=== PATIENT | female | born 1935 | race Caucasian/White ===

== ENCOUNTER 2017-10-26 11:45 | Inpatient (IN) ==
--- NOTE | 2017-10-26 12:01 | Emergency Department Note ---
Disposition Clinical Impression: Hypotension Qualifiers: Hypotension type: unspecified hypotension type Qualified Code(s): I95.9 - Hypotension, unspecified Disposition: Still a Patient General Adult HPI - General Chief complaint: ED Allergic Reaction Stated complaint: Allergic reaction not in distress Time Seen by Provider: 10/26/17 11:50 - History of Present Illness Pain Scale: 5 - Related Data Home Medications Medication Instructions Recorded Confirmed Ascorbate Calcium/Bioflavonoid 1 each PO DAILY 01/29/17 08/21/17 [Shruthi-C 500 mg Tablet] Aspirin [Lo-Dose Aspirin EC] 81 mg PO DAILY 01/29/17 08/21/17 Atenolol/Chlorthalidone [Tenoretic 1 each PO DAILY 01/29/17 08/21/17 50 Tablet] Ergocalciferol (VITAMIN D2) 2,000 unit PO DAILY 01/29/17 08/21/17 [Vitamin D2] Febuxostat [Uloric] 40 mg PO DAILY 01/29/17 08/21/17 Fluticasone Propionate [Flovent 100 mcg IH BID 01/29/17 08/21/17 Diskus] Furosemide [Lasix] 20 mg PO QPM 01/29/17 08/21/17 Furosemide [Lasix] 40 mg PO QAM 01/29/17 08/21/17 Losartan Potassium [Cozaar] 25 mg PO DAILY 01/29/17 08/21/17 Magnesium Oxide [Magnesium] 250 mg PO DAILY 01/29/17 08/21/17 Montelukast [Singulair] 10 mg PO DAILY 01/29/17 08/21/17 Multivitamin [Multivitamins] 1 each PO AD 01/29/17 08/21/17 Nitrofurantoin Macrocrystal 100 mg PO BID 01/29/17 08/21/17 [Nitrofurantoin] [place]-3/Dha/Epa/Fish Oil [Fish Oil 1 each PO BID 01/29/17 08/21/17 1,000 mg Softgel] Potassium Chloride [K-Tab ER] 20 meq PO TID 01/29/17 08/21/17 Simvastatin [Zocor] 20 mg PO HS 01/29/17 08/21/17 Tiotropium [Spiriva] 18 mcg IH DAILY 01/29/17 08/21/17 Vitamin B12 100 mcg PO DAILY 01/29/17 08/21/17 Vitamin E (Dl,Tocopheryl Acet) 400 unit PO DAILY 01/29/17 08/21/17 [Vitamin E] Fluticasone Propionate Nasal 1 spray IN DAILY 05/18/17 08/21/17 [Flonase] Ipratropium [place] 2 spray NS BID 08/21/17 08/21/17 Ipratropium/Albuterol Neb [Duoneb] 3 ml IH Q6HR 08/21/17 08/21/17 Nitrofurantoin Macrocrystal 100 mg PO DAILY 08/21/17 08/21/17 [Nitrofurantoin] Pentoxifylline [TRENtal] 400 mg PO BIDWM 08/21/17 08/21/17 PredniSONE [Deltasone] 20 mg PO DAILY 08/21/17 08/21/17 Rivaroxaban [Xarelto] 20 mg PO DAILY 08/21/17 08/21/17 Sucralfate [Carafate] 1 gm PO BID 08/21/17 08/21/17 Sulfamethoxazole/Trimeth DS 1 each PO BID 08/21/17 08/21/17 [Bactrim DS] Allergies Allergy/AdvReac Type Severity Reaction Status Date / Time cefuroxime Allergy Rash Verified 10/26/17 11:49 cephalexin [From Keflex] Allergy Rash Verified 10/26/17 11:49 doxycycline Allergy Rash Verified 10/26/17 11:49 Penicillins [PCN] Allergy Rash Verified 10/26/17 11:49 Sulfa (Sulfonamide Allergy Rash Verified 10/26/17 11:49 Antibiotics) Past Medical History - Social History Smoking Status: Never smoker Smokeless Tobacco Status: No Alcohol use: Reports: none Drug use: Reports: none Course Vital Signs Temperature 98.3 F 10/26/17 11:47 Pulse Rate 78 10/26/17 11:47 Respiratory Rate 16 10/26/17 11:47 Blood Pressure 77/53 10/26/17 11:47 O2 Sat by Pulse Oximetry 93 10/26/17 11:47 Temperature 98.3 F 10/26/17 11:47 Pulse Rate 78 10/26/17 11:47 Respiratory Rate 16 10/26/17 11:47 Blood Pressure 77/53 10/26/17 11:47 O2 Sat by Pulse Oximetry 93 10/26/17 11:47 Oxygen Delivery Oxygen Delivery Room Air Attestation Statement - Attestation Attestation: I examined this patient and my medical decision-making was reviewed with the Resident Physician. I agree with the documented findings, disposition and treatment plan as described except to the extent set forth below. 82 year old female who has beeen battling a LLE celluliti snad was most recently amdtted to the hospital for treatment and is currently on PO meds. Patient staets that for the past few days she has been experiencing some neck pain in the back that radiates to the front. Patient also has a chronic cough and is hypotensive. Shes tates that she might be allergic to PCN but is unsure and there is report she may have had white patches on her tongue. PAtient is asymptomatic right now. We will do sepsis workup and then assess her LLE for worsening of presentation although she is relunctant. She will likely be admitted.
[2017-10-26] MEDS ORDERED: 0.9 % Sodium Chloride 1,000 ML IVC ONE (12:02)
--- NOTE | 2017-10-26 12:03 | Emergency Department Note ---
Disposition Clinical Impression: Hypoxia, Acute kidney injury, Skin lesion of right lower extremity Hypotension Qualifiers: Hypotension type: unspecified hypotension type Qualified Code(s): I95.9 - Hypotension, unspecified Disposition: Admitted As Inpatient Referrals: Hawa Patterson MD [Primary Care Provider] - Forms: ED Satisfaction Letter Time of Disposition: 15:33 General Adult HPI - General Chief complaint: ED Allergic Reaction Stated complaint: Allergic reaction not in distress Time Seen by Provider: 10/26/17 11:50 Source: patient, family Mode of arrival: ambulatory Limitations: no limitations Nursing Notes Reviewed: Yes Vital Signs Reviewed: Yes - History of Present Illness HPI Narrative: Patient is an 82-year-old female with past medical history of right lower extremity skin wound and localized cellulitis. She was recently discharged from the hospital due to this complication. She was discharged from 3 days ago and was placed on Augmentin. She has been taking this and says she last saw fell. She is unsure if she has ever taken this medication in the past. The past 2 days, she started having mild pain in the back of her neck that radiated into the front of her neck gradually. She felt as though it was a squeezing sensation. She was concerned that she could be having an allergic reaction to Augmentin and came in for further evaluation. She also admits to worsening cough and shortness of breath above baseline. Denies any other lip swelling, tongue swelling, any nausea, vomiting, fevers, diarrhea, abdominal pain. Her right lower extremity is wrapped and she is going back Sunday to have it rechecked, so she is not sure if her redness is improving or not. Pain Scale: 5 - Related Data Home Medications Medication Instructions Recorded Confirmed Ascorbate Calcium/Bioflavonoid 1 each PO DAILY 01/29/17 10/26/17 [Shruthi-C 500 mg Tablet] Aspirin [Lo-Dose Aspirin EC] 81 mg PO DAILY 01/29/17 10/26/17 Atenolol/Chlorthalidone [Tenoretic 1 each PO DAILY 01/29/17 10/26/17 50 Tablet] Ergocalciferol (VITAMIN D2) 2,000 unit PO DAILY 01/29/17 10/26/17 [Vitamin D2] Febuxostat [Uloric] 40 mg PO DAILY 01/29/17 10/26/17 Furosemide [Lasix] 20 mg PO QPM 01/29/17 10/26/17 Furosemide [Lasix] 40 mg PO QAM 01/29/17 10/26/17 Losartan Potassium [Cozaar] 25 mg PO DAILY 01/29/17 10/26/17 Montelukast [Singulair] 10 mg PO DAILY 01/29/17 10/26/17 Multivitamin [Multivitamins] 1 each PO AD 01/29/17 10/26/17 [place]-3/Dha/Epa/Fish Oil [Fish Oil 1 each PO BID 01/29/17 10/26/17 1,000 mg Softgel] Potassium Chloride [K-Tab ER] 20 meq PO TID 01/29/17 10/26/17 Simvastatin [Zocor] 20 mg PO HS 01/29/17 10/26/17 Vitamin E (Dl,Tocopheryl Acet) 400 unit PO DAILY 01/29/17 10/26/17 [Vitamin E] Fluticasone Propionate Nasal 1 spray IN DAILY 05/18/17 10/26/17 [Flonase] Ipratropium/Albuterol Neb [Duoneb] 3 ml IH Q6HR 08/21/17 10/26/17 Nitrofurantoin [place] 100 mg PO DAILY 08/21/17 10/26/17 [Nitrofurantoin] Pentoxifylline [TRENtal] 400 mg PO DAILY 08/21/17 10/26/17 Rivaroxaban [Xarelto] 20 mg PO DAILY 08/21/17 10/26/17 Cyanocobalamin (Vitamin B-12) 100 mcg PO DAILY 10/26/17 10/26/17 [Vitamin B-12] Allergies Allergy/AdvReac Type Severity Reaction Status Date / Time cefuroxime Allergy Rash Verified 10/26/17 11:49 cephalexin [From Keflex] Allergy Rash Verified 10/26/17 11:49 doxycycline Allergy Rash Verified 10/26/17 11:49 gabapentin Allergy Rash Verified 10/26/17 13:25 levofloxacin [From Levaquin] Allergy Rash Verified 10/26/17 13:25 Penicillins [PCN] Allergy Rash Verified 10/26/17 11:49 Sulfa (Sulfonamide Allergy Rash Verified 10/26/17 11:49 Antibiotics) All systems ED: reviewed and negative except as stated. Constitutional: Denies: fever ENT ED: Reports: throat pain Cardiovascular: Denies: chest pain Respiratory: Reports: cough, dyspnea Gastrointestinal: Denies: abdominal pain, nausea, vomiting, diarrhea Genitourinary: Denies: urgency, dysuria, frequency, hematuria Neurological: Denies: headache, weakness, numbness Past Medical History - Past Medical History Attestation: Yes The following information was validated with the patient. Source: patient Medical history: Reports: asthma, COPD, hyperlipidemia, hypertension Psychiatric history: Reports: no psych history - Social History Smoking Status: Never smoker Smokeless Tobacco Status: No Alcohol use: Reports: none Drug use: Reports: none Physical Exam - General Limitations: no limitations General appearance: alert, in no apparent distress - Head Head exam: atraumatic, normocephalic, normal inspection - Eye Eye exam: Present: normal appearance, PERRL, EOMI - ENT ENT exam: normal exam, normal oropharynx, mucous membranes moist - Neck Neck exam: Present: normal inspection, full ROM, trachea midline. Absent: tenderness, lymphadenopathy - Chest Chest inspection: Present: normal inspection, symmetric chest wall rise - Respiratory Respiratory exam: Present: normal lung sounds bilaterally - Cardiovascular Cardiovascular exam: Present: regular rate, normal rhythm, normal heart sounds - Abdominal Exam Abdominal exam: Present: soft, Non-Tender. Absent: tenderness, distention, guarding, rebound, rigidity - Extremities Exam Extremities exam: Present: other (Partial thickness skin tear, right lower extremity that is partially circumferential, measuring proximally 3 cm at its widest and told to 15 cm in length. Mild erythema surrounding, improved from picture; no pus drainage) - Neurological Exam Neurological exam: Present: alert, oriented X3 - Psychiatric Psychiatric exam: Present: normal affect, normal mood - Skin Skin exam: Present: warm, dry, intact, normal color Course Course Narrative: Patient satting around 89%, had be placed on 2 L nasal cannula oxygen to keep saturation above 89. Blood pressure low, systolic in the 70s to 80s. The rest of the vitals were within normal limits. Physical exam showed clear lungs, abdomen soft and nontender, heart regular rate and rhythm. Extremity exam shows : Right lower extremity - Partial thickness skin tear, right lower extremity that is partially circumferential, measuring proximally 3 cm at its widest and told to 15 cm in length. Mild erythema surrounding, improved from picture; no pus drainage. With hypoxia and low BP, there is concern for PE. We discussed CT of the chest for further assessment and patient was agreeable with this. Due to low blood pressure and hypoxia, there is also concern for pneumonia. We will also obtain EKG and troponin. Patient was given 1 L normal saline bolus for hypotension. She is mentating well at this time and has no lightheadedness or dizziness. 13:59 patient has elevated troponin. No current chest pain. Patient was given aspirin. Heparin at this time. no ekg changes. creatinine was elevated about patient's baseline. she started being given fluids due to hypotension that will help with this. patient was not able to have CT of the chest due to poor renal function. CT noncontrast of the chest showed no signs of pneumonia. There was a small pleural effusion and trace pericardial effusion. VQ scan was ordered for further assessment for PE. Results currently pending. 14:35 VQ scan result low probability for PE. Patient still requires 2 L nasal cannula oxygen to maintain saturation above 88%. We will give the patient signed Medrol and DuoNebs to see if this. The pressure has improved from 70 systolic to 90. We will give additional fluids at this time. Patient continues to have good mentation, no lightheadedness or dizziness at this time. Patient has multiple allergies to medications and is improving on Augmentin. She already took today's dose prior to coming to the ER. I do not think that this is allergic reaction in nature. Will defer future antibioitics to hospitalist team. Spoke with Dr. Jacome with cardiology. We discussed EKG, troponin elevation, no chest pain, previous complaint of shortness of breath but none currently. The patient is not having any chest pain or shortness of breath, he did not recommend starting heparin at this time. Chest X-Ray 10/26/17 11:59 IMPRESSION: 1. New small bilateral pleural effusions. D/ / Missael Wilder MD / Missael Wilder MD Interpreting Provider: Missael Wilder MD Chest CT 10/26/17 12:10 IMPRESSION: Trace pericardial effusion and left pleural effusion. Bibasilar atelectasis and scarring. No overt pulmonary edema. D/ / 10/26/2017 13:50:10 Venkat Paredes MD / ponce Interpreting Provider: Venkat Paredes MD Pulmonary Perfusion Imaging 10/26/17 12:57 IMPRESSION: 1. Low probability for pulmonary embolism. 2. Clumped activity in the central airways could be related to poor inspiratory effort and/or airways disease. D/ / Johnnie Maya MD / Johnnie Maya MD Interpreting Provider: Johnnie Maya MD Vital Signs Temperature 98.3 F 10/26/17 11:47 Pulse Rate 78 10/26/17 11:47 Respiratory Rate 16 10/26/17 11:47 Blood Pressure 77/53 10/26/17 11:47 O2 Sat by Pulse Oximetry 93 10/26/17 11:47 Temperature 98.3 F 10/26/17 11:54 Pulse Rate 70 10/26/17 14:59 Respiratory Rate 18 10/26/17 15:03 Blood Pressure 84/50 10/26/17 14:59 O2 Sat by Pulse Oximetry 98 10/26/17 15:03 Oxygen Delivery Oxygen Delivery Room Air Medical Decision Making - [facility] [place] Narrative Medical decision making narrative: Patient satting around 89%, had be placed on 2 L nasal cannula oxygen to keep saturation above 89. Blood pressure low, systolic in the 70s to 80s. The rest of the vitals were within normal limits. Physical exam showed clear lungs, abdomen soft and nontender, heart regular rate and rhythm. Extremity exam shows : Right lower extremity - Partial thickness skin tear, right lower extremity that is partially circumferential, measuring proximally 3 cm at its widest and told to 15 cm in length. Mild erythema surrounding, improved from picture; no pus drainage. With hypoxia and low BP, there is concern for PE. We discussed CT of the chest for further assessment and patient was agreeable with this. Due to low blood pressure and hypoxia, there is also concern for pneumonia. We will also obtain EKG and troponin. Patient was given 1 L normal saline bolus for hypotension. She is mentating well at this time and has no lightheadedness or dizziness. 13:59 patient has elevated troponin. No current chest pain. Patient was given aspirin. Heparin at this time. no ekg changes. creatinine was elevated about patient's baseline. she started being given fluids due to hypotension that will help with this. patient was not able to have CT of the chest due to poor renal function. CT noncontrast of the chest showed no signs of pneumonia. There was a small pleural effusion and trace pericardial effusion. VQ scan was ordered for further assessment for PE. Results currently pending. 14:35 VQ scan result low probability for PE. Patient still requires 2 L nasal cannula oxygen to maintain saturation above 88%. We will give the patient signed Medrol and DuoNebs to see if this. The pressure has improved from 70 systolic to 90. We will give additional fluids at this time. Patient continues to have good mentation, no lightheadedness or dizziness at this time. Patient has multiple allergies to medications and is improving on Augmentin. She already took today's dose prior to coming to the ER. I do not think that this is allergic reaction in nature. Will defer future antibioitics to hospitalist team. Spoke with Dr. Jacome with cardiology. We discussed EKG, troponin elevation, no chest pain, previous complaint of shortness of breath but none currently. The patient is not having any chest pain or shortness of breath, he did not recommend starting heparin at this time. - Medical Records Medical records reviewed: Yes I reviewed the patient's medical records. - Lab Data Lab results reviewed: Yes I reviewed the patient's lab results. Result diagrams: 10/26/17 12:11 10/26/17 12:11 Lab Results 10/26/17 10/26/17 10/26/17 Range/Units 12:11 12:11 12:11 WBC 11.5 H (4.3-11.1) K/mcL RBC 3.79 L (3.82-4.97) M/mcL Hgb 11.1 L (11.5-15.4) g/dL Hct 32.8 L (35.3-44.9) % MCV 86.5 (83.0-100.0) fL MCH 29.3 (28.0-33.3) pg MCHC 33.8 (31.6-35.5) g/dL RDW 15.3 H (11.5-14.5) % Plt Count 214 (140-400) K/mcL MPV 9.3 L (9.4-12.4) fL Immature Gran % 0.3 (0-4) % Seg Neutrophils % 72.8 % Lymphocytes % 16.2 % Monocytes % 10.1 % Eosinophils % 0.2 % Basophils % 0.4 % Neutrophils # 8.4 (1.6-8.9) K/mcL Lymphocytes # 1.9 (0.6-4.6) K/mcL Monocytes # 1.2 (0.0-1.3) K/mcL Eosinophils # 0.0 (0.0-0.6) K/mcL Basophils # 0.1 (0.0-0.2) K/mcL Sodium 135 L (136-145) mEq/L Potassium 3.9 (3.5-5.1) mEq/L Chloride 103 (98-107) mEq/L Carbon Dioxide 25 (23-29) mEq/L BUN 40 H (8-23) mg/dL Creatinine 1.30 H (0.60-1.20) mg/dL Est GFR ( Amer) 48 L (> 60) Est GFR (Non-Af Amer) 39 L (> 60) BUN/Creatinine Ratio 31 H (6-26) Glucose 134 H (70-105) mg/dL Calculated Osmolality 292 (280-300) Lactic Acid 1.2 (0.5-2.2) mmol/L Calcium 8.9 (8.6-10.3) mg/dL Troponin I 0.12 H* (< 0.04) ng/mL B-Natriuretic Peptide (Less than 100) pg/mL 10/26/17 Range/Units 12:11 WBC (4.3-11.1) K/mcL RBC (3.82-4.97) M/mcL Hgb (11.5-15.4) g/dL Hct (35.3-44.9) % MCV (83.0-100.0) fL MCH (28.0-33.3) pg MCHC (31.6-35.5) g/dL RDW (11.5-14.5) % Plt Count (140-400) K/mcL MPV (9.4-12.4) fL Immature Gran % (0-4) % Seg Neutrophils % % Lymphocytes % % Monocytes % % Eosinophils % % Basophils % % Neutrophils # (1.6-8.9) K/mcL Lymphocytes # (0.6-4.6) K/mcL Monocytes # (0.0-1.3) K/mcL Eosinophils # (0.0-0.6) K/mcL Basophils # (0.0-0.2) K/mcL Sodium (136-145) mEq/L Potassium (3.5-5.1) mEq/L Chloride (98-107) mEq/L Carbon Dioxide (23-29) mEq/L BUN (8-23) mg/dL Creatinine (0.60-1.20) mg/dL Est GFR ( Amer) (> 60) Est GFR (Non-Af Amer) (> 60) BUN/Creatinine Ratio (6-26) Glucose (70-105) mg/dL Calculated Osmolality (280-300) Lactic Acid (0.5-2.2) mmol/L Calcium (8.6-10.3) mg/dL Troponin I (< 0.04) ng/mL B-Natriuretic Peptide 306 H (Less than 100) pg/mL - Radiology Data Radiology results reviewed: Yes I reviewed the patient's radiology results. Chest X-Ray 10/26/17 11:59 IMPRESSION: 1. New small bilateral pleural effusions. D/ / Missael Wilder MD / Missael Wilder MD Interpreting Provider: Missael Wilder MD Chest CT 10/26/17 12:10 IMPRESSION: Trace pericardial effusion and left pleural effusion. Bibasilar atelectasis and scarring. No overt pulmonary edema. D/ / 10/26/2017 13:50:10 Venkat Paredes MD / ponce Interpreting Provider: Venkat Paredes MD Pulmonary Perfusion Imaging 10/26/17 12:57 IMPRESSION: 1. Low probability for pulmonary embolism. 2. Clumped activity in the central airways could be related to poor inspiratory effort and/or airways disease. D/ / Johnnie Maya MD / Johnnie Maya MD Interpreting Provider: Johnnie Maya MD - EKG Data EKG #1 EKG attestation: Yes I reviewed and interpreted this EKG. EKG results narrative: 10/26/2017 at 12:01. Normal sinus rhythm. Rate 76. NC 195. QRS 87. QTC 411. Normal axis. T-wave inversion in V1, V2, V3. No other acute ST elevation or depression. T-wave changes are chronic from previous EKG on 2013. S.B.A.R. - S.B.A.R. Situation: Demographics, MOA Background: Presenting Complaint, Relevant PMH, Meds, & Allergies Assessment: Vital Signs, Course and respsone to treatment, Exam Concerns, Pertinant Lab Results Recommendation: Barrier(s) to disposition, Recommendation based on pending studies, treatments, or consults S.B.A.R. Report Given to: Dr. Navarro
[2017-10-26 12:28] LABS: Basophils # 0.1 K/mcL (0.0-0.2); Basophils % 0.4 %; Eosinophils % 0.2 %; Hematocrit 32.8 % (35.3-44.9); Hemoglobin 11.1 g/dL (11.5-15.4); Immature Granulocytes % 0.3 % (0-4); Lymphocytes # 1.9 K/mcL (0.6-4.6); Lymphocytes % 16.2 %; Mean Corpuscular HGB Conc 33.8 g/dL (31.6-35.5); Mean Corpuscular Hemoglobin 29.3 pg (28.0-33.3); Mean Corpuscular Volume 86.5 fL (83.0-100.0); Mean Platelet Volume 9.3 fL (9.4-12.4); Monocytes # 1.2 K/mcL (0.0-1.3); Monocytes % 10.1 %; Neutrophils # 8.4 K/mcL (1.6-8.9); Platelet Count 214 K/mcL (140-400); Red Blood Count 3.79 M/mcL (3.82-4.97); Red Cell Distribution Width 15.3 % (11.5-14.5); Segmented Neutrophils % 72.8 %
[2017-10-26 12:45] LABS: Troponin I 0.12 ng/mL (< 0.04)
[2017-10-26 12:48] LABS: Calcium 8.9 mg/dL (8.6-10.3); Potassium 3.9 mEq/L (3.5-5.1)
[2017-10-26] MEDS ORDERED: Aspirin 325 MG TABLET PO ONE (13:04)
[2017-10-26] MEDS ORDERED: 0.9 % Sodium Chloride 1,000 ML IVC SCH (14:30)
[2017-10-26] MEDS ORDERED: methylPREDNISolone 125 MG/2 ML VIAL IVP ONE (14:41)
[2017-10-26] MEDS ORDERED: Ipratropium/Albuterol Neb 3 ML IH ONE (14:41)
[2017-10-26] MEDS ORDERED: Naloxone 0.4 MG/ML INJ IVP PRN (16:13)
[2017-10-26] MEDS ORDERED: Acetaminophen 325 MG TABLET PO PRN (16:24)
[2017-10-26] MEDS ORDERED: Dextrose Gel 15 GM/37.5 ML TUBE PO PRN ×2 (16:27)
[2017-10-26] MEDS ORDERED: D5% in Water 1,000 ML IVC PRN (16:27)
[2017-10-26] MEDS ORDERED: *HR* Dextrose 50 % in Water (Syg) 50 ML SYRINGE IVP PRN (16:27)
--- NOTE | 2017-10-26 17:25 | Internal Med History&Physical ---
<RadhaNorbert - Last Filed: 10/26/17 18:55> Date of Encounter: 10/26/17 Time of Encounter: 15:30 Internal Medicine - H&P: HPI Chief complaint: SOB/Dyspnea Admitted From: Emergency Dept Plans for Post Hospital Care: Home History of present illness: Ms. Sanders is a 82 year old female w/PMH of asthma, COPD, HLD, and HTN presents from the ED with chief complaint of shortness of breath and dyspnea that began Sunday and became worse last night. Patient was recently admitted within 1 week to [facility] for cellulitis of RLE for 3 weeks and discharged on Augmentin. Patient took several doses and began to experience shortness of breath, cough, and feeling of allergic reaction. Patient has extensive abx allergies. Denies lip swelling, tongue swelling. 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 Reports CP w/cough and unsteadiness on feet but denies use of home oxygen but uses DuoNeb' s every 6 at home. Patient denies recent illness, fever, chills, nausea, vomiting, changes in vision, unusual bleeding, palpitations, numbness, tingling , dizziness, lightheadedness, pre-syncope, or syncope. Past Med Surg Social Fam HX - Past Medical History Source: patient, old records reviewed, obtained from family Medical history: asthma, COPD, hyperlipidemia, hypertension Psychiatric history: no psych history - Social History Smoking Status: Never smoker Smokeless Tobacco Status: No Alcohol use: none Drug use: none Current living situation: Home, With Family Activity Level: Independent ambulation Recent Out of Country Travel Within the Last 8 Weeks: No Exposure or Possible Exposure to Illness During Travel: No - Family History Father Race: Family Member Ethnicity: Non- Age at : 53 Cause of : Leukemia Hx Family Cancer: Yes (Leukemia) Mother Race: Family Member Ethnicity: Non- Living Status: Age at : 67 Cause of : Lung cancer Hx Family Cancer: Yes (Lung) Brother Race: Family Member Ethnicity: Non- Living Status: Age at : 54 Cause of : Lung cancer Hx Family Respiratory Disorders: Yes (COPD/Emphysema) Hx Family Cancer: Yes (Lung) Sister Race: Family Member Ethnicity: Non- Living Status: Still Living Hx Family Respiratory Disorders: Yes (COPD/Emphysema) Hx Family Cancer: Yes (Lung) Internal Medicine - H&P: Meds Ascorbate Calcium/Bioflavonoid [Shruthi-C 500 mg Tablet] 1 each PO DAILY 01/29/17 [History] Aspirin [Lo-Dose Aspirin EC] 81 mg PO DAILY 01/29/17 [History] Atenolol/Chlorthalidone [Tenoretic 50 Tablet] 1 each PO DAILY 01/29/17 [History] Ergocalciferol (VITAMIN D2) [Vitamin D2] 2,000 unit PO DAILY 01/29/17 [History] Febuxostat [Uloric] 40 mg PO DAILY 01/29/17 [History] Furosemide [Lasix] 20 mg PO QPM 01/29/17 [History] Furosemide [Lasix] 40 mg PO QAM 01/29/17 [History] Losartan Potassium [Cozaar] 25 mg PO DAILY 01/29/17 [History] Montelukast [Singulair] 10 mg PO DAILY 01/29/17 [History] Multivitamin [Multivitamins] 1 each PO AD 01/29/17 [History] [place]-3/Dha/Epa/Fish Oil [Fish Oil 1,000 mg Softgel] 1 each PO BID 01/29/17 [ History] Potassium Chloride [K-Tab ER] 20 meq PO TID 01/29/17 [History] Simvastatin [Zocor] 20 mg PO HS 01/29/17 [History] Vitamin E (Dl,Tocopheryl Acet) [Vitamin E] 400 unit PO DAILY 01/29/17 [History] Fluticasone Propionate Nasal [Flonase] 1 spray IN DAILY 05/18/17 [History] Ipratropium/Albuterol Neb [Duoneb] 3 ml IH Q6HR 08/21/17 [History] Nitrofurantoin Macrocrystal [Nitrofurantoin] 100 mg PO DAILY 08/21/17 [History] Pentoxifylline [TRENtal] 400 mg PO DAILY 08/21/17 [History] Rivaroxaban [Xarelto] 20 mg PO DAILY 08/21/17 [History] Cyanocobalamin (Vitamin B-12) [Vitamin B-12] 100 mcg PO DAILY 10/26/17 [History] 3 Allergy/AdvReac Type Severity Reaction Status Date / Time cefuroxime Allergy Rash Verified 10/26/17 11:49 cephalexin [From Keflex] Allergy Rash Verified 10/26/17 11:49 doxycycline Allergy Rash Verified 10/26/17 11:49 gabapentin Allergy Rash Verified 10/26/17 13:25 levofloxacin [From Levaquin] Allergy Rash Verified 10/26/17 13:25 Penicillins [PCN] Allergy Rash Verified 10/26/17 11:49 Sulfa (Sulfonamide Allergy Rash Verified 10/26/17 11:49 Antibiotics) All Systems PM: A 10-system review of systems was performed and is negative for pertinent findings except as documented above in the HPI. - Constitutional Constitutional: as per HPI, weakness, no chills, no fever(s), no night sweats - EENT Eyes: no change in vision, no discharge, no pain, no photophobia Ears: no ear discharge, no ear pain, no tinnitus Nose, mouth and throat: no dysphagia, no nasal discharge, no neck pain, no sore throat - Breasts Breasts: as per HPI - Cardiovascular Cardiovascular ROS IM: as per HPI, chest pain, dyspnea, dyspnea on exertion, orthopnea, no diaphoresis, no lightheadedness, no palpitations, no syncope - Respiratory Respiratory: as per HPI, cough, dyspnea, dyspnea on exertion, pain with cough, no wheezing, no excessive phlegm production - Gastrointestinal Gastrointestinal: no abdominal pain, no diarrhea, no hematemesis, no hematochezia, no melena, no nausea, no vomiting - Genitourinary Genitourinary: no change in urinary stream, no dysuria, no flank pain, no hematuria Menstruation: as per HPI - Musculoskeletal Musculoskeletal ROS IM: no numbness, no tingling - Integumentary Integumentary IM: no rash, no unusual bruising - Neurological Neurological ROS: no confusion, no convulsions, no focal weakness, no numbness, no tingling, no tremor(s) - Psychiatric Psychiatric: as per HPI - Endocrine Endocrine IM: as per HPI - Hematologic/Lymphatic Hematologic/Lymphatic: no easy bruising - Allergic/Immunologic Allergic/Immunologic: as per HPI - Constitutional Vitals: Temp Pulse Resp BP Pulse Ox 98 F 87 17 111/60 94 10/26/17 17:07 10/26/17 17:07 10/26/17 17:07 10/26/17 17:07 10/26/17 17:07 General appearance: Present: cooperative, mild distress (Respiratory), A&O X 3, pleasant, obese, answers questions appropriately - Head Head exam: Present: atraumatic, normocephalic - Eye Eye exam: Present: PERRL, conjuntiva pink, sclera anicteric Pupils: Present: PERRL - ENT ENT exam: Present: normal exam - Neck Neck exam general surgery: Present: normal inspection, supple, trachea midline. Absent: lymphadenopathy - Respiratory Respiratory exam: Present: accessory muscle use, chest wall tenderness, wheezes. Absent: rales, rhonchi - Cardiovascular Cardiovascular exam: Present: RRR, +S1, +S2. Absent: diastolic murmur, gallop, rubs, systolic murmur - GI/Abdominal GI/Abdominal exam: Present: normal bowel sounds, soft, no peritoneal signs. Absent: distended, tenderness - Rectal Rectal exam: Present: deferred - Additional comments: exam deferred. - Extremities Exam Extremities exam: Present: pedal edema (RLE w/erythema d/t cellulitis), warm, radial pulses palpable and symmetrical. Absent: calf tenderness, cyanotic - Back Exam Back exam: Present: normal inspection - Neurological Exam Neurological exam: Present: CN II-XII intact, oriented X3, no focal deficits. Absent: pronater drift, facial droop, speech deficit - Psychiatric Psychiatric exam: Present: normal affect, normal mood - Skin Skin exam: Present: dry, erythema (RLE d/t current cellulitis), intact Internal Med - H&P Results - Labs CBC & Chem 7: 10/26/17 12:11 10/26/17 12:11 - EKG Data EKG shows normal: sinus rhythm - EKG Data Prior EKG available for review: yes Interpretation IM: suggestive of ischemia EKG comments: 10/26/17 18:07 EKG dated 02/15/14 shows sinus rhythm with extensive ST-T changes may be due to myocardial ischemia. EKG dated 10/26/17 shows sinus rhythm with ST deviation and moderate T-wave abnormality. Consider anterior ischemia. - Diagnostic Studies Chest x-ray Additional comments: Impressions Chest X-Ray 10/26/17 11:59 IMPRESSION: 1. New small bilateral pleural effusions. D/ / Missael Wilder MD / Missael Wilder MD Interpreting Provider: Missael Wilder MD CT scan - chest Additional comments: Impressions Chest CT 10/26/17 12:10 IMPRESSION: Trace pericardial effusion and left pleural effusion. Bibasilar atelectasis and scarring. No overt pulmonary edema. D/ / 10/26/2017 13:50:10 Venkat Paredes MD / ponce Interpreting Provider: Venkat Paredes MD Other Images Additional comments: Impressions Pulmonary Perfusion Imaging 10/26/17 12:57 IMPRESSION: 1. Low probability for pulmonary embolism. 2. Clumped activity in the central airways could be related to poor inspiratory effort and/or airways disease. D/ / Johnnie Maya MD / Johnnie Maya MD Interpreting Provider: Johnnie Maya MD - Assessment and plan (1) CHF exacerbation Current Visit: Yes Status: Acute Assessment and plan: Acute and new onset of CHF exacerbation complicated by bronchitis and COPD exacerbation. No previous dx. BNP 306 on admission. Pt. was hypoxic on admission but improved w/DuoNebs tx and supplemental O2. Concern for PE given pts. hx, but VQ scan not indicative for PE. Pt. currently on Xarelto. Echocardiogram ordered. 1.5L daily fluid restriction. Will continue pts. PO lasix d/t presence of very little pedal edema. Will use IV fluids judiciously d/ t current CHF and renal dysfunction. Monitor I&O and daily weight. Continuous cardiac telemetry. DuoNeb's every 4 scheduled. Supplemental O2 with titration and SPO2 monitoring. Pt. discussed w/Dr. Coreas who agrees w/plan of care. Pt. is high risk for further morbidity, respiratory, and/or cardiac distress d/t current CHF/COPD exacerbations, CP and elevated troponin, hx of DVT/PE on Xarelto, asthma hx, and risk factors. Inpatient. Qualifiers: Heart failure type: unspecified Qualified Code(s): I50.9 - Heart failure, unspecified (2) COPD exacerbation Current Visit: Yes Status: Acute Assessment and plan: Acute exacerbation of COPD. Hx of asthma w/o inhaler use. Patient denies use of home oxygen but reports use of DuoNeb's every 6 hour. IVPB azithromycin 500 mg daily for bronchitis infection. DuoNeb's every 4 hours scheduled. Solu- Medrol 60 mg every 8. Supplemental O2 with titration and SPO2 monitoring. (3) Diarrhea Current Visit: Yes Status: Acute Assessment and plan: Acute watery diarrhea for the past several days. Was hospitalized at [facility] and placed on IV abx for cellulitis. C. difficile toxin and contact precautions until resulted. Imodium if warranted. Monitor I&O. Qualifiers: Diarrhea type: presumed infectious Qualified Code(s): R19.7 - Diarrhea, unspecified (4) Skin lesion of right lower extremity Current Visit: Yes Status: Acute Assessment and plan: Hx of acute cellulitis for the past three weeks. Was admitted to [facility] one week ago for cellulitis and discharged on Augmentin. Pt. and family report not much improvement in skin lesion. IVPB azithromycin ordered for bronchitis which will cover cellulitis as well. Wound Care consult and daily wound care ordered. Monitor site for signs of increasing drainage/infection. (5) Bronchitis Current Visit: Yes Status: Acute Assessment and plan: Acute bronchitis w/COPD exacerbation. WBC 11.5. Worsening cough w/white sputum production. IVPB azithromycin for infection coverage. Respiratory infection panel ordered. Blood cultures 2. Will adjust abx coverage based on culture/ panel results. (6) Elevated troponin Current Visit: Yes Status: Acute Assessment and plan: Acutely elevated troponin of 0.12 on admission. Most likely reactive to current COPD/CHF exacerbations complicated by bronchitis. Pt. reports CP w/coughing. Will trend. Cardiology consult ordered in ED. Continuous cardiac telemetry. (7) Hypoxia Current Visit: Yes Status: Acute Assessment and plan: Acute hypoxia d/t current COPD exacerbation complicated by CHF exacerbation. DuoNebs Q4HR scheduled. Mucinex for cough. Supplemental O2 w/titration and SpO2 monitoring. Will add BiPAP if warranted. (8) CKD (chronic kidney disease) stage 3, GFR 30-59 ml/min Current Visit: Yes Status: Chronic Assessment and plan: Hx of CKD, currently stage III w/GFR of 39 and creatinine of 1.30. Will use IV fluids judiciously if warranted d/t current renal dysfunction and CHF exacerbation. Monitor I&O. Avoid nephrotoxins. (9) Asthma Current Visit: Yes Status: Chronic Assessment and plan: Hx of chronic asthma. Pt. denies use of inhaler but reports using DuoNebs @ home Q6HR. DuoNebs Q4HR scheduled. Supplemental O2 w/titration and SpO2 monitoring. Qualifiers: Asthma severity: unspecified severity Asthma persistence: unspecified Asthma complication type: unspecified Qualified Code(s): J45.909 - Unspecified asthma, uncomplicated (10) HLD (hyperlipidemia) Current Visit: Yes Status: Chronic Assessment and plan: Hx of chronic HLD. Lipid panel in a.m. labs. Continue pts. Zocor. Qualifiers: Hyperlipidemia type: pure hypercholesterolemia Qualified Code(s): E78.00 - Pure hypercholesterolemia, unspecified; E78.0 - Pure hypercholesterolemia (11) HTN (hypertension) Current Visit: Yes Status: Chronic Assessment and plan: Hx of chronic HTN. Monitor pt. and VS. Continue pts. Atenolol and Cozaar. Qualifiers: Hypertension type: essential hypertension Qualified Code(s): I10 - Essential (primary) hypertension (12) Gout Current Visit: Yes Status: Chronic Assessment and plan: Hx of chronic gout. Continue pts. Uloric. Qualifiers: Gout site: unspecified site Gout etiology: unspecified cause Chronicity: chronic Presence of tophus: without tophus Qualified Code(s): M1A.9XX0 - Chronic gout, unspecified, without tophus (tophi) (13) DVT prophylaxis Current Visit: Yes Status: Acute Assessment and plan: Continue patient's Xarelto for DVT prophylaxis. Monitor patient for signs of bleeding. (14) Low hemoglobin Current Visit: Yes Status: Acute Assessment and plan: Low Hgb of 11.1 on admission. Previously 12.3 on 08/21/17. Patient denies unusual bleeding or black stool. Monitor H&H in a.m. labs and pt. for signs of bleeding d/t Xarelto. - Time Spent With Patient Total time spent is greater than 50% in coordination of care (as documented) at patient's floor/unit and/or counseling patient: Greater than 35 minutes <Lucho Coreas P - Last Filed: 10/26/17 21:44> Date of Encounter: 10/26/17 Internal Medicine - H&P: HPI History of present illness: Ms. Sanders is a 82 year old female All Systems PM: A 10-system review of systems was performed and is negative for pertinent findings except as documented above in the HPI. - Constitutional Vitals: Temp Pulse Resp BP Pulse Ox 98.3 F 77 17 99/59 94 10/26/17 20:00 10/26/17 20:00 10/26/17 20:00 10/26/17 21:24 10/26/17 20:00 Internal Med - H&P Results - Labs CBC & Chem 7: 10/26/17 12:11 10/26/17 12:11 Labs: Cardiac Enzymes 10/26/17 Range/Units 18:25 Troponin I 0.10 H* (< 0.04) ng/mL - Attending Attestation I examined this patient and my medical decision-making was reviewed with the Resident Physician. I agree with the documented findings, disposition and treatment plan as described except to the extent set forth below. agree with above - Assessment and plan (1) Hypoxia Current Visit: Yes Status: Acute (2) Skin lesion of right lower extremity Current Visit: Yes Status: Acute (3) COPD exacerbation Current Visit: Yes Status: Acute (4) CKD (chronic kidney disease) stage 3, GFR 30-59 ml/min Current Visit: Yes Status: Chronic (5) Bronchitis Current Visit: Yes Status: Acute (6) CHF exacerbation Current Visit: Yes Status: Acute Qualifiers: Heart failure type: unspecified Qualified Code(s): I50.9 - Heart failure, unspecified (7) Asthma Current Visit: Yes Status: Chronic Qualifiers: Asthma severity: unspecified severity Asthma persistence: unspecified Asthma complication type: unspecified Qualified Code(s): J45.909 - Unspecified asthma, uncomplicated (8) HLD (hyperlipidemia) Current Visit: Yes Status: Chronic Qualifiers: Hyperlipidemia type: pure hypercholesterolemia Qualified Code(s): E78.00 - Pure hypercholesterolemia, unspecified; E78.0 - Pure hypercholesterolemia (9) HTN (hypertension) Current Visit: Yes Status: Chronic Qualifiers: Hypertension type: essential hypertension Qualified Code(s): I10 - Essential (primary) hypertension (10) DVT prophylaxis Current Visit: Yes Status: Acute (11) Gout Current Visit: Yes Status: Chronic Qualifiers: Gout site: unspecified site Gout etiology: unspecified cause Chronicity: chronic Presence of tophus: without tophus Qualified Code(s): M1A.9XX0 - Chronic gout, unspecified, without tophus (tophi) (12) Diarrhea Current Visit: Yes Status: Acute Qualifiers: Diarrhea type: presumed infectious Qualified Code(s): R19.7 - Diarrhea, unspecified (13) Elevated troponin Current Visit: Yes Status: Acute (14) Low hemoglobin Current Visit: Yes Status: Acute - Time Spent With Patient Total time spent is greater than 50% in coordination of care (as documented) at patient's floor/unit and/or counseling patient:
[2017-10-26] MEDS: Insulin LISPRO 300 UNITS/3 ML VIAL SQ SCH ×2 (18:00→22:24)
[2017-10-26] MEDS: Multivit/Ca/Min/Fe/FA 1 TAB TABLET PO SCH (18:02)
[2017-10-26] MEDS: Furosemide 20 MG TABLET PO SCH (18:40)
[2017-10-26] MEDS: Azithromycin 500 MG in D5% in Water 250 ML IVPB SCH (18:41)
[2017-10-26] MEDS: Ipratropium/Albuterol Neb 3 ML IH SCH ×2 (22:03→23:53)
[2017-10-26] MEDS: *HR* Rivaroxaban 10 MG TABLET PO SCH (22:23)
[2017-10-27] MEDS: methylPREDNISolone 125 MG/2 ML VIAL IVP SCH ×2 (00:35→08:04)
[2017-10-27 01:15] LABS: Basophils % 0.2 %; Hematocrit 31.1 % (35.3-44.9); Hemoglobin 10.1 g/dL (11.5-15.4); Immature Granulocytes % 0.5 % (0-4); Lymphocytes % 15.5 %; Mean Corpuscular HGB Conc 32.5 g/dL (31.6-35.5); Mean Corpuscular Hemoglobin 28.2 pg (28.0-33.3); Mean Corpuscular Volume 86.9 fL (83.0-100.0); Mean Platelet Volume 9.4 fL (9.4-12.4); Monocytes # 0.2 K/mcL (0.0-1.3); Monocytes % 2.8 %; Neutrophils # 5.2 K/mcL (1.6-8.9); Platelet Count 187 K/mcL (140-400); Red Blood Count 3.58 M/mcL (3.82-4.97); Red Cell Distribution Width 15.1 % (11.5-14.5)
[2017-10-27 01:36] LABS: Alanine Aminotransferase 10 Units/L (7-52); Albumin 3.2 g/dL (3.5-5.7); Albumin/Globulin Ratio 0.7 (1.1-2.2); Alkaline Phosphatase 38 Units/L (34-104); Aspartate Amino Transferase 15 Units/L (13-39); BUN/Creatinine Ratio 36 (6-26); Bilirubin,Total 0.3 mg/dL (0.3-1.0); Blood Urea Nitrogen 37 mg/dL (8-23); Calcium 8.6 mg/dL (8.6-10.3); Carbon Dioxide 24 mEq/L (23-29); Chloride 104 mEq/L (98-107); Chol/HDL Ratio 3.3 (0-4.9); Cholesterol 110 mg/dL (< 200); Globulin 4.6 g/dL (2.4-3.5); Glucose 218 mg/dL (70-105); HDL Cholesterol 33 mg/dL (40-59); LDL Cholesterol,Calculated 60 mg/dL (0-99); Magnesium 1.8 mg/dL (1.6-2.6); Osmolality,Calculated 293 (280-300); Potassium 3.7 mEq/L (3.5-5.1); Sodium 134 mEq/L (136-145); Total Protein 7.8 g/dL (6.4-8.9); Triglycerides 84 mg/dL (< 150); eGFR For African Americans > 60 (> 60); eGFR For Non-African Americans 52 (> 60)
[2017-10-27] MEDS: Ipratropium/Albuterol Neb 3 ML IH SCH ×6 (04:05→23:36)
[2017-10-27 04:27] LABS: Adenovirus Not Detected (Not Detect); Bordetella Pertussis Not Detected (Not Detect); Chlamydophila pneumoniae Not Detected (Not Detect); Coronavirus 229E Not Detected (Not Detect); Coronavirus HKU1 Not Detected (Not Detect); Coronavirus NL63 Not Detected (Not Detect); Coronavirus OC43 Not Detected (Not Detect); Human Metapneumovirus Not Detected (Not Detect); Human Rhinovirus/Enterovirus Not Detected (Not Detect); Influenza A Subtype 2009 H1 Not Detected (Not Detect); Influenza A Untypeable Not Detected (Not Detect); Influenza B Not Detected (Not Detect); Mycoplasma pneumoniae Not Detected (Not Detect); Parainfluenza Virus 1 Not Detected (Not Detect); Parainfluenza Virus 2 Not Detected (Not Detect); Parainfluenza Virus 3 Not Detected (Not Detect); Parainfluenza Virus 4 Not Detected (Not Detect); Respiratory Syncytial Virus Not Detected (Not Detect)
[2017-10-27 07:57] LABS: Estimated Average Glucose 143 mg/dl; Hemoglobin A1C 6.6 %
--- NOTE | 2017-10-27 08:02 | Electrocardiograph Report ---
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
[2017-10-27] MEDS: Fluticasone Propionate Nasal 50 MCG/SPRAY BOTTLE NS SCH (08:04)
[2017-10-27] MEDS: Aspirin Enteric Coated 81 MG Tablet PO SCH (08:05)
[2017-10-27] MEDS: Multivit/Ca/Min/Fe/FA 1 TAB TABLET PO SCH (08:05)
[2017-10-27] MEDS: Insulin LISPRO 300 UNITS/3 ML VIAL SQ SCH ×4 (08:05→20:54)
[2017-10-27] MEDS: Cholecalciferol (D-3) 1,000 UNIT TABLET PO SCH (08:05)
[2017-10-27] MEDS: Furosemide 40 MG TABLET PO SCH (08:05)
[2017-10-27] MEDS: BIOFLAVONOID PO SCH (08:07)
[2017-10-27] MEDS: (Cyanocobalamin (Vitamin B-12) [Vitamin B-12] 100 MCG PO SCH (08:07)
[2017-10-27] MEDS: (Febuxostat [Uloric] 40 MG) PO SCH (08:07)
[2017-10-27] MEDS: ASCORBATE CALCIUM PO SCH (08:07)
[2017-10-27] MEDS ORDERED: ATENOLOL PO SCH (09:00)
[2017-10-27] MEDS ORDERED: CHLORTHALIDONE PO SCH (09:00)
[2017-10-27] MEDS ORDERED: [UNRECOGNIZED DRUG - OTHER] PO SCH (09:00)
--- NOTE | 2017-10-27 09:48 | Internal Med Progress Note ---
Date of Encounter: 10/27/17 Time of Encounter: 09:45 - Assessment and plan (1) COPD exacerbation Current Visit: Yes Status: Acute Assessment and plan: Acute exacerbation of COPD. Continue nebs, steroids and antibiotics. (2) Hypoxia Current Visit: Yes Status: Acute Assessment and plan: Acute hypoxia d/t current COPD exacerbation complicated by CHF exacerbation. DuoNebs Q4HR scheduled. Mucinex for cough. Supplemental O2 w/titration and SpO2 monitoring. Will add BiPAP if warranted. (3) Skin lesion of right lower extremity Current Visit: Yes Status: Acute Assessment and plan: Continue azithromycin IV. cellulitis improving (4) CKD (chronic kidney disease) stage 3, GFR 30-59 ml/min Current Visit: Yes Status: Chronic Assessment and plan: Hx of CKD, currently stage III w/GFR of 39 and creatinine of 1.30. Will use IV fluids judiciously if warranted d/t current renal dysfunction and CHF exacerbation. Monitor I&O. Avoid nephrotoxins. (5) Bronchitis Current Visit: Yes Status: Acute Assessment and plan: Acute bronchitis w/COPD exacerbation. WBC 11.5. Worsening cough w/white sputum production. IVPB azithromycin for infection coverage. Respiratory infection panel ordered. Blood cultures 2. Will adjust abx coverage based on culture/ panel results. (6) CHF exacerbation Current Visit: Yes Status: Acute Assessment and plan: Echo showed intermediate diastolic dysfunction. continue gentle diuresis Qualifiers: Heart failure type: diastolic Qualified Code(s): I50.33 - Acute on chronic diastolic (congestive) heart failure (7) Asthma Current Visit: Yes Status: Chronic Assessment and plan: Hx of chronic asthma. Pt. denies use of inhaler but reports using DuoNebs @ home Q6HR. DuoNebs Q4HR scheduled. Supplemental O2 w/titration and SpO2 monitoring. Qualifiers: Asthma severity: unspecified severity Asthma persistence: unspecified Asthma complication type: unspecified Qualified Code(s): J45.909 - Unspecified asthma, uncomplicated (8) HLD (hyperlipidemia) Current Visit: Yes Status: Chronic Assessment and plan: Hx of chronic HLD. Lipid panel in a.m. labs. Continue pts. Zocor. Qualifiers: Hyperlipidemia type: pure hypercholesterolemia Qualified Code(s): E78.00 - Pure hypercholesterolemia, unspecified; E78.0 - Pure hypercholesterolemia (9) HTN (hypertension) Current Visit: Yes Status: Chronic Assessment and plan: Hx of chronic HTN. Monitor pt. and VS. Continue pts. Atenolol and Cozaar. Qualifiers: Hypertension type: essential hypertension Qualified Code(s): I10 - Essential (primary) hypertension (10) DVT prophylaxis Current Visit: Yes Status: Acute Assessment and plan: Continue patient's Xarelto for DVT prophylaxis. Monitor patient for signs of bleeding. (11) Gout Current Visit: Yes Status: Chronic Assessment and plan: Hx of chronic gout. Continue pts. Uloric. Qualifiers: Gout site: unspecified site Gout etiology: unspecified cause Chronicity: chronic Presence of tophus: without tophus Qualified Code(s): M1A.9XX0 - Chronic gout, unspecified, without tophus (tophi) (12) Diarrhea Current Visit: Yes Status: Acute Assessment and plan: Acute watery diarrhea for the past several days. Was hospitalized at [facility] and placed on IV abx for cellulitis. C. difficile toxin and contact precautions until resulted. Imodium if warranted. Monitor I&O. Qualifiers: Diarrhea type: presumed infectious Qualified Code(s): R19.7 - Diarrhea, unspecified (13) Elevated troponin Current Visit: Yes Status: Acute - Time Spent With Patient Total time spent is greater than 50% in coordination of care (as documented) at patient's floor/unit and/or counseling patient: - Subjective Interval history: No acute events overnight - Constitutional Vitals: Temp Pulse Resp BP Pulse Ox 97.8 F 58 16 113/64 97 10/27/17 07:19 10/27/17 07:19 10/27/17 07:37 10/27/17 07:19 10/27/17 07:37 General appearance: Present: cooperative, mild distress (Respiratory), A&O X 3, pleasant, obese, answers questions appropriately - Head Head exam: Present: atraumatic, normocephalic - Eye Eye exam: Present: PERRL, conjuntiva pink, sclera anicteric Pupils: Present: PERRL - Neck Neck exam general surgery: Present: supple, trachea midline. Absent: lymphadenopathy - Respiratory Respiratory exam: Present: CTAB. Absent: accessory muscle use, rales, rhonchi, wheezes - Cardiovascular Cardiovascular exam: Present: RRR, +S1, +S2. Absent: diastolic murmur, gallop, rubs, systolic murmur - GI/Abdominal GI/Abdominal exam: Present: normal bowel sounds, soft, no peritoneal signs. Absent: distended, tenderness - Extremities Exam Extremities exam: Present: warm, radial pulses palpable and symmetrical. Absent : calf tenderness, cyanotic, pedal edema - Neurological Exam Neurological exam: Present: CN II-XII intact, oriented X3, no focal deficits. Absent: pronater drift, facial droop, speech deficit - Skin Skin exam: Present: dry, intact Internal Medicine: Result - Labs CBC & Chem 7: 10/27/17 00:52 10/27/17 00:52 Labs: Short CBC 10/27/17 Range/Units 00:52 WBC 6.4 (4.3-11.1) K/mcL Hgb 10.1 L (11.5-15.4) g/dL Hct 31.1 L (35.3-44.9) % Plt Count 187 (140-400) K/mcL Neutrophils # 5.2 (1.6-8.9) K/mcL BMP 10/27/17 00:52 Sodium 134 L Potassium 3.7 Chloride 104 Carbon Dioxide 24 BUN 37 H Creatinine 1.02 Glucose 218 H Calcium 8.6 Cardiac Enzymes 10/26/17 10/27/17 Range/Units 18:25 00:52 Troponin I 0.10 H* 0.06 H* (< 0.04) ng/mL Liver Function 10/27/17 Range/Units 00:52 Total Bilirubin 0.3 (0.3-1.0) mg/dL AST 15 (13-39) Units/L ALT 10 (7-52) Units/L Alkaline Phosphatase 38 (34-104) Units/L Albumin 3.2 L (3.5-5.7) g/dL - Impressions Impressions Echocardiogram 10/26/17 16:32 Impressions: LVEF 60-65%. Mild pulmonary hypertension. No significant valvular dysfunction. Indeterminate diastolic dysfunction, no evidence of severe dysfunction Left Ventricular Wall Motion: Rest Echo Findings All wall segments showed normal motion. Findings: Study Quality * Technically adequate exam. Right Ventricle * Normal right ventricular structure and function. Left Atrium * Normal left atrial size. Right Atrium * Normal right atrial size. Aortic Valve * Trileaflet aortic valve with normal function. Mitral Valve * Normal mitral valve structure and function. Interatrial Septum * No evidence of PFO by color Doppler. Aorta * Normally sized aortic root. Pericardium * The pericardium appears normal. * There is a trivial pericardial effusion present. ECG Findings * Normal sinus rhythm. Pulmonic Valve * No pulmonic stenosis. * Mild pulmonic regurgitation. Tricuspid Valve * No tricuspid stenosis. * Trace tricuspid regurgitation. * Estimated RVSP is 40 mmHg. * Mild pulmonary hypertension. * Estimated RA pressure is 0-5 mmHg. Left Ventricle * LVEF 60-65%. * Indeterminate diastolic function. Consult Discharge Plan - Plan Referrals: Hawa Patterson MD [Primary Care Provider] -
--- NOTE | 2017-10-27 10:51 | Cardiology Consult Note ---
Date of Encounter: 10/27/17 Time of Encounter: 10:49 Assessment and Plan (1) CHF exacerbation Current Visit: Yes Status: Acute Acute onset of dyspnea Sunday, now improved. Also diagnosed with COPD exacerbation and possible allergic reaction to antibiotic, likely contributing to her dyspnea. TTE LVEF 60-65%. Mild pulmonary hypertension. No significant valvular dysfunction. Indeterminate diastolic dysfunction, no evidence of severe dysfunction. BNP 306. CXR new small bilateral pleural effusions. Currently on PO Lasix. Pt euvolemic on exam. Strict I/Os, Na and fluid restriction, daily weights. Anticipate sign off once seen and evaluated by Dr. Jacome. Qualifiers: Heart failure type: diastolic Qualified Code(s): I50.33 - Acute on chronic diastolic (congestive) heart failure (2) Elevated troponin Current Visit: Yes Status: Acute Troponin 0.12, 0.10, 0.06, downtrending and in setting of COPD exacerbation and hypoxia, likely demand ischemia, nondiagnostic for ACS. Pt denies chest pain. EKG unchanged from prior. TTE EF preserved. No further cardiac testing warranted as inpt. Discussion w patient/family: The assessment and plan as outlined above was discussed with the patient and/or family members who expressed understanding and agreement. All questions were answered. Thank you for involving us in the care of your patient. Please call with any questions. I will discuss all the above with Dr. Jacome and make changes as necessary. History of Present Illness Consult date: 10/27/17 Requesting physician: Lucho Coreas Consult reason: elevated troponin, CHF Chief complaint: dyspnea History of present illness: Ms. 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 Patient was recently admitted within 1 week to [facility] for cellulitis of RLE for 3 weeks and discharged on Augmentin. Patient took several doses and began to experience shortness of breath, cough, and feeling of allergic reaction. Patient has extensive abx allergies. Troponin 0.12, 0.10, 0.06. Pt since diagnosed with COPD exacerbation. CXR small bilateral pleural effusions, BNP 306. Pt reports feeling much better, dyspnea has improved. She denies ever having LE edema, denies chest pain. Echo resulted--LVEF 60-65%. Mild pulmonary hypertension. No significant valvular dysfunction. Indeterminate diastolic dysfunction, no evidence of severe dysfunction. Past Med Surg Social Fam HX - Past Medical History Medical history: asthma, COPD, hyperlipidemia, hypertension Psychiatric history: no psych history - Past Surgical History Surgical History: knee replacement, IVC filter - Social History Smoking Status: Never smoker Smokeless Tobacco Status: No Alcohol use: none Drug use: none - Family History Father Race: Family Member Ethnicity: Non- Age at : 53 Cause of : Leukemia Hx Family Cancer: Yes (Leukemia) Mother Race: Family Member Ethnicity: Non- Living Status: Age at : 67 Cause of : Lung cancer Hx Family Cancer: Yes (Lung) Brother Race: Family Member Ethnicity: Non- Living Status: Age at : 54 Cause of : Lung cancer Hx Family Respiratory Disorders: Yes (COPD/Emphysema) Hx Family Cancer: Yes (Lung) Sister Race: Family Member Ethnicity: Non- Living Status: Still Living Hx Family Respiratory Disorders: Yes (COPD/Emphysema) Hx Family Cancer: Yes (Lung) Medications and Allergies Ascorbate Calcium/Bioflavonoid [Shruthi-C 500 mg Tablet] 1 each PO DAILY 01/29/17 [History] Aspirin [Lo-Dose Aspirin EC] 81 mg PO DAILY 01/29/17 [History] Atenolol/Chlorthalidone [Tenoretic 50 Tablet] 1 each PO DAILY 01/29/17 [History] Ergocalciferol (VITAMIN D2) [Vitamin D2] 2,000 unit PO DAILY 01/29/17 [History] Febuxostat [Uloric] 40 mg PO DAILY 01/29/17 [History] Furosemide [Lasix] 20 mg PO QPM 01/29/17 [History] Furosemide [Lasix] 40 mg PO QAM 01/29/17 [History] Losartan Potassium [Cozaar] 25 mg PO DAILY 01/29/17 [History] Montelukast [Singulair] 10 mg PO DAILY 01/29/17 [History] Multivitamin [Multivitamins] 1 each PO AD 01/29/17 [History] [place]-3/Dha/Epa/Fish Oil [Fish Oil 1,000 mg Softgel] 1 each PO BID 01/29/17 [ History] Potassium Chloride [K-Tab ER] 20 meq PO TID 01/29/17 [History] Simvastatin [Zocor] 20 mg PO HS 01/29/17 [History] Vitamin E (Dl,Tocopheryl Acet) [Vitamin E] 400 unit PO DAILY 01/29/17 [History] Fluticasone Propionate Nasal [Flonase] 1 spray IN DAILY 05/18/17 [History] Ipratropium/Albuterol Neb [Duoneb] 3 ml IH Q6HR 08/21/17 [History] Nitrofurantoin Macrocrystal [Nitrofurantoin] 100 mg PO DAILY 08/21/17 [History] Pentoxifylline [TRENtal] 400 mg PO DAILY 08/21/17 [History] Rivaroxaban [Xarelto] 20 mg PO DAILY 08/21/17 [History] Cyanocobalamin (Vitamin B-12) [Vitamin B-12] 100 mcg PO DAILY 10/26/17 [History] 3 Allergy/AdvReac Type Severity Reaction Status Date / Time cefuroxime Allergy Rash Verified 10/26/17 11:49 cephalexin [From Keflex] Allergy Rash Verified 10/26/17 11:49 doxycycline Allergy Rash Verified 10/26/17 11:49 gabapentin Allergy Rash Verified 10/26/17 13:25 levofloxacin [From Levaquin] Allergy Rash Verified 10/26/17 13:25 Penicillins [PCN] Allergy Rash Verified 10/26/17 11:49 Sulfa (Sulfonamide Allergy Rash Verified 10/26/17 11:49 Antibiotics) All Systems Review: The remainder of the systems were reviewed and are negative - Cardiovascular Cardiovascular: as per HPI, dyspnea at rest, dyspnea on exertion - Respiratory Respiratory: dyspnea Physical Examination Vital Signs, Last 4 Hours Temp Pulse Resp BP Pulse Ox 10/27/17 07:37 16 97 10/27/17 07:19 97.8 F 58 18 113/64 98 Vital Signs Temp Pulse Resp BP Pulse Ox 10/27/17 07:37 16 97 10/27/17 07:19 97.8 F 58 18 113/64 98 10/27/17 04:05 18 98 10/27/17 03:00 98.5 F 63 17 106/62 96 10/26/17 23:54 19 97 10/26/17 23:34 66 18 107/56 94 10/26/17 21:24 99/59 10/26/17 20:00 98.3 F 77 17 106/61 94 10/26/17 18:55 91 10/26/17 17:07 98 F 87 17 111/60 94 10/26/17 16:33 18 100/62 10/26/17 16:26 90 18 97/60 94 10/26/17 15:03 18 98 10/26/17 14:59 70 18 84/50 97 10/26/17 13:59 75 18 103/64 94 10/26/17 12:45 74 18 92/62 96 10/26/17 12:18 75 18 87/65 95 10/26/17 12:01 94 10/26/17 11:54 98.3 F 78 16 103/62 93 10/26/17 11:47 98.3 F 78 16 77/53 93 Intake and Output 10/26/17 10/27/17 10/27/17 23:59 07:59 15:59 Intake Total 240 / 240 0 / 0 Output Total 0 / 0 450 / 450 Balance 240 / 240 -450 / -450 Intake: Oral 240 / 240 0 / 0 Output: Urine 0 / 0 450 / 450 Other: Meal Dinner Percent of Meal Consumed 50% Stool Size Moderate Stool Consistency soft Stool Characteristics Seedy Pasty Stool Color Brown # Voids 1 # Bowel Movements 1 Weight 81.3 kg Blood Glucose* 327 167 Patient Weight 10/27/17 23:59 Weight 81.3 kg General: Conversant, No Apparent Distress HEENT: Atraumatic, Normocephaly, Mucus Membranes Moist Neck: No JVD, Normal carotid pulses Cardiac: Reg Rate and Rhythm, Normal S1 and S2, No Murmur Lungs: Other (diminished) Neuro: Alert and responsive, No focal deficits noted Abdomen: Soft, Non-Tender Skin: No rashes noted on visualized skin Musculoskeletal: No Chest Wall Tenderness Extremities: No Clubbing, No Cyanosis, No Edema, Normal Pulses Results 10/27/17 00:52 10/27/17 00:52 Lab Results 10/26/17 10/27/17 10/27/17 18:25 00:52 00:52 WBC 6.4 Hgb 10.1 L Hct 31.1 L Plt Count 187 Sodium Potassium Chloride Carbon Dioxide BUN Creatinine Glucose Calcium Magnesium Total Bilirubin AST ALT Alkaline Phosphatase Troponin I 0.10 H* 0.06 H* 10/27/17 00:52 WBC Hgb Hct Plt Count Sodium 134 L Potassium 3.7 Chloride 104 Carbon Dioxide 24 BUN 37 H Creatinine 1.02 Glucose 218 H Calcium 8.6 Magnesium 1.8 Total Bilirubin 0.3 AST 15 ALT 10 Alkaline Phosphatase 38 Troponin I Short CBC 10/27/17 10/26/17 Range/Units 00:52 12:11 WBC 6.4 11.5 H (4.3-11.1) K/mcL Hgb 10.1 L 11.1 L (11.5-15.4) g/dL Hct 31.1 L 32.8 L (35.3-44.9) % Plt Count 187 214 (140-400) K/mcL Neutrophils # 5.2 8.4 (1.6-8.9) K/mcL BMP 10/27/17 10/26/17 Range/Units 00:52 12:11 Sodium 134 L 135 L (136-145) mEq/L Potassium 3.7 3.9 (3.5-5.1) mEq/L Chloride 104 103 (98-107) mEq/L Carbon Dioxide 24 25 (23-29) mEq/L BUN 37 H 40 H (8-23) mg/dL Creatinine 1.02 1.30 H (0.60-1.20) mg/dL Glucose 218 H 134 H (70-105) mg/dL Calcium 8.6 8.9 (8.6-10.3) mg/dL Cardiac Enzymes 10/27/17 10/26/17 10/26/17 Range/Units 00:52 18:25 12:11 Troponin I 0.06 H* 0.10 H* 0.12 H* (< 0.04) ng/mL Liver Function 10/27/17 Range/Units 00:52 Total Bilirubin 0.3 (0.3-1.0) mg/dL AST 15 (13-39) Units/L ALT 10 (7-52) Units/L Alkaline Phosphatase 38 (34-104) Units/L Albumin 3.2 L (3.5-5.7) g/dL Impressions Chest X-Ray 10/26/17 11:59 IMPRESSION: 1. New small bilateral pleural effusions. D/ / Missael Wilder MD / Missael Wilder MD Interpreting Provider: Missael Wilder MD Chest CT 10/26/17 12:10 IMPRESSION: Trace pericardial effusion and left pleural effusion. Bibasilar atelectasis and scarring. No overt pulmonary edema. D/ / 10/26/2017 13:50:10 Venkat Paredes MD / ponce Interpreting Provider: Venkat Paredes MD Pulmonary Perfusion Imaging 10/26/17 12:57 IMPRESSION: 1. Low probability for pulmonary embolism. 2. Clumped activity in the central airways could be related to poor inspiratory effort and/or airways disease. D/ / Johnnie Maya MD / Johnnie Maya MD Interpreting Provider: Johnnie Maya MD Echocardiogram 10/26/17 16:32 Impressions: LVEF 60-65%. Mild pulmonary hypertension. No significant valvular dysfunction. Indeterminate diastolic dysfunction, no evidence of severe dysfunction Left Ventricular Wall Motion: Rest Echo Findings All wall segments showed normal motion. Findings: Study Quality * Technically adequate exam. Right Ventricle * Normal right ventricular structure and function. Left Atrium * Normal left atrial size. Right Atrium * Normal right atrial size. Aortic Valve * Trileaflet aortic valve with normal function. Mitral Valve * Normal mitral valve structure and function. Interatrial Septum * No evidence of PFO by color Doppler. Aorta * Normally sized aortic root. Pericardium * The pericardium appears normal. * There is a trivial pericardial effusion present. ECG Findings * Normal sinus rhythm. Pulmonic Valve * No pulmonic stenosis. * Mild pulmonic regurgitation. Tricuspid Valve * No tricuspid stenosis. * Trace tricuspid regurgitation. * Estimated RVSP is 40 mmHg. * Mild pulmonary hypertension. * Estimated RA pressure is 0-5 mmHg. Left Ventricle * LVEF 60-65%. * Indeterminate diastolic function. Active Medications Acetaminophen (Tylenol) 650 mg PO Q6HR PRN PRN Reason: Mild Pain Stop: 04/27/18 16:25 Albuterol/Ipratropium (Duoneb) 3 ml IH [id number] [facility] Stop: 04/27/18 20:01 Last Admin: 10/27/17 07:37 Dose: 3 ml Aspirin (Aspirin Ec) 81 mg PO DAILY [facility] Stop: 04/28/18 09:01 Last Admin: 10/27/17 08:05 Dose: 81 mg Atenolol (Tenormin) 50 mg PO DAILY [facility] Stop: 04/28/18 09:01 Last Admin: 10/27/17 08:06 Dose: 50 mg Chlorthalidone (Chlorthalidone) 25 mg PO DAILY [facility] Stop: 04/28/18 09:01 Last Admin: 10/27/17 08:06 Dose: 25 mg Dextrose/Water (Dextrose 50% (Syg)) 25 ml IVP AD PRN PRN Reason: Hypoglycemia Stop: 04/27/18 16:28 Fluticasone Propionate (Flonase) 50 mcg NS DAILY [facility] PRN Reason: Protocol Stop: 04/28/18 09:01 Last Admin: 10/27/17 08:04 Dose: 50 mcg Furosemide (Lasix) 20 mg PO QPM [facility] Stop: 04/27/18 18:01 Last Admin: 10/26/17 18:40 Dose: 20 mg Furosemide (Lasix) 40 mg PO QAM [facility] Stop: 04/28/18 09:01 Last Admin: 10/27/17 08:05 Dose: 40 mg Glucagon (Glucagen) 1 mg IM ONCE PRN PRN Reason: Hypoglycemia Stop: 04/27/18 16:28 Glucose (Gluctose) 15 gm PO ONCE PRN PRN Reason: Hypoglycemia Stop: 04/27/18 16:28 Glucose (Gluctose) 30 gm PO ONCE PRN PRN Reason: Hypoglycemia Stop: 04/27/18 16:28 Guaifenesin (Mucinex) 600 mg PO BID [facility] Stop: 04/27/18 21:01 Last Admin: 10/27/17 08:05 Dose: 600 mg Azithromycin 500 mg/ Dextrose 250 mls @ 252 mls/hr IVPB Q24H [facility] Stop: 04/27/18 17:01 Last Admin: 10/26/17 18:41 Dose: 252 mls/hr Dextrose (Dextrose 5%) 1,000 mls @ 100 mls/hr IVC .Q10H PRN PRN Reason: HYPOGLYCEMIA Stop: 04/27/18 16:28 Insulin Human Lispro (Humalog) 0 units SQ TIDAC [facility] PRN Reason: Protocol Stop: 04/27/18 16:31 Last Admin: 10/27/17 08:05 Dose: 2 units Insulin Human Lispro (Humalog) 0 units SQ HS [facility] PRN Reason: Protocol Stop: 04/27/18 21:01 Last Admin: 10/26/17 22:24 Dose: 5 units Losartan Potassium (Cozaar) 25 mg PO DAILY [facility] Stop: 04/28/18 09:01 Last Admin: 10/27/17 08:05 Dose: 25 mg Montelukast Sodium (Singulair) 10 mg PO DAILY [facility] Stop: 04/28/18 09:01 Last Admin: 10/27/17 08:05 Dose: 10 mg Multivitamins/Calcium (Thera M Plus) 1 tab PO DAILY [facility] Stop: 04/27/18 16:31 Last Admin: 10/27/17 08:05 Dose: 1 tab Naloxone HCl (Narcan) 0.4 mg IVP Q2MIN PRN PRN Reason: SEE COMMENTS Stop: 04/27/18 16:14 Nitrofurantoin Macrocrystals (Macrodantin) 100 mg PO DAILY [facility] Stop: 04/28/18 09:01 Last Admin: 10/27/17 08:06 Dose: 100 mg Pentoxifylline (Trental) 400 mg PO DAILY [facility] Stop: 04/28/18 09:01 Last Admin: 10/27/17 08:05 Dose: 400 mg Pharmacy Profile Note (Patient Taking Own Medication) 0 each PO DAILY [facility] Stop: 04/28/18 09:01 Last Admin: 10/27/17 08:07 Dose: Not Given Pharmacy Profile Note (Patient Taking Own Medication) 0 each PO DAILY [facility] Stop: 04/28/18 09:01 Last Admin: 10/27/17 08:07 Dose: Not Given Pharmacy Profile Note (Patient Taking Own Medication) 0 each PO DAILY [facility] Stop: 04/28/18 09:01 Last Admin: 10/27/17 08:07 Dose: Not Given Potassium Chloride (Potassium Chloride) 20 meq PO TID [facility] Stop: 04/27/18 21:01 Last Admin: 10/27/17 08:06 Dose: 20 meq Prednisone (Prednisone) 40 mg PO DAILY [facility] Stop: 04/29/18 09:01 Rivaroxaban (Xarelto) 20 mg PO HS [facility] Stop: 04/27/18 21:01 Last Admin: 10/26/17 22:23 Dose: 20 mg Simvastatin (Zocor) 20 mg PO HS [facility] PRN Reason: Protocol Stop: 04/27/18 21:01 Last Admin: 10/26/17 22:23 Dose: 20 mg Vitamin D (Vitamin D) 1,000 unit PO DAILY [facility] Stop: 04/28/18 09:01 Last Admin: 10/27/17 08:05 Dose: 1,000 unit - Imaging and Cardiology Echo: report reviewed (SR, unchanged from prior) - EKG Interpretation EKG results cardiology: other (12 hr tele AVG HR 70, SR) Consult Discharge Plan - Plan Referrals: Hawa Patterson MD [Primary Care Provider] -
[2017-10-27] MEDS: Azithromycin 500 MG in D5% in Water 250 ML IVPB SCH (17:21)
[2017-10-27] MEDS: Furosemide 20 MG TABLET PO SCH (17:22)
[2017-10-27] MEDS: *HR* Rivaroxaban 10 MG TABLET PO SCH (20:47)
[2017-10-28] MEDS: Ipratropium/Albuterol Neb 3 ML IH SCH ×3 (03:45→11:22)
[2017-10-28 04:56] LABS: Basophils % 0.1 %; Hematocrit 30.6 % (35.3-44.9); Hemoglobin 10.3 g/dL (11.5-15.4); Immature Granulocytes % 0.8 % (0-4); Lymphocytes % 7.7 %; Mean Corpuscular HGB Conc 33.7 g/dL (31.6-35.5); Mean Corpuscular Hemoglobin 29.2 pg (28.0-33.3); Mean Corpuscular Volume 86.7 fL (83.0-100.0); Mean Platelet Volume 9.6 fL (9.4-12.4); Monocytes # 0.5 K/mcL (0.0-1.3); Monocytes % 4.1 %; Neutrophils # 11.1 K/mcL (1.6-8.9); Nucleated Red Blood Cells 0.2 /100 WBC (0); Platelet Count 222 K/mcL (140-400); Red Blood Count 3.53 M/mcL (3.82-4.97); Red Cell Distribution Width 14.8 % (11.5-14.5); Segmented Neutrophils % 87.3 %
[2017-10-28 05:23] LABS: Alanine Aminotransferase 11 Units/L (7-52); Albumin 3.3 g/dL (3.5-5.7); Albumin/Globulin Ratio 0.7 (1.1-2.2); Alkaline Phosphatase 37 Units/L (34-104); Aspartate Amino Transferase 17 Units/L (13-39); BUN/Creatinine Ratio 58 (6-26); Bilirubin,Total 0.2 mg/dL (0.3-1.0); Blood Urea Nitrogen 45 mg/dL (8-23); Calcium 9.1 mg/dL (8.6-10.3); Carbon Dioxide 25 mEq/L (23-29); Chloride 105 mEq/L (98-107); Globulin 4.5 g/dL (2.4-3.5); Glucose 172 mg/dL (70-105); Osmolality,Calculated 300 (280-300); Potassium 3.5 mEq/L (3.5-5.1); Sodium 137 mEq/L (136-145); Total Protein 7.8 g/dL (6.4-8.9); eGFR For African Americans > 60 (> 60); eGFR For Non-African Americans > 60 (> 60)
[2017-10-28 07:29] VITALS: BP 119/66
[2017-10-28] MEDS: Aspirin Enteric Coated 81 MG Tablet PO SCH (08:37)
[2017-10-28] MEDS: Multivit/Ca/Min/Fe/FA 1 TAB TABLET PO SCH (08:37)
[2017-10-28] MEDS: Furosemide 40 MG TABLET PO SCH (08:37)
[2017-10-28] MEDS: Cholecalciferol (D-3) 1,000 UNIT TABLET PO SCH (08:37)
[2017-10-28] MEDS: Insulin LISPRO 300 UNITS/3 ML VIAL SQ SCH ×2 (08:38→13:43)
[2017-10-28] MEDS: BIOFLAVONOID PO SCH (08:39)
[2017-10-28] MEDS: ASCORBATE CALCIUM PO SCH (08:39)
[2017-10-28] MEDS: (Febuxostat [Uloric] 40 MG) PO SCH (08:39)
[2017-10-28] MEDS: Fluticasone Propionate Nasal 50 MCG/SPRAY BOTTLE NS SCH (08:39)
[2017-10-28] MEDS: (Cyanocobalamin (Vitamin B-12) [Vitamin B-12] 100 MCG PO SCH (08:39)
[2017-10-28] MEDS ORDERED: predniSONE 20 MG TABLET PO SCH (09:00)
--- NOTE | 2017-10-28 09:07 | Discharge Summary ---
Date of Encounter: 10/28/17 Time of Encounter: 09:00 - Discharge Diagnosis (1) COPD exacerbation Priority: Primary Status: Acute Assessment and Plan: 70 year old female with pmh of COPD admitted with shortness of breath and assessed with acute exacerbation of COPD and acut ehypoxic respiratory failure. She was started on nebs, IV steroids and antibiotics. Her steroids were tapered to po with resolution of her SOB. She was discharged on a short course of steroids and antibiotics. She was also managed for acute diastolic CHF exacerbation and recieved IV diuresis with improvement in her symptoms. With a sooner than anticipated recovery, she was discharged home (2) Hypoxia Priority: Secondary Status: Acute Assessment and Plan: Acute hypoxia d/t current COPD exacerbation complicated by CHF exacerbation. DuoNebs Q4HR scheduled. Mucinex for cough. Supplemental O2 w/titration and SpO2 monitoring. Will add BiPAP if warranted. (3) Skin lesion of right lower extremity Priority: Secondary Status: Acute Assessment and Plan: Continue azithromycin IV. cellulitis improving (4) CKD (chronic kidney disease) stage 3, GFR 30-59 ml/min Priority: Secondary Status: Chronic Assessment and Plan: Hx of CKD, currently stage III w/GFR of 39 and creatinine of 1.30. Will use IV fluids judiciously if warranted d/t current renal dysfunction and CHF exacerbation. Monitor I&O. Avoid nephrotoxins. (5) Bronchitis Priority: Secondary Status: Acute Assessment and Plan: Acute bronchitis w/COPD exacerbation. WBC 11.5. Worsening cough w/white sputum production. IVPB azithromycin for infection coverage. Respiratory infection panel ordered. Blood cultures 2. Will adjust abx coverage based on culture/ panel results. (6) CHF exacerbation Priority: Secondary Status: Acute Assessment and Plan: Echo showed intermediate diastolic dysfunction. continue gentle diuresis Qualifiers: Heart failure type: diastolic Qualified Code(s): I50.33 - Acute on chronic diastolic (congestive) heart failure (7) Asthma Priority: Secondary Status: Chronic Assessment and Plan: Hx of chronic asthma. Pt. denies use of inhaler but reports using DuoNebs @ home Q6HR. DuoNebs Q4HR scheduled. Supplemental O2 w/titration and SpO2 monitoring. Qualifiers: Asthma severity: unspecified severity Asthma persistence: unspecified Asthma complication type: unspecified Qualified Code(s): J45.909 - Unspecified asthma, uncomplicated (8) HLD (hyperlipidemia) Priority: Secondary Status: Chronic Assessment and Plan: Hx of chronic HLD. Lipid panel in a.m. labs. Continue pts. Zocor. Qualifiers: Hyperlipidemia type: pure hypercholesterolemia Qualified Code(s): E78.00 - Pure hypercholesterolemia, unspecified; E78.0 - Pure hypercholesterolemia (9) HTN (hypertension) Priority: Primary Status: Chronic Assessment and Plan: Hx of chronic HTN. Monitor pt. and VS. Continue pts. Atenolol and Cozaar. Qualifiers: Hypertension type: essential hypertension Qualified Code(s): I10 - Essential (primary) hypertension (10) DVT prophylaxis Priority: Secondary Status: Acute Assessment and Plan: Continue patient's Xarelto for DVT prophylaxis. Monitor patient for signs of bleeding. (11) Gout Priority: Secondary Status: Chronic Assessment and Plan: Hx of chronic gout. Continue pts. Uloric. Qualifiers: Gout site: unspecified site Gout etiology: unspecified cause Chronicity: chronic Presence of tophus: without tophus Qualified Code(s): M1A.9XX0 - Chronic gout, unspecified, without tophus (tophi) (12) Diarrhea Priority: Secondary Status: Acute Assessment and Plan: Acute watery diarrhea for the past several days. Was hospitalized at [facility] and placed on IV abx for cellulitis. C. difficile toxin and contact precautions until resulted. Imodium if warranted. Monitor I&O. Qualifiers: Diarrhea type: presumed infectious Qualified Code(s): R19.7 - Diarrhea, unspecified (13) Elevated troponin Priority: Secondary Status: Acute Assessment and Plan: Acutely elevated troponin of 0.12 on admission. Most likely reactive to current COPD/CHF exacerbations complicated by bronchitis. Pt. reports CP w/coughing. Will trend. Cardiology consult ordered in ED. Continuous cardiac telemetry. Hospital course: Ms. Sanders is a 82 year old female - Time Spent with Patient Total time spent providing and/or coordinating discharge services: - Discharge Medications Prescriptions: Azithromycin [Azithromycin 6-Tab Pack] 250 mg PO PER PKG DI #6 tab GuaiFENesin ER [Mucinex] 600 mg PO BID #10 tbbp.12hr predniSONE [PredniSONE] 40 mg PO DAILY #5 tablet Home Medications: Ascorbate Calcium/Bioflavonoid [Shruthi-C 500 mg Tablet] 1 each PO DAILY 01/29/17 [History] Aspirin [Lo-Dose Aspirin EC] 81 mg PO DAILY 01/29/17 [History] Atenolol/Chlorthalidone [Tenoretic 50 Tablet] 1 each PO DAILY 01/29/17 [History] Ergocalciferol (VITAMIN D2) [Vitamin D2] 2,000 unit PO DAILY 01/29/17 [History] Febuxostat [Uloric] 40 mg PO DAILY 01/29/17 [History] Furosemide [Lasix] 20 mg PO QPM 01/29/17 [History] Furosemide [Lasix] 40 mg PO QAM 01/29/17 [History] Losartan Potassium [Cozaar] 25 mg PO DAILY 01/29/17 [History] Montelukast [Singulair] 10 mg PO DAILY 01/29/17 [History] Multivitamin [Multivitamins] 1 each PO AD 01/29/17 [History] [place]-3/Dha/Epa/Fish Oil [Fish Oil 1,000 mg Softgel] 1 each PO BID 01/29/17 [ History] Potassium Chloride [K-Tab ER] 20 meq PO TID 01/29/17 [History] Simvastatin [Zocor] 20 mg PO HS 01/29/17 [History] Vitamin E (Dl,Tocopheryl Acet) [Vitamin E] 400 unit PO DAILY 01/29/17 [History] Fluticasone Propionate Nasal [Flonase] 1 spray IN DAILY 05/18/17 [History] Ipratropium/Albuterol Neb [Duoneb] 3 ml IH Q6HR 08/21/17 [History] Nitrofurantoin Macrocrystal [Nitrofurantoin] 100 mg PO DAILY 08/21/17 [History] Pentoxifylline [TRENtal] 400 mg PO DAILY 08/21/17 [History] Rivaroxaban [Xarelto] 20 mg PO DAILY 08/21/17 [History] Cyanocobalamin (Vitamin B-12) [Vitamin B-12] 100 mcg PO DAILY 10/26/17 [History] Azithromycin [Azithromycin 6-Tab Pack] 250 mg PO PER PKG DI #6 tab 10/28/17 [Rx] GuaiFENesin ER [Mucinex] 600 mg PO BID #10 tbbp.12hr 10/28/17 [Rx] predniSONE [PredniSONE] 40 mg PO DAILY #5 tablet 10/28/17 [Rx] Allergies/Adverse Reactions: 3 Allergy/AdvReac Type Severity Reaction Status Date / Time cefuroxime Allergy Rash Verified 10/26/17 11:49 cephalexin [From Keflex] Allergy Rash Verified 10/26/17 11:49 doxycycline Allergy Rash Verified 10/26/17 11:49 gabapentin Allergy Rash Verified 10/26/17 13:25 levofloxacin [From Levaquin] Allergy Rash Verified 10/26/17 13:25 Penicillins [PCN] Allergy Rash Verified 10/26/17 11:49 Sulfa (Sulfonamide Allergy Rash Verified 10/26/17 11:49 Antibiotics) Date of admission: 10/26/17 16:15 Primary care physician: Hawa Patterson Consults: 10/26/17 16:25 Consult to Nutrition [CONS] Routine Comment: [place] Ensure Consulting Provider: NUTRITION Reason for Dietary Consult: PO Supplementation 10/26/17 16:30 Consult to Wound Care [CONS] Routine Reason for Consult: Patient has cellulitis of the RLE that was treated at [facility] w/i past week and not improving. Please recommend daily wound care regimen. Call Completed: No - Constitutional Vitals: Temp Pulse Resp BP Pulse Ox 97.5 F L 68 18 119/66 97 10/28/17 07:25 10/28/17 07:25 10/28/17 07:52 10/28/17 07:25 10/28/17 08:49 General appearance: Present: cooperative, mild distress (Respiratory), A&O X 3, pleasant, obese, answers questions appropriately - Head Head exam: Present: atraumatic, normocephalic - Eye Eye exam: Present: PERRL, conjuntiva pink, sclera anicteric Pupils: Present: PERRL - Neck Neck exam general surgery: Present: supple, trachea midline. Absent: lymphadenopathy - Respiratory Respiratory exam: Present: CTAB. Absent: accessory muscle use, rales, rhonchi, wheezes - Cardiovascular Cardiovascular exam: Present: RRR, +S1, +S2. Absent: diastolic murmur, gallop, rubs, systolic murmur - GI/Abdominal GI/Abdominal exam: Present: normal bowel sounds, soft, no peritoneal signs. Absent: distended, tenderness - Extremities Exam Extremities exam: Present: warm, radial pulses palpable and symmetrical. Absent : calf tenderness, cyanotic, pedal edema - Neurological Exam Neurological exam: Present: CN II-XII intact, oriented X3, no focal deficits. Absent: pronater drift, facial droop, speech deficit - Skin Skin exam: Present: dry, intact - Patient Status Disposition: Home, Self-Care Condition: Good - Discharge Instructions Follow Up With: Hawa Patterson MD [Primary Care Provider] -
[2017-10-28] MEDS ORDERED: Benzonatate 100 MG CAPSULE PO PRN (13:52)
--- NOTE | 2017-10-28 13:55 | Physician Discharge Referral ---
Home Health/Hosp Referral Info Transfer to: Home Health - Diagnosis (1) COPD exacerbation Priority: Primary Status: Acute (2) Hypoxia Status: Acute (3) Skin lesion of right lower extremity Status: Acute (4) CKD (chronic kidney disease) stage 3, GFR 30-59 ml/min Status: Chronic (5) Bronchitis Status: Acute (6) CHF exacerbation Status: Acute (7) Asthma Status: Chronic (8) HLD (hyperlipidemia) Status: Chronic (9) HTN (hypertension) Status: Chronic (10) DVT prophylaxis Status: Acute (11) Gout Status: Chronic (12) Diarrhea Status: Acute (13) Elevated troponin Status: Acute - Respiratory Orders Smoking Cessation: Smoking cessation has been advised. For more information, call the [employer] Tobacco Quit Line at 9-434-YGOX-NOW. - Diet/Nutrition Diet/Nutrition Orders: Cardiac - Activity Activity Orders: Ambulate - Services Needed Following services are medically necessary services: Nursing, Home Health Aide, Physical Therapy - Transfer Medications Prescriptions: Azithromycin [Azithromycin 6-Tab Pack] 250 mg PO PER PKG DI #6 tab GuaiFENesin ER [Mucinex] 600 mg PO BID #10 tbbp.12hr predniSONE [PredniSONE] 40 mg PO DAILY #5 tablet Home Medications: Ascorbate Calcium/Bioflavonoid [Shruthi-C 500 mg Tablet] 1 each PO DAILY 01/29/17 [History] Aspirin [Lo-Dose Aspirin EC] 81 mg PO DAILY 01/29/17 [History] Atenolol/Chlorthalidone [Tenoretic 50 Tablet] 1 each PO DAILY 01/29/17 [History] Ergocalciferol (VITAMIN D2) [Vitamin D2] 2,000 unit PO DAILY 01/29/17 [History] Febuxostat [Uloric] 40 mg PO DAILY 01/29/17 [History] Furosemide [Lasix] 20 mg PO QPM 01/29/17 [History] Furosemide [Lasix] 40 mg PO QAM 01/29/17 [History] Losartan Potassium [Cozaar] 25 mg PO DAILY 01/29/17 [History] Montelukast [Singulair] 10 mg PO DAILY 01/29/17 [History] Multivitamin [Multivitamins] 1 each PO AD 01/29/17 [History] [place]-3/Dha/Epa/Fish Oil [Fish Oil 1,000 mg Softgel] 1 each PO BID 01/29/17 [ History] Potassium Chloride [K-Tab ER] 20 meq PO TID 01/29/17 [History] Simvastatin [Zocor] 20 mg PO HS 01/29/17 [History] Vitamin E (Dl,Tocopheryl Acet) [Vitamin E] 400 unit PO DAILY 01/29/17 [History] Fluticasone Propionate Nasal [Flonase] 1 spray IN DAILY 05/18/17 [History] Ipratropium/Albuterol Neb [Duoneb] 3 ml IH Q6HR 08/21/17 [History] Nitrofurantoin Macrocrystal [Nitrofurantoin] 100 mg PO DAILY 08/21/17 [History] Pentoxifylline [TRENtal] 400 mg PO DAILY 08/21/17 [History] Rivaroxaban [Xarelto] 20 mg PO DAILY 08/21/17 [History] Cyanocobalamin (Vitamin B-12) [Vitamin B-12] 100 mcg PO DAILY 10/26/17 [History] Azithromycin [Azithromycin 6-Tab Pack] 250 mg PO PER PKG DI #6 tab 10/28/17 [Rx] GuaiFENesin ER [Mucinex] 600 mg PO BID #10 tbbp.12hr 10/28/17 [Rx] predniSONE [PredniSONE] 40 mg PO DAILY #5 tablet 10/28/17 [Rx] Allergies/Adverse Reactions: 3 Allergy/AdvReac Type Severity Reaction Status Date / Time cefuroxime Allergy Rash Verified 10/26/17 11:49 cephalexin [From Keflex] Allergy Rash Verified 10/26/17 11:49 doxycycline Allergy Rash Verified 10/26/17 11:49 gabapentin Allergy Rash Verified 10/26/17 13:25 levofloxacin [From Levaquin] Allergy Rash Verified 10/26/17 13:25 Penicillins [PCN] Allergy Rash Verified 10/26/17 11:49 Sulfa (Sulfonamide Allergy Rash Verified 10/26/17 11:49 Antibiotics) Certification: Further, I certify that my clinical findings support that this patient is homebound (i.e. absences from home require considerable and taxing effort and are for medical reasons or taoist services or infrequently or short duration when for other reasons) because: Homebound Reason: Patient requires assistance of a person or device to safely leave home Attestation: My signature below is to certify that this patient is under my care and that I, or nurse practitioner, or a physician's supply assistant working with me, has a face-to -face encounter with this patient.
--- NOTE | 2017-10-28 14:17 | Physician Discharge Referral ---
Home Health/Hosp Referral Info Transfer to: Home Health - Diagnosis (1) COPD exacerbation Priority: Primary Status: Acute (2) Hypoxia Status: Acute (3) Skin lesion of right lower extremity Priority: Primary Status: Acute (4) CKD (chronic kidney disease) stage 3, GFR 30-59 ml/min Status: Chronic (5) Bronchitis Status: Acute (6) CHF exacerbation Status: Acute (7) Asthma Status: Chronic (8) HLD (hyperlipidemia) Status: Chronic (9) HTN (hypertension) Status: Chronic (10) DVT prophylaxis Status: Acute (11) Gout Status: Chronic (12) Diarrhea Status: Acute (13) Elevated troponin Status: Acute - Respiratory Orders Smoking Cessation: Smoking cessation has been advised. For more information, call the [employer] Tobacco Quit Line at 6-322-CGQS-NOW. - Dressing/Wound Care Site: Right lower extremity Type of Dressing/Treatments w/Frequency: kerlix dressing and adaptic gauze daily - Diet/Nutrition Diet/Nutrition Orders: Cardiac - Services Needed Following services are medically necessary services: Nursing, Home Health Aide, Physical Therapy - Transfer Medications Prescriptions: Azithromycin [Azithromycin 6-Tab Pack] 250 mg PO PER PKG DI #6 tab GuaiFENesin ER [Mucinex] 600 mg PO BID #10 tbbp.12hr predniSONE [PredniSONE] 40 mg PO DAILY #5 tablet Home Medications: Ascorbate Calcium/Bioflavonoid [Shruthi-C 500 mg Tablet] 1 each PO DAILY 01/29/17 [History] Aspirin [Lo-Dose Aspirin EC] 81 mg PO DAILY 01/29/17 [History] Atenolol/Chlorthalidone [Tenoretic 50 Tablet] 1 each PO DAILY 01/29/17 [History] Ergocalciferol (VITAMIN D2) [Vitamin D2] 2,000 unit PO DAILY 01/29/17 [History] Febuxostat [Uloric] 40 mg PO DAILY 01/29/17 [History] Furosemide [Lasix] 20 mg PO QPM 01/29/17 [History] Furosemide [Lasix] 40 mg PO QAM 01/29/17 [History] Losartan Potassium [Cozaar] 25 mg PO DAILY 01/29/17 [History] Montelukast [Singulair] 10 mg PO DAILY 01/29/17 [History] Multivitamin [Multivitamins] 1 each PO AD 01/29/17 [History] [place]-3/Dha/Epa/Fish Oil [Fish Oil 1,000 mg Softgel] 1 each PO BID 01/29/17 [ History] Potassium Chloride [K-Tab ER] 20 meq PO TID 01/29/17 [History] Simvastatin [Zocor] 20 mg PO HS 01/29/17 [History] Vitamin E (Dl,Tocopheryl Acet) [Vitamin E] 400 unit PO DAILY 01/29/17 [History] Fluticasone Propionate Nasal [Flonase] 1 spray IN DAILY 05/18/17 [History] Ipratropium/Albuterol Neb [Duoneb] 3 ml IH Q6HR 08/21/17 [History] Nitrofurantoin Macrocrystal [Nitrofurantoin] 100 mg PO DAILY 08/21/17 [History] Pentoxifylline [TRENtal] 400 mg PO DAILY 08/21/17 [History] Rivaroxaban [Xarelto] 20 mg PO DAILY 08/21/17 [History] Cyanocobalamin (Vitamin B-12) [Vitamin B-12] 100 mcg PO DAILY 10/26/17 [History] Azithromycin [Azithromycin 6-Tab Pack] 250 mg PO PER PKG DI #6 tab 10/28/17 [Rx] GuaiFENesin ER [Mucinex] 600 mg PO BID #10 tbbp.12hr 10/28/17 [Rx] predniSONE [PredniSONE] 40 mg PO DAILY #5 tablet 10/28/17 [Rx] Allergies/Adverse Reactions: 3 Allergy/AdvReac Type Severity Reaction Status Date / Time cefuroxime Allergy Rash Verified 10/26/17 11:49 cephalexin [From Keflex] Allergy Rash Verified 10/26/17 11:49 doxycycline Allergy Rash Verified 10/26/17 11:49 gabapentin Allergy Rash Verified 10/26/17 13:25 levofloxacin [From Levaquin] Allergy Rash Verified 10/26/17 13:25 Penicillins [PCN] Allergy Rash Verified 10/26/17 11:49 Sulfa (Sulfonamide Allergy Rash Verified 10/26/17 11:49 Antibiotics) Certification: Further, I certify that my clinical findings support that this patient is homebound (i.e. absences from home require considerable and taxing effort and are for medical reasons or taoist services or infrequently or short duration when for other reasons) because: Homebound Reason: Patient requires assistance of a person or device to safely leave home Attestation: My signature below is to certify that this patient is under my care and that I, or nurse practitioner, or a physician's respiratory therapist assistant working with me, has a face-to -face encounter with this patient.
== END 2017-10-28 15:20 | disposition home or self-care (01) | DRG 190 ==
LOC: EMEROO 11:45 → 2NENU 11:45
PROVIDERS: ADMIT Nurse Practitioner Family; ATTEND Nurse Practitioner Family

== ENCOUNTER 2017-11-13 14:38 | Inpatient (IN) ==
[2017-11-13] MEDS ORDERED: Ondansetron 4 MG/2 ML VIAL IVP ONE (15:59)
[2017-11-13] MEDS ORDERED: 0.9 % Sodium Chloride 1,000 ML IVC ONE (15:59)
--- NOTE | 2017-11-13 16:05 | Emergency Department Note ---
Disposition Clinical Impression: Chronic diarrhea, Generalized weakness, Dehydration Disposition: Admitted As Inpatient Time of Disposition: 17:06 General Adult HPI - General Chief complaint: ED Weakness Stated complaint: Not feeling well Time Seen by Provider: 11/13/17 15:41 Source: patient, family Nursing Notes Reviewed: Yes Vital Signs Reviewed: Yes - History of Present Illness HPI Narrative: This is an 82 year-old female with history of HTN, HLD, and COPD who presents with generalized weakness, associated with nausea, very poor appetite, and chronic diarrhea. These symptoms sound chronic in nature, worse for the past 5 days. She has had watery diarrhea for several weeks, and her daughter reports a 30# weight loss within the past 2 months. The nausea makes it difficult for her to take her pills, and she wasn't able to take them at all today. Patient denies any associated fever, vomiting, abdominal pain, or bloody stool. She is being treated for left lower extremity venous stasis dermatitis by Dr. Garcia, and her home health aide, who re-wrapped the extremity yesterday, says it appears to be improving. Patient has had a couple of recent admissions (here and [facility]) related to dehydration. Pt Subjective Complaint: Weakness, Nausea, Diarrhea Onset (ago): day(s) (5) Pain Scale: 0 Consistency: constant Improves with: nothing Worsens with: nothing Associated symptoms: Reports: cough, loss of appetite, malaise, nausea/vomiting , weakness (generalized). Denies: chest pain, fever/chills, headaches, shortness of breath - Related Data Home Medications Medication Instructions Recorded Confirmed Ascorbate Calcium/Bioflavonoid 1 each PO DAILY 01/29/17 11/13/17 [Shruthi-C 500 mg Tablet] Aspirin [Lo-Dose Aspirin EC] 81 mg PO DAILY 01/29/17 11/13/17 Atenolol/Chlorthalidone [Tenoretic 1 each PO DAILY 01/29/17 11/13/17 50 Tablet] Ergocalciferol (VITAMIN D2) 2,000 unit PO DAILY 01/29/17 11/13/17 [Vitamin D2] Febuxostat [Uloric] 40 mg PO DAILY 01/29/17 11/13/17 Furosemide [Lasix] 20 mg PO QPM 01/29/17 11/13/17 Furosemide [Lasix] 40 mg PO QAM 01/29/17 11/13/17 Losartan Potassium [Cozaar] 25 mg PO DAILY 01/29/17 11/13/17 Montelukast [Singulair] 10 mg PO DAILY 01/29/17 11/13/17 Multivitamin [Multivitamins] 1 each PO AD 01/29/17 11/13/17 [place]-3/Dha/Epa/Fish Oil [Fish Oil 1 each PO BID 01/29/17 11/13/17 1,000 mg Softgel] Potassium Chloride [K-Tab ER] 20 meq PO TID 01/29/17 11/13/17 Simvastatin [Zocor] 20 mg PO HS 01/29/17 11/13/17 Vitamin E (Dl,Tocopheryl Acet) 400 unit PO DAILY 01/29/17 11/13/17 [Vitamin E] Fluticasone Propionate Nasal 1 spray IN DAILY 05/18/17 11/13/17 [Flonase] Ipratropium/Albuterol Neb [Duoneb] 3 ml IH Q6HR 08/21/17 11/13/17 Nitrofurantoin Macrocrystal 100 mg PO DAILY 08/21/17 11/13/17 [Nitrofurantoin] Pentoxifylline [TRENtal] 400 mg PO DAILY 08/21/17 11/13/17 Rivaroxaban [Xarelto] 20 mg PO DAILY 08/21/17 11/13/17 Cyanocobalamin (Vitamin B-12) 100 mcg PO DAILY 10/26/17 11/13/17 [Vitamin B-12] Allergies Allergy/AdvReac Type Severity Reaction Status Date / Time cefuroxime Allergy Rash Verified 11/13/17 14:43 cephalexin [From Keflex] Allergy Rash Verified 11/13/17 14:43 doxycycline Allergy Rash Verified 11/13/17 14:43 gabapentin Allergy Rash Verified 11/13/17 14:43 levofloxacin [From Levaquin] Allergy Rash Verified 11/13/17 14:43 Penicillins [PCN] Allergy Rash Verified 11/13/17 14:43 Sulfa (Sulfonamide Allergy Rash Verified 11/13/17 14:43 Antibiotics) All systems ED: reviewed and negative except as stated. Constitutional: Reports: as per HPI, weakness (generalized), weight change. Denies: fever Cardiovascular: Denies: chest pain Respiratory: Reports: cough (nonproductive). Denies: dyspnea Gastrointestinal: Reports: as per HPI, nausea, diarrhea. Denies: abdominal pain , vomiting, constipation, hematemesis, melena, hematochezia Genitourinary: Denies: dysuria Integumentary: Reports: as per HPI Neurological: Denies: headache Past Medical History - Past Medical History Medical history: Reports: asthma, COPD, hyperlipidemia, hypertension Surgical history: Reports: knee replacement, IVC filter Psychiatric history: Reports: no psych history - Social History Smoking Status: Never smoker Smokeless Tobacco Status: No Alcohol use: Reports: none Drug use: Reports: none Physical Exam - General Limitations: no limitations General appearance: alert - Head Head exam: atraumatic, normocephalic - Eye Eye exam: Present: normal appearance. Absent: scleral icterus - ENT ENT exam: normal exam, normal oropharynx - Neck Neck exam: Present: normal inspection - Respiratory Respiratory exam: Present: normal lung sounds bilaterally. Absent: respiratory distress, wheezes - Cardiovascular Cardiovascular exam: Present: regular rate, normal rhythm, normal heart sounds - Abdominal Exam Abdominal exam: Present: soft, tenderness (mild, diffuse tenderness), normal bowel sounds. Absent: distention, guarding, rebound, rigidity - Extremities Exam Extremities exam: Present: normal inspection, other (right leg wrapped) - Neurological Exam Neurological exam: Present: alert, oriented X3. Absent: motor sensory deficit - Psychiatric Psychiatric exam: Present: flat affect - Skin Skin exam: Present: warm, dry, intact Course - Consultations Consultation #1: Reviewed case with Dr. De Dios, and patient accepted for admit. Time: 17:06 Vital Signs Temperature 98.4 F 11/13/17 14:40 Pulse Rate 86 11/13/17 14:40 Respiratory Rate 11/13/17 14:40 Blood Pressure 94/59 11/13/17 14:40 O2 Sat by Pulse Oximetry 100 11/13/17 14:40 Temperature 98.8 F 11/15/17 06:54 Pulse Rate 103 11/15/17 06:54 Respiratory Rate 18 11/15/17 06:54 Blood Pressure 89/58 11/15/17 06:54 O2 Sat by Pulse Oximetry 94 11/15/17 06:54 Oxygen Delivery Oxygen Delivery Room Air Medical Decision Making - Lab Data Lab results reviewed: Yes I reviewed the patient's lab results. Result diagrams: 11/15/17 00:59 11/15/17 00:59 Lab Results 11/13/17 11/13/17 11/13/17 Range/Units 16:00 16:00 16:00 WBC 10.2 (4.3-11.1) K/mcL RBC 3.87 (3.82-4.97) M/mcL Hgb 11.3 L (11.5-15.4) g/dL Hct 33.6 L (35.3-44.9) % MCV 86.8 (83.0-100.0) fL MCH 29.2 (28.0-33.3) pg MCHC 33.6 (31.6-35.5) g/dL RDW 15.9 H (11.5-14.5) % Plt Count 155 (140-400) K/mcL MPV 9.8 (9.4-12.4) fL Immature Gran % 0.6 (0-4) % Seg Neutrophils % 87.1 % Lymphocytes % 8.4 % Monocytes % 3.5 % Eosinophils % 0.2 % Basophils % 0.2 % Neutrophils # 8.8 (1.6-8.9) K/mcL Lymphocytes # 0.9 (0.6-4.6) K/mcL Monocytes # 0.4 (0.0-1.3) K/mcL Eosinophils # 0.0 (0.0-0.6) K/mcL Basophils # 0.0 (0.0-0.2) K/mcL Sodium 132 L (136-145) mEq/L Potassium 3.4 L (3.5-5.1) mEq/L Chloride 96 L (98-107) mEq/L Carbon Dioxide 26 (23-29) mEq/L BUN 72 H (8-23) mg/dL Creatinine 1.25 H (0.60-1.20) mg/dL Est GFR ( Amer) 50 L (> 60) Est GFR (Non-Af Amer) 41 L (> 60) BUN/Creatinine Ratio 58 H (6-26) Glucose 148 H (70-105) mg/dL POC Glucose (70-99) mg/dL Calculated Osmolality 298 (280-300) Lactic Acid 1.3 (0.5-2.2) mmol/L Calcium 9.5 (8.6-10.3) mg/dL Troponin I < 0.03 (< 0.04) ng/mL B-Natriuretic Peptide (Less than 100) pg/mL TSH 1.573 (0.340-5.600) mcIU/mL Free T4 1.17 (0.70-2.00) ng/dl Urine Color (Yellow) Urine Clarity (Clear) Urine pH (5.0-8.0) pH Units Ur Specific [place] (1.010-1.025) Urine Protein (Neg-Trace) mg/dL Urine Glucose (UA) (Normal) mg/dL Urine Ketones (Negative) mg/dL Urine Blood (Negative) Urine Nitrite (Negative) Urine Bilirubin (Negative) Urine Urobilinogen (Normal) mg/dL Ur Leukocyte Esterase (Negative) Urine Microscopic RBC (0-3) per hpf Urine Microscopic WBC (0-3) per hpf Ur Squamous Epith Cells (None-Few) per lpf Urine Bacteria (None-Few) per hpf Hyaline Casts (None-Few) per lpf Ur Culture Indicated? (NO) 11/13/17 11/13/17 11/13/17 Range/Units 16:00 16:44 20:10 WBC (4.3-11.1) K/mcL RBC (3.82-4.97) M/mcL Hgb (11.5-15.4) g/dL Hct (35.3-44.9) % MCV (83.0-100.0) fL MCH (28.0-33.3) pg MCHC (31.6-35.5) g/dL RDW (11.5-14.5) % Plt Count (140-400) K/mcL MPV (9.4-12.4) fL Immature Gran % (0-4) % Seg Neutrophils % % Lymphocytes % % Monocytes % % Eosinophils % % Basophils % % Neutrophils # (1.6-8.9) K/mcL Lymphocytes # (0.6-4.6) K/mcL Monocytes # (0.0-1.3) K/mcL Eosinophils # (0.0-0.6) K/mcL Basophils # (0.0-0.2) K/mcL Sodium (136-145) mEq/L Potassium (3.5-5.1) mEq/L Chloride (98-107) mEq/L Carbon Dioxide (23-29) mEq/L BUN (8-23) mg/dL Creatinine (0.60-1.20) mg/dL Est GFR ( Amer) (> 60) Est GFR (Non-Af Amer) (> 60) BUN/Creatinine Ratio (6-26) Glucose (70-105) mg/dL POC Glucose 53 L (70-99) mg/dL Calculated Osmolality (280-300) Lactic Acid (0.5-2.2) mmol/L Calcium (8.6-10.3) mg/dL Troponin I (< 0.04) ng/mL B-Natriuretic Peptide 82 (Less than 100) pg/mL TSH (0.340-5.600) mcIU/mL Free T4 (0.70-2.00) ng/dl Urine Color Yellow (Yellow) Urine Clarity Cloudy A (Clear) Urine pH 5.0 (5.0-8.0) pH Units Ur Specific [place] 1.021 (1.010-1.025) Urine Protein Negative (Neg-Trace) mg/dL Urine Glucose (UA) Normal (Normal) mg/dL Urine Ketones Negative (Negative) mg/dL Urine Blood Trace H (Negative) Urine Nitrite Positive A (Negative) Urine Bilirubin Negative (Negative) Urine Urobilinogen Normal (Normal) mg/dL Ur Leukocyte Esterase Large H (Negative) Urine Microscopic RBC 5-15 H (0-3) per hpf Urine Microscopic WBC TNTC H (0-3) per hpf Ur Squamous Epith Cells Moderate H (None-Few) per lpf Urine Bacteria Many H (None-Few) per hpf Hyaline Casts None Seen (None-Few) per lpf Ur Culture Indicated? YES A (NO) 11/14/17 11/14/17 11/14/17 Range/Units 01:18 01:18 07:16 WBC 9.1 (4.3-11.1) K/mcL RBC 3.81 L (3.82-4.97) M/mcL Hgb 10.7 L (11.5-15.4) g/dL Hct 32.8 L (35.3-44.9) % MCV 86.1 (83.0-100.0) fL MCH 28.1 (28.0-33.3) pg MCHC 32.6 (31.6-35.5) g/dL RDW 16.0 H (11.5-14.5) % Plt Count 144 (140-400) K/mcL MPV 10.1 (9.4-12.4) fL Immature Gran % 0.4 (0-4) % Seg Neutrophils % 86.2 % Lymphocytes % 10.2 % Monocytes % 2.9 % Eosinophils % 0.2 % Basophils % 0.1 % Neutrophils # 7.8 (1.6-8.9) K/mcL Lymphocytes # 0.9 (0.6-4.6) K/mcL Monocytes # 0.3 (0.0-1.3) K/mcL Eosinophils # 0.0 (0.0-0.6) K/mcL Basophils # 0.0 (0.0-0.2) K/mcL Sodium 136 (136-145) mEq/L Potassium 3.3 L (3.5-5.1) mEq/L Chloride 101 (98-107) mEq/L Carbon Dioxide 27 (23-29) mEq/L BUN 59 H (8-23) mg/dL Creatinine 1.04 (0.60-1.20) mg/dL Est GFR ( Amer) > 60 (> 60) Est GFR (Non-Af Amer) 51 L (> 60) BUN/Creatinine Ratio 57 H (6-26) Glucose 48 L (70-105) mg/dL POC Glucose 35 L* (70-99) mg/dL Calculated Osmolality 296 (280-300) Lactic Acid (0.5-2.2) mmol/L Calcium 8.9 (8.6-10.3) mg/dL Troponin I (< 0.04) ng/mL B-Natriuretic Peptide (Less than 100) pg/mL TSH (0.340-5.600) mcIU/mL Free T4 (0.70-2.00) ng/dl Urine Color (Yellow) Urine Clarity (Clear) Urine pH (5.0-8.0) pH Units Ur Specific [place] (1.010-1.025) Urine Protein (Neg-Trace) mg/dL Urine Glucose (UA) (Normal) mg/dL Urine Ketones (Negative) mg/dL Urine Blood (Negative) Urine Nitrite (Negative) Urine Bilirubin (Negative) Urine Urobilinogen (Normal) mg/dL Ur Leukocyte Esterase (Negative) Urine Microscopic RBC (0-3) per hpf Urine Microscopic WBC (0-3) per hpf Ur Squamous Epith Cells (None-Few) per lpf Urine Bacteria (None-Few) per hpf Hyaline Casts (None-Few) per lpf Ur Culture Indicated? (NO) 11/14/17 11/14/17 Range/Units 07:17 08:11 WBC (4.3-11.1) K/mcL RBC (3.82-4.97) M/mcL Hgb (11.5-15.4) g/dL Hct (35.3-44.9) % MCV (83.0-100.0) fL MCH (28.0-33.3) pg MCHC (31.6-35.5) g/dL RDW (11.5-14.5) % Plt Count (140-400) K/mcL MPV (9.4-12.4) fL Immature Gran % (0-4) % Seg Neutrophils % % Lymphocytes % % Monocytes % % Eosinophils % % Basophils % % Neutrophils # (1.6-8.9) K/mcL Lymphocytes # (0.6-4.6) K/mcL Monocytes # (0.0-1.3) K/mcL Eosinophils # (0.0-0.6) K/mcL Basophils # (0.0-0.2) K/mcL Sodium (136-145) mEq/L Potassium (3.5-5.1) mEq/L Chloride (98-107) mEq/L Carbon Dioxide (23-29) mEq/L BUN (8-23) mg/dL Creatinine (0.60-1.20) mg/dL Est GFR ( Amer) (> 60) Est GFR (Non-Af Amer) (> 60) BUN/Creatinine Ratio (6-26) Glucose (70-105) mg/dL POC Glucose 41 L* 113 H (70-99) mg/dL Calculated Osmolality (280-300) Lactic Acid (0.5-2.2) mmol/L Calcium (8.6-10.3) mg/dL Troponin I (< 0.04) ng/mL B-Natriuretic Peptide (Less than 100) pg/mL TSH (0.340-5.600) mcIU/mL Free T4 (0.70-2.00) ng/dl Urine Color (Yellow) Urine Clarity (Clear) Urine pH (5.0-8.0) pH Units Ur Specific [place] (1.010-1.025) Urine Protein (Neg-Trace) mg/dL Urine Glucose (UA) (Normal) mg/dL Urine Ketones (Negative) mg/dL Urine Blood (Negative) Urine Nitrite (Negative) Urine Bilirubin (Negative) Urine Urobilinogen (Normal) mg/dL Ur Leukocyte Esterase (Negative) Urine Microscopic RBC (0-3) per hpf Urine Microscopic WBC (0-3) per hpf Ur Squamous Epith Cells (None-Few) per lpf Urine Bacteria (None-Few) per hpf Hyaline Casts (None-Few) per lpf Ur Culture Indicated? (NO)
[2017-11-13 16:12] LABS: Basophils % 0.2 %; Eosinophils % 0.2 %; Hematocrit 33.6 % (35.3-44.9); Hemoglobin 11.3 g/dL (11.5-15.4); Immature Granulocytes % 0.6 % (0-4); Lymphocytes # 0.9 K/mcL (0.6-4.6); Lymphocytes % 8.4 %; Mean Corpuscular HGB Conc 33.6 g/dL (31.6-35.5); Mean Corpuscular Hemoglobin 29.2 pg (28.0-33.3); Mean Corpuscular Volume 86.8 fL (83.0-100.0); Mean Platelet Volume 9.8 fL (9.4-12.4); Monocytes # 0.4 K/mcL (0.0-1.3); Monocytes % 3.5 %; Neutrophils # 8.8 K/mcL (1.6-8.9); Platelet Count 155 K/mcL (140-400); Red Blood Count 3.87 M/mcL (3.82-4.97); Red Cell Distribution Width 15.9 % (11.5-14.5); Segmented Neutrophils % 87.1 %
[2017-11-13 16:32] LABS: Troponin I < 0.03 ng/mL (< 0.04)
[2017-11-13 16:41] LABS: BUN/Creatinine Ratio 58 (6-26); Blood Urea Nitrogen 72 mg/dL (8-23); Calcium 9.5 mg/dL (8.6-10.3); Carbon Dioxide 26 mEq/L (23-29); Chloride 96 mEq/L (98-107); Glucose 148 mg/dL (70-105); Osmolality,Calculated 298 (280-300); Potassium 3.4 mEq/L (3.5-5.1); Sodium 132 mEq/L (136-145); eGFR For African Americans 50 (> 60); eGFR For Non-African Americans 41 (> 60)
[2017-11-13 16:47] LABS: Thyroid Stimulating Hormone 1.573 mcIU/mL (0.340-5.600)
[2017-11-13 17:06] LABS: Bilirubin,Urine Negative (Negative); Blood,Urine Trace (Negative); Clarity,Urine Cloudy (Clear); Color,Urine Yellow (Yellow); Glucose,Urine (UA) Normal (Normal); Ketones,Urine Negative (Negative); Leukocyte Esterase,Urine Large (Negative); Nitrite,Urine Positive (Negative); Protein,Urine Negative (Neg-Trace); Specific Gravity,Urine 1.021 (1.010-1.025); Urobilinogen,Urine Normal (Normal)
[2017-11-13 17:08] LABS: Bacteria,Urine Many per hpf (None-Few); Hyaline Casts,Urine None Seen per lpf (None-Few); Squamous Epithelial Cell,Urine Moderate per lpf (None-Few); WBC,Urine TNTC per hpf (0-3)
[2017-11-13] MEDS ORDERED: Naloxone 0.4 MG/ML INJ IVP PRN (19:31)
[2017-11-13] MEDS ORDERED: Ipratropium/Albuterol Neb 3 ML IH PRN (19:32)
--- NOTE | 2017-11-13 20:14 | Internal Med History&Physical ---
Date of Encounter: 11/13/17 Time of Encounter: 19:50 Internal Medicine - H&P: HPI Chief complaint: Intractable diarrhea, generalized weakness Admitted From: Emergency Dept Plans for Post Hospital Care: Home History of present illness: Ms. Sanders is a 82 year old female patient with a history of chronic cough, hypertension, hyperlipidemia, congestive heart failure, diabetes mellitus presented to the ER with complaints of intractable diarrhea. Symptoms have been going on for 3 weeks now. She had previously been hospitalized at [facility] earlier this month for ulcers on her lower extremities. She was given antibiotics then. She developed diarrhea soon after. She has continued to have diarrhea since then. She feels weak and tired. She denies any abdominal pain. She does complain of nausea. No new episodes of hematemesis or vomiting. She is also being evaluated by pulmonology for chronic cough. She has clear sputum most of the time but occasionally gets yellowish colored sputum. She also has chronic venous stasis dermatitis for which she follows up with podiatry. 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 This is healing now. Past Med Surg Social Fam HX - Past Medical History Attestation: Yes The following information was validated with the patient. Source: patient, old records reviewed, obtained from family Medical history: asthma, COPD, CVA, diabetes, hyperlipidemia, hypertension Psychiatric history: no psych history - Past Surgical History Surgical History: knee replacement, IVC filter - Social History Smoking Status: Never smoker Smokeless Tobacco Status: No Alcohol use: none Drug use: none - Family History Father Family Member Ethnicity: Non- Hx Family Cancer: Yes (Leukemia) Mother Family Member Ethnicity: Non- Living Status: Hx Family Cancer: Yes (Lung) Brother Family Member Ethnicity: Non- Living Status: Hx Family Respiratory Disorders: Yes (COPD/Emphysema) Hx Family Cancer: Yes (Lung) Sister Family Member Ethnicity: Non- Living Status: Still Living Hx Family Cardiac Disorders: No Hx Family Respiratory Disorders: Yes (COPD/Emphysema) Hx Family Cancer: Yes (Lung) Hx Family GI Disorders: No Hx Family Endocrine Disorder: No Hx Family Neuromuscular Disorders: No Hx Family Neurologic Disorders: No Hx Family HEENT Disorders: No Hx Family Autoimmune Disorders: No Internal Medicine - H&P: Meds Ascorbate Calcium/Bioflavonoid [Shruthi-C 500 mg Tablet] 1 each PO DAILY 01/29/17 [History] Aspirin [Lo-Dose Aspirin EC] 81 mg PO DAILY 01/29/17 [History] Atenolol/Chlorthalidone [Tenoretic 50 Tablet] 1 each PO DAILY 01/29/17 [History] Ergocalciferol (VITAMIN D2) [Vitamin D2] 2,000 unit PO DAILY 01/29/17 [History] Febuxostat [Uloric] 40 mg PO DAILY 01/29/17 [History] Furosemide [Lasix] 20 mg PO QPM 01/29/17 [History] Furosemide [Lasix] 40 mg PO QAM 01/29/17 [History] Losartan Potassium [Cozaar] 25 mg PO DAILY 01/29/17 [History] Montelukast [Singulair] 10 mg PO DAILY 01/29/17 [History] Multivitamin [Multivitamins] 1 each PO AD 01/29/17 [History] [place]-3/Dha/Epa/Fish Oil [Fish Oil 1,000 mg Softgel] 1 each PO BID 01/29/17 [ History] Potassium Chloride [K-Tab ER] 20 meq PO TID 01/29/17 [History] Simvastatin [Zocor] 20 mg PO HS 01/29/17 [History] Vitamin E (Dl,Tocopheryl Acet) [Vitamin E] 400 unit PO DAILY 01/29/17 [History] Fluticasone Propionate Nasal [Flonase] 1 spray IN DAILY 05/18/17 [History] Ipratropium/Albuterol Neb [Duoneb] 3 ml IH Q6HR 08/21/17 [History] Nitrofurantoin Macrocrystal [Nitrofurantoin] 100 mg PO DAILY 08/21/17 [History] Pentoxifylline [TRENtal] 400 mg PO DAILY 08/21/17 [History] Rivaroxaban [Xarelto] 20 mg PO DAILY 08/21/17 [History] Cyanocobalamin (Vitamin B-12) [Vitamin B-12] 100 mcg PO DAILY 10/26/17 [History] 3 Allergy/AdvReac Type Severity Reaction Status Date / Time cefuroxime Allergy Rash Verified 11/13/17 14:43 cephalexin [From Keflex] Allergy Rash Verified 11/13/17 14:43 doxycycline Allergy Rash Verified 11/13/17 14:43 gabapentin Allergy Rash Verified 11/13/17 14:43 levofloxacin [From Levaquin] Allergy Rash Verified 11/13/17 14:43 Penicillins [PCN] Allergy Rash Verified 11/13/17 14:43 Sulfa (Sulfonamide Allergy Rash Verified 11/13/17 14:43 Antibiotics) All Systems PM: A 10-system review of systems was performed and is negative for pertinent findings except as documented above in the HPI. - Constitutional Constitutional: malaise, weakness, no chills, no fever(s), no night sweats - EENT Eyes: no change in vision, no discharge, no pain, no photophobia Ears: no ear discharge, no ear pain, no tinnitus Nose, mouth and throat: no dysphagia, no nasal discharge, no neck pain, no sore throat - Cardiovascular Cardiovascular ROS IM: no chest pain, no diaphoresis, no dyspnea, no lightheadedness, no palpitations, no syncope - Respiratory Respiratory: no cough, no dyspnea, no wheezing, no excessive phlegm production - Gastrointestinal Gastrointestinal: no abdominal pain, no diarrhea, no hematemesis, no hematochezia, no melena, no nausea, no vomiting - Genitourinary Genitourinary: no change in urinary stream, no dysuria, no flank pain, no hematuria - Musculoskeletal Musculoskeletal ROS IM: no numbness, no tingling - Integumentary Integumentary IM: erythema (B/l lower extremities), no rash, no unusual bruising - Neurological Neurological ROS: no confusion, no convulsions, no focal weakness, no numbness, no tingling, no tremor(s) - Hematologic/Lymphatic Hematologic/Lymphatic: no easy bruising - Constitutional Vitals: Temp Pulse Resp BP Pulse Ox 99.9 F H 75 18 95/56 95 11/13/17 18:22 11/13/17 18:22 11/13/17 18:22 11/13/17 18:22 11/13/17 18:30 General appearance: Present: cooperative, A&O X 3, pleasant, answers questions appropriately Exam: Somnolent but easily awakes and answers questions appropriately. - Neck Neck exam general surgery: Present: supple, trachea midline. Absent: lymphadenopathy - Respiratory Respiratory exam: Present: CTAB. Absent: accessory muscle use, rales, rhonchi, wheezes - Cardiovascular Cardiovascular exam: Present: RRR, +S1, +S2. Absent: diastolic murmur, gallop, rubs, systolic murmur - GI/Abdominal GI/Abdominal exam: Present: normal bowel sounds, soft, no peritoneal signs. Absent: distended, tenderness - Extremities Exam Extremities exam: Present: warm, radial pulses palpable and symmetrical. Absent : calf tenderness, cyanotic, pedal edema - Neurological Exam Neurological exam: Present: CN II-XII intact, oriented X3, no focal deficits. Absent: facial droop, speech deficit - Skin Skin exam: Present: dry, intact Internal Med - H&P Results - Labs CBC & Chem 7: 11/13/17 16:00 11/13/17 16:00 - Assessment and plan (1) Dehydration Current Visit: Yes Status: Acute Assessment and plan: Patient presenting with dehydration and mild acute kidney injury related to acute on chronic diarrhea. No associated abdominal pain. Does have nausea. No vomiting. No hematemesis or melena. Will check stools GI panel. Received antibiotics earlier this month. Check stool for C. difficile. (2) CHF (congestive heart failure) Current Visit: Yes Status: Chronic Assessment and plan: Patient reports history of congestive heart failure. 2-D echocardiogram done earlier this month showed normal EF with indeterminate diastolic dysfunction. Will hold Lasix for now as patient is dehydrated. No signs of acute CHF exacerbation at this time. Qualifiers: Heart failure type: diastolic Heart failure chronicity: chronic Qualified Code(s): I50.32 - Chronic diastolic (congestive) heart failure (3) Chronic diarrhea Current Visit: Yes Status: Acute Assessment and plan: Patient having diarrhea for 3 weeks now. We will check stool for C. difficile and also check GI panel. If negative, will place patient on loperamide and lactobacillus. (4) Generalized weakness Current Visit: Yes Status: Acute Assessment and plan: Due to dehydration. We will consult PT OT for evaluation (5) Acute kidney injury Current Visit: No Status: Acute Assessment and plan: Mild acute kidney injury. 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 We will treat with IV fluids. Monitor renal function. Avoid nephrotoxic agents. Hold Lasix. (6) Bronchitis Current Visit: Yes Status: Chronic Assessment and plan: Patient has chronic cough. Likely from chronic bronchitis. Will treat symptomatically with bronchodilators as needed. Follow up with pulmonology after discharge. (7) HLD (hyperlipidemia) Current Visit: Yes Status: Chronic Assessment and plan: Continue Zocor Qualifiers: Hyperlipidemia type: pure hypercholesterolemia Qualified Code(s): E78.00 - Pure hypercholesterolemia, unspecified; E78.0 - Pure hypercholesterolemia (8) HTN (hypertension) Current Visit: Yes Status: Chronic Assessment and plan: Patient was slightly hypotensive on arrival here. Will treat with IV fluids. Hold antihypertensives for now. Qualifiers: Hypertension type: essential hypertension Qualified Code(s): I10 - Essential (primary) hypertension (9) DVT prophylaxis Current Visit: No Status: Acute Assessment and plan: Patient has prior history of lower extremity venous thrombosis. On Xarelto. We will continue this medication - Time Spent With Patient Total time spent is greater than 50% in coordination of care (as documented) at patient's floor/unit and/or counseling patient:
[2017-11-13] MEDS ORDERED: *HR* Dextrose 50 % in Water (Syg) 50 ML SYRINGE IVP PRN (20:56)
[2017-11-13] MEDS ORDERED: Dextrose Gel 15 GM/37.5 ML TUBE PO PRN ×2 (20:56)
[2017-11-13] MEDS: Ringers Solution, Lactated 1,000 ML IVC SCH (22:04)
[2017-11-13] MEDS: (Omega-3/Dha/Epa/Fish Oil [Fish Oil 1,000 Mg Softgel]) PO SCH (22:05)
[2017-11-14 01:44] LABS: Basophils % 0.1 %; Eosinophils % 0.2 %; Hematocrit 32.8 % (35.3-44.9); Hemoglobin 10.7 g/dL (11.5-15.4); Immature Granulocytes % 0.4 % (0-4); Lymphocytes # 0.9 K/mcL (0.6-4.6); Lymphocytes % 10.2 %; Mean Corpuscular HGB Conc 32.6 g/dL (31.6-35.5); Mean Corpuscular Hemoglobin 28.1 pg (28.0-33.3); Mean Corpuscular Volume 86.1 fL (83.0-100.0); Mean Platelet Volume 10.1 fL (9.4-12.4); Monocytes # 0.3 K/mcL (0.0-1.3); Monocytes % 2.9 %; Neutrophils # 7.8 K/mcL (1.6-8.9); Platelet Count 144 K/mcL (140-400); Red Blood Count 3.81 M/mcL (3.82-4.97); Segmented Neutrophils % 86.2 %
[2017-11-14 02:02] LABS: BUN/Creatinine Ratio 57 (6-26); Blood Urea Nitrogen 59 mg/dL (8-23); Calcium 8.9 mg/dL (8.6-10.3); Carbon Dioxide 27 mEq/L (23-29); Chloride 101 mEq/L (98-107); Glucose 48 mg/dL (70-105); Osmolality,Calculated 296 (280-300); Potassium 3.3 mEq/L (3.5-5.1); Sodium 136 mEq/L (136-145); eGFR For African Americans > 60 (> 60); eGFR For Non-African Americans 51 (> 60)
[2017-11-14] MEDS ORDERED: Albuterol 2.5 MG/3 ML NEBULIZER IH PRN (07:59)
--- NOTE | 2017-11-14 08:06 | Internal Med Progress Note ---
Date of Encounter: 11/14/17 Time of Encounter: 08:03 - Assessment and plan (1) Chronic diarrhea Current Visit: Yes Status: Acute Assessment and plan: Patient having diarrhea for 3 weeks now. Stool for C. difficile and GI panel pending. No further bowel movements since admission. Start lactobacillus. Start trial of clear liquid diet at patient's request. (2) Dehydration Current Visit: Yes Status: Acute Assessment and plan: Patient presenting with dehydration and mild acute kidney injury related to acute on chronic diarrhea. Continue gentle IVF. Recheck labwork in AM. (3) Generalized weakness Current Visit: Yes Status: Acute Assessment and plan: [place] secondary to dehydration. We will consult PT/OT for evaluation. (4) Acute kidney injury Current Visit: Yes Status: Resolved Assessment and plan: Resovled. Continue gentle IVF due to diarrhea and poor PO intake for now. Recheck BMP in AM. (5) Bronchitis Current Visit: Yes Status: Chronic Assessment and plan: History of COPD. Patient has chronic cough. Likely from chronic bronchitis. Will schedule duonebs and albuterol nebs PRN. Add chest PT and mucomyst inhaled with nebs. Start claritin and mucinex. Continue home medications. Follow up with pulmonology after discharge. (6) HLD (hyperlipidemia) Current Visit: Yes Status: Chronic Assessment and plan: Continue home zocor. Qualifiers: Hyperlipidemia type: pure hypercholesterolemia Qualified Code(s): E78.00 - Pure hypercholesterolemia, unspecified; E78.0 - Pure hypercholesterolemia (7) HTN (hypertension) Current Visit: Yes Status: Chronic Assessment and plan: Patient still slightly hypotensive. Continue gentle hydration with IVF. Hold antihypertensives for now. Qualifiers: Hypertension type: essential hypertension Qualified Code(s): I10 - Essential (primary) hypertension (8) CHF (congestive heart failure) Current Visit: Yes Status: Chronic Assessment and plan: Patient reports history of congestive heart failure. 2-D echocardiogram done earlier this month showed normal EF with indeterminate diastolic dysfunction. Will hold Lasix for now as patient is dehydrated. No signs of acute CHF exacerbation at this time. Monitor closely as she is on IVF. Qualifiers: Heart failure type: diastolic Heart failure chronicity: chronic Qualified Code(s): I50.32 - Chronic diastolic (congestive) heart failure (9) Acute cystitis with hematuria Current Visit: Yes Status: Acute Assessment and plan: She has a chronic history of UTIs. On long-term macrobid. Hold macrobid. Start gentamicin, given multiple allergies. Consulted pharmacy for gentamicin dosing. (10) Type II diabetes mellitus with hypoglycemia Current Visit: Yes Status: Acute Assessment and plan: Continue hypoglycemia protocol. Start clear liquid diet today. Continue accuchecks. Qualifiers: Diabetes mellitus want ad supervisor insulin use: unspecified fdc insulin use status Diabetes mellitus complication detail: without coma Qualified Code(s) : E11.649 - Type 2 diabetes mellitus with hypoglycemia without coma (11) Venous stasis ulcer Current Visit: Yes Status: Acute Assessment and plan: RLE. Chronic issue. Will consult wound care. Qualifiers: Venous stasis ulcer site: other part of lower leg Varicose vein presence: unspecified whether present Laterality: right Non-pressure ulcer stage: unspecified non-pressure ulcer stage Qualified Code(s): I83.018 - Varicose veins of right lower extremity with ulcer other part of lower leg; L97.819 - Non -pressure chronic ulcer of other part of right lower leg with unspecified severity (12) DVT prophylaxis Current Visit: No Status: Acute Assessment and plan: Patient has prior history of lower extremity venous thrombosis. Continue home xarelto. - Time Spent With Patient Total time spent is greater than 50% in coordination of care (as documented) at patient's floor/unit and/or counseling patient: less than 15 minutes - Subjective Interval history: Patient had no acute events overnight. Nursing staff reports fever this AM. Patient is having significant cough this AM. 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 She states no new bowel movement. No nausea at this time. Nursing staff reports hypoglycemia this AM. Patient wants to eat. She has no other complaints at this time. - Constitutional Vitals: Temp Pulse Resp BP Pulse Ox 103.1 F H 99 18 105/68 94 11/14/17 06:51 11/14/17 06:51 11/14/17 06:51 11/14/17 06:51 11/14/17 06:51 General appearance: Present: cooperative, A&O X 3, pleasant, no acute distress, answers questions appropriately - Respiratory Respiratory exam: Present: CTAB. Absent: accessory muscle use, rales, rhonchi, wheezes Additional comments: Normal WOB, intermittent cough - Cardiovascular Cardiovascular exam: Present: RRR, +S1, +S2. Absent: diastolic murmur, gallop, rubs, systolic murmur Additional comments: No BLE edema - GI/Abdominal GI/Abdominal exam: Present: normal bowel sounds, soft. Absent: distended, guarding, hepatomegaly, mass, rebound, splenomegaly Additional comments: Mild TTP diffusely across abdomen - Psychiatric Psychiatric exam: Present: normal affect, normal mood. Absent: agitated, anxious, depressed - Skin Skin exam: Present: dry, intact, warm. Absent: cyanosis, rash Additional comments: RLE in bandaging, no discharge/induration/TTP Internal Medicine: Result - Labs CBC & Chem 7: 11/14/17 01:18 11/14/17 01:18 Labs: Short CBC 11/14/17 Range/Units 01:18 WBC 9.1 (4.3-11.1) K/mcL Hgb 10.7 L (11.5-15.4) g/dL Hct 32.8 L (35.3-44.9) % Plt Count 144 (140-400) K/mcL Neutrophils # 7.8 (1.6-8.9) K/mcL BMP 11/14/17 01:18 Sodium 136 Potassium 3.3 L Chloride 101 Carbon Dioxide 27 BUN 59 H Creatinine 1.04 Glucose 48 L Calcium 8.9 - VTE Contraindication No Overlap Therapy: Admin of oral Factor Xa Inhibitor Consult Discharge Plan - Plan Referrals: Hawa Patterson MD [Primary Care Provider] -
[2017-11-14] MEDS ORDERED: CHLORTHALIDONE PO SCH (09:00)
[2017-11-14] MEDS ORDERED: ATENOLOL PO SCH (09:00)
[2017-11-14] MEDS ORDERED: [UNRECOGNIZED DRUG - OTHER] PO SCH (09:00)
[2017-11-14] MEDS ORDERED: Nitrofurantoin (BID) 100 MG CAPSULE PO SCH (09:00)
[2017-11-14] MEDS: Lactobacillus 1 EACH CAP.SPRINK PO SCH ×3 (09:03→21:25)
[2017-11-14] MEDS: Multivit/Ca/Min/Fe/FA 1 TAB TABLET PO SCH (09:11)
[2017-11-14] MEDS: Loratadine 10 MG TABLET PO SCH (09:11)
[2017-11-14] MEDS: Cyanocobalamin (B-12) 1,000 MCG TABLET PO SCH (09:11)
[2017-11-14] MEDS: Cholecalciferol (D-3) 1,000 UNIT TABLET PO SCH (09:11)
[2017-11-14] MEDS: Aspirin Enteric Coated 81 MG Tablet PO SCH (09:11)
[2017-11-14] MEDS: (Febuxostat [Uloric] 40 MG) PO SCH (09:12)
[2017-11-14] MEDS: (Omega-3/Dha/Epa/Fish Oil [Fish Oil 1,000 Mg Softgel]) PO SCH ×2 (09:12→21:25)
[2017-11-14] MEDS ORDERED: Gentamicin 80 MG in 0.9 % Sodium Chloride 100 ML IVPB ONE (09:18)
[2017-11-14] MEDS: Acetylcysteine 10% 2 ML INHSOL IH SCH ×3 (11:05→22:39)
[2017-11-14] MEDS: Ipratropium/Albuterol Neb 3 ML IH SCH ×3 (11:05→22:39)
[2017-11-14] MEDS: Fluticasone Propionate Nasal 50 MCG/SPRAY BOTTLE NS SCH (11:12)
[2017-11-14] MEDS: Silvasorb 44.4 ML TUBE TP SCH (13:00)
[2017-11-14] MEDS: Ringers Solution, Lactated 1,000 ML IVC SCH ×2 (16:45→16:54)
[2017-11-14] MEDS: *HR* Rivaroxaban 15 MG TABLET PO SCH (16:49)
[2017-11-14] MEDS: Acetaminophen 325 MG TABLET PO PRN (16:53)
[2017-11-14] MEDS: Ondansetron 4 MG/2 ML VIAL IVP PRN (21:37)
[2017-11-14 21:59] LABS: Occult Blood,Stool Positive (Negative)
[2017-11-15 01:48] LABS: Basophils % 0.1 %; Eosinophils % 0.3 %; Hematocrit 31.2 % (35.3-44.9); Hemoglobin 10.1 g/dL (11.5-15.4); Immature Granulocytes % 0.7 % (0-4); Lymphocytes # 0.6 K/mcL (0.6-4.6); Lymphocytes % 6.2 %; Mean Corpuscular HGB Conc 32.4 g/dL (31.6-35.5); Mean Corpuscular Hemoglobin 28.1 pg (28.0-33.3); Mean Corpuscular Volume 86.9 fL (83.0-100.0); Monocytes # 0.1 K/mcL (0.0-1.3); Monocytes % 1.4 %; Neutrophils # 8.2 K/mcL (1.6-8.9); Platelet Count 111 K/mcL (140-400); Red Blood Count 3.59 M/mcL (3.82-4.97); Segmented Neutrophils % 91.3 %
[2017-11-15 02:09] LABS: BUN/Creatinine Ratio 44 (6-26); Blood Urea Nitrogen 46 mg/dL (8-23); Calcium 8.6 mg/dL (8.6-10.3); Carbon Dioxide 26 mEq/L (23-29); Chloride 102 mEq/L (98-107); Glucose 64 mg/dL (70-105); Osmolality,Calculated 290 (280-300); Sodium 135 mEq/L (136-145); eGFR For African Americans > 60 (> 60); eGFR For Non-African Americans 51 (> 60)
[2017-11-15 02:14] LABS: Platelet Estimate Decreased (Normal); Reactive Lymphocytes Present (Not Present)
[2017-11-15] MEDS: Acetaminophen 325 MG TABLET PO PRN ×2 (03:25→16:08)
[2017-11-15] MEDS: Ipratropium/Albuterol Neb 3 ML IH SCH ×4 (03:40→22:05)
[2017-11-15] MEDS: Acetylcysteine 10% 2 ML INHSOL IH SCH ×4 (03:41→22:05)
--- NOTE | 2017-11-15 08:32 | Electrocardiograph Report ---
[place] [employer] Test Date: 2017-11-13 Pat Name: Parviz Sanders Department: 104 Room: [facility] Gender: F Active Directory Specialist: : [id number] Requested By: Navdeep Vazquez Order Number: [id number] Reading MD: Mario Murray Measurements Intervals [place] Rate: 74 P: 81 [place]: 212 QRS: 58 QRSD: 93 T: 47 QT: 385 QTc: 412 Interpretive Statements SINUS RHYTHM WITH FIRST DEGREE AV BLOCK MODERATE T-WAVE ABNORMALITY, CONSIDER ANTERIOR ISCHEMIA Electronically Signed On 11-15-2017 8:30:23 EDT by Mario Murray
--- NOTE | 2017-11-15 09:43 | Internal Med Progress Note ---
Date of Encounter: 11/15/17 Time of Encounter: 09:40 - Assessment and plan (1) Chronic diarrhea Current Visit: Yes Status: Acute Assessment and plan: Patient having diarrhea for 3 weeks now. Stool for C. difficile and GI panel recollected today; will follow up on results. Loose bowel movement today. Continue lactobacillus. Advance to regular diet per patient's request. (2) Dehydration Current Visit: Yes Status: Acute Assessment and plan: Patient presenting with dehydration and mild acute kidney injury related to acute on chronic diarrhea. Continue gentle IVF. Recheck labwork in AM. (3) Generalized weakness Current Visit: Yes Status: Acute Assessment and plan: Likely secondary to dehydration. PT/OT/SW consulted. We will set up home health at discharge. (4) Acute kidney injury Current Visit: Yes Status: Resolved Assessment and plan: Resolved. Continue gentle IVF due to diarrhea and poor PO intake for now. Recheck BMP in AM. (5) Bronchitis Current Visit: Yes Status: Chronic Assessment and plan: History of COPD. Patient has chronic cough. Likely from chronic bronchitis. Continue scheduled duonebs and albuterol nebs PRN. Continue chest PT and mucomyst inhaled with nebs. Continue claritin and mucinex. Continue home medications. Follow up with pulmonology outpatient after discharge. (6) HLD (hyperlipidemia) Current Visit: Yes Status: Chronic Assessment and plan: Continue home zocor. Qualifiers: Hyperlipidemia type: pure hypercholesterolemia Qualified Code(s): E78.00 - Pure hypercholesterolemia, unspecified; E78.0 - Pure hypercholesterolemia (7) HTN (hypertension) Current Visit: Yes Status: Chronic Assessment and plan: Patient still slightly hypotensive. Continue gentle hydration with IVF. Hold antihypertensives for now. Qualifiers: Hypertension type: essential hypertension Qualified Code(s): I10 - Essential (primary) hypertension (8) CHF (congestive heart failure) Current Visit: Yes Status: Chronic Assessment and plan: Patient reports history of congestive heart failure. 2-D echocardiogram done earlier this month showed normal EF with indeterminate diastolic dysfunction. Will hold Lasix for now as patient is dehydrated. No signs of acute CHF exacerbation at this time. Monitor closely as she is on IVF. Qualifiers: Heart failure type: diastolic Heart failure chronicity: chronic Qualified Code(s): I50.32 - Chronic diastolic (congestive) heart failure (9) Acute cystitis with hematuria Current Visit: Yes Status: Acute Assessment and plan: She has a chronic history of UTIs. On long-term macrobid. Hold macrobid. Continue gentamicin, given multiple allergies. Consulted pharmacy for gentamicin dosing. (10) Type II diabetes mellitus with hypoglycemia Current Visit: Yes Status: Acute Assessment and plan: Still with some asymptomatic borderline hypoglycemia. Continue hypoglycemia protocol. Transition to regular diet today. Continue accuchecks. Qualifiers: Diabetes mellitus chcf insulin use: unspecified chcf insulin use status Diabetes mellitus complication detail: without coma Qualified Code(s) : E11.649 - Type 2 diabetes mellitus with hypoglycemia without coma (11) Venous stasis ulcer Current Visit: Yes Status: Acute Assessment and plan: RLE. Chronic issue. Wound care; appreciate their recommendations. Qualifiers: Venous stasis ulcer site: other part of lower leg Varicose vein presence: unspecified whether present Laterality: right Non-pressure ulcer stage: unspecified non-pressure ulcer stage Qualified Code(s): I83.018 - Varicose veins of right lower extremity with ulcer other part of lower leg; L97.819 - Non -pressure chronic ulcer of other part of right lower leg with unspecified severity (12) DVT prophylaxis Current Visit: No Status: Acute Assessment and plan: Patient has prior history of lower extremity venous thrombosis. Continue home xarelto. - Time Spent With Patient Total time spent is greater than 50% in coordination of care (as documented) at patient's floor/unit and/or counseling patient: less than 15 minutes - Subjective Interval history: Patient had no acute events overnight. Tmax 100.7 degrees F in last 24 hours; afebrile since midnight. Patient is up in chair and states she is doing much better today. Family states that she had increased cough last night after nebulizer treatment. She has not coughed once while I was in room today. Patient states she had outpatient pulmonology appointment coming up with Dr. Mike; we will rescheduled prior to discharge. She had loose stool this AM, so stool cultures and studies sent. No nausea at this time. Still with some asymptomatic borderline hypoglycemia. She wants regular diet today. She has no other complaints at this time. - Constitutional Vitals: Temp Pulse Resp BP Pulse Ox 98.8 F 103 18 89/58 94 11/15/17 06:54 11/15/17 06:54 11/15/17 06:54 11/15/17 06:54 11/15/17 06:54 General appearance: Present: cooperative, A&O X 3, pleasant, no acute distress, answers questions appropriately - Respiratory Respiratory exam: Present: CTAB. Absent: accessory muscle use, rales, rhonchi, wheezes Additional comments: Normal WOB - Cardiovascular Cardiovascular exam: Present: RRR, +S1, +S2. Absent: diastolic murmur, gallop, rubs, systolic murmur Additional comments: No BLE edema - GI/Abdominal GI/Abdominal exam: Present: normal bowel sounds, soft. Absent: distended, hepatomegaly, mass, splenomegaly, tenderness - Psychiatric Psychiatric exam: Present: normal affect, normal mood. Absent: agitated, anxious, depressed - Skin Skin exam: Present: dry, intact, warm. Absent: cyanosis, rash Internal Medicine: Result - Labs CBC & Chem 7: 11/15/17 00:59 11/15/17 00:59 Labs: Short CBC 11/15/17 Range/Units 00:59 WBC 9.0 (4.3-11.1) K/mcL Hgb 10.1 L (11.5-15.4) g/dL Hct 31.2 L (35.3-44.9) % Plt Count 111 L (140-400) K/mcL Neutrophils # 8.2 (1.6-8.9) K/mcL BMP 11/15/17 00:59 Sodium 135 L Potassium 4.0 Chloride 102 Carbon Dioxide 26 BUN 46 H Creatinine 1.04 Glucose 64 L Calcium 8.6 - VTE Documentation of Mechanical Device: Intermittent pneumatic compression device Contraindication No Overlap Therapy: Admin of oral Factor Xa Inhibitor Consult Discharge Plan - Plan Referrals: Hawa Patterson MD [Primary Care Provider] -
[2017-11-15] MEDS: Pantoprazole 40 MG VIAL IVP SCH (10:12)
[2017-11-15 10:32] LABS: C.difficile Toxin A/B by PCR Not detected (Not detect); Campylobacter by PCR Not detected (Not detect); Plesiomonas shigelloides PCR Not detected (Not detect); Salmonella PCR Not detected (Not detect)
[2017-11-15 10:33] LABS: Adenovirus F 40/41 PCR Not detected (Not detect); Astrovirus PCR Not detected (Not detect); Cryptosporidium by PCR Not detected (Not detect); Cyclospora cayetanensis PCR Not detected (Not detect); E. coli O157 by PCR Not detected (Not detect); Entamoeba histolytica PCR Not detected (Not detect); Enteroaggregative E.coli(EAEC) Not detected (Not detect); Enteropathogenic E.coli(EPEC) Not detected (Not detect); Enterotoxigenic E.coli (ETEC) Not detected (Not detect); Giardia lamblia PCR Not detected (Not detect); Norovirus GI/GII PCR Not detected (Not detect); Rotavirus A PCR Not detected (Not detect); Sapovirus PCR Not detected (Not detect); Shig/EnteroinvasiveE coli EIEC Not detected (Not detect); Shigalike tox-prod E coli STEC Not detected (Not detect); Vibrio PCR Not detected (Not detect); Vibrio cholerae PCR Not detected (Not detect); Yersinia enterocolitica PCR Not detected (Not detect)
[2017-11-15] MEDS: Gentamicin 70 MG in 0.9 % Sodium Chloride 100 ML IVPB SCH (10:34)
[2017-11-15] MEDS: Ringers Solution, Lactated 1,000 ML IVC SCH (10:34)
[2017-11-15] MEDS: Loratadine 10 MG TABLET PO SCH (10:44)
[2017-11-15] MEDS: (Omega-3/Dha/Epa/Fish Oil [Fish Oil 1,000 Mg Softgel]) PO SCH ×2 (10:44→21:27)
[2017-11-15] MEDS: Lactobacillus 1 EACH CAP.SPRINK PO SCH ×2 (10:44→21:26)
[2017-11-15] MEDS: (Febuxostat [Uloric] 40 MG) PO SCH (10:44)
[2017-11-15] MEDS: Fluticasone Propionate Nasal 50 MCG/SPRAY BOTTLE NS SCH (10:44)
[2017-11-15] MEDS: Aspirin Enteric Coated 81 MG Tablet PO SCH (10:44)
[2017-11-15] MEDS: Cholecalciferol (D-3) 1,000 UNIT TABLET PO SCH (10:45)
[2017-11-15] MEDS: Cyanocobalamin (B-12) 1,000 MCG TABLET PO SCH (10:45)
[2017-11-15] MEDS: Multivit/Ca/Min/Fe/FA 1 TAB TABLET PO SCH (10:45)
[2017-11-15] MEDS: Silvasorb 44.4 ML TUBE TP SCH (10:45)
[2017-11-15] MEDS: *HR* Rivaroxaban 15 MG TABLET PO SCH (16:09)
[2017-11-16] MEDS: Acetaminophen 325 MG TABLET PO PRN ×3 (00:57→23:46)
[2017-11-16] MEDS: Ringers Solution, Lactated 1,000 ML IVC SCH (02:10)
[2017-11-16 04:01] LABS: Mean Platelet Volume 10.1 fL (9.4-12.4)
[2017-11-16 04:03] LABS: Eosinophils # 0.1 K/mcL (0.0-0.6); Eosinophils % 1.7 %; Hemoglobin 8.8 g/dL (11.5-15.4); Immature Granulocytes % 0.3 % (0-4); Immature Platelets 1.7 % (1.1-6.1); Lymphocytes # 0.5 K/mcL (0.6-4.6); Lymphocytes % 7.4 %; Mean Corpuscular HGB Conc 32.6 g/dL (31.6-35.5); Mean Corpuscular Hemoglobin 28.3 pg (28.0-33.3); Mean Corpuscular Volume 86.8 fL (83.0-100.0); Monocytes # 0.1 K/mcL (0.0-1.3); Monocytes % 1.6 %; Neutrophils # 5.7 K/mcL (1.6-8.9); Red Blood Count 3.11 M/mcL (3.82-4.97); Red Cell Distribution Width 16.2 % (11.5-14.5)
[2017-11-16 04:07] LABS: Platelet Count 92 K/mcL (140-400)
[2017-11-16] MEDS: Ipratropium/Albuterol Neb 3 ML IH SCH ×4 (04:14→22:09)
[2017-11-16] MEDS: Acetylcysteine 10% 2 ML INHSOL IH SCH ×4 (04:14→22:10)
[2017-11-16 04:20] LABS: BUN/Creatinine Ratio 36 (6-26); Blood Urea Nitrogen 38 mg/dL (8-23); Calcium 7.9 mg/dL (8.6-10.3); Carbon Dioxide 25 mEq/L (23-29); Chloride 103 mEq/L (98-107); Glucose 98 mg/dL (70-105); Osmolality,Calculated 285 (280-300); Potassium 3.7 mEq/L (3.5-5.1); Sodium 133 mEq/L (136-145); eGFR For African Americans > 60 (> 60); eGFR For Non-African Americans 50 (> 60)
[2017-11-16 04:48] LABS: Hypersegmented Neutrophils Present (Not Present); Platelet Estimate Decreased (Normal)
[2017-11-16] MEDS ORDERED: Aminoglycoside Consult 1 EACH MC ONE (08:29)
[2017-11-16] MEDS: Multivit/Ca/Min/Fe/FA 1 TAB TABLET PO SCH (09:37)
[2017-11-16] MEDS: (Febuxostat [Uloric] 40 MG) PO SCH (09:37)
[2017-11-16] MEDS: Lactobacillus 1 EACH CAP.SPRINK PO SCH ×2 (09:37→20:28)
[2017-11-16] MEDS: Pantoprazole 40 MG VIAL IVP SCH (09:37)
[2017-11-16] MEDS: Silvasorb 44.4 ML TUBE TP SCH (09:37)
[2017-11-16] MEDS: Gentamicin 70 MG in 0.9 % Sodium Chloride 100 ML IVPB SCH (09:37)
[2017-11-16] MEDS: Loratadine 10 MG TABLET PO SCH (09:37)
[2017-11-16] MEDS: Fluticasone Propionate Nasal 50 MCG/SPRAY BOTTLE NS SCH (09:37)
[2017-11-16] MEDS: Cholecalciferol (D-3) 1,000 UNIT TABLET PO SCH (09:37)
[2017-11-16] MEDS: Cyanocobalamin (B-12) 1,000 MCG TABLET PO SCH (09:37)
[2017-11-16] MEDS: (Omega-3/Dha/Epa/Fish Oil [Fish Oil 1,000 Mg Softgel]) PO SCH ×2 (09:37→22:56)
[2017-11-16] MEDS: Aspirin Enteric Coated 81 MG Tablet PO SCH (09:37)
[2017-11-16] MEDS ORDERED: Dextrose Gel 15 GM/37.5 ML TUBE PO PRN ×2 (11:28)
[2017-11-16] MEDS ORDERED: D5% in Water 1,000 ML IVC PRN (11:28)
[2017-11-16] MEDS ORDERED: *HR* Dextrose 50 % in Water (Syg) 50 ML SYRINGE IVP PRN (11:28)
--- NOTE | 2017-11-16 11:30 | Internal Med Progress Note ---
Date of Encounter: 11/16/17 Time of Encounter: 11:26 - Assessment and plan (1) Chronic diarrhea Current Visit: Yes Status: Acute Assessment and plan: Patient having diarrhea for 3 weeks now. Stool for C. difficile and GI panel negative. Loose bowel movement today. Continue lactobacillus. Will add PRN imodium. Tolerating diet well; will discontinue IVF. (2) Dehydration Current Visit: Yes Status: Acute Assessment and plan: Patient presenting with dehydration and mild acute kidney injury related to acute on chronic diarrhea. Looks to now be resolved. Tolerating good diet. Discontinue IVF. Recheck labwork in AM. (3) Generalized weakness Current Visit: Yes Status: Acute Assessment and plan: Likely secondary to dehydration. PT/OT/SW consulted. We will set up home health at discharge. (4) Acute kidney injury Current Visit: Yes Status: Resolved Assessment and plan: Resolved. Tolerating good diet now. Discontinue IVF. Recheck BMP in AM. (5) Bronchitis Current Visit: Yes Status: Chronic Assessment and plan: History of COPD. Patient has chronic cough. Likely from chronic bronchitis. Some worsening cough overnight with fever this AM; will obtain repeat CXR to rule out pneumonia. Continue scheduled duonebs and albuterol nebs PRN. Continue chest PT and mucomyst inhaled with nebs. Continue claritin and mucinex. Continue home medications. Follow up with pulmonology outpatient after discharge. (6) HLD (hyperlipidemia) Current Visit: Yes Status: Chronic Assessment and plan: Continue home zocor. Qualifiers: Hyperlipidemia type: pure hypercholesterolemia Qualified Code(s): E78.00 - Pure hypercholesterolemia, unspecified; E78.0 - Pure hypercholesterolemia (7) HTN (hypertension) Current Visit: Yes Status: Chronic Assessment and plan: Patient still slightly hypotensive. Tolerating good diet now. Discontinue IVF today. Hold antihypertensives for now. Qualifiers: Hypertension type: essential hypertension Qualified Code(s): I10 - Essential (primary) hypertension (8) CHF (congestive heart failure) Current Visit: Yes Status: Chronic Assessment and plan: Patient reports history of congestive heart failure. 2-D echocardiogram done earlier this month showed normal EF with indeterminate diastolic dysfunction. Will hold Lasix for now as patient is dehydrated. No signs of acute CHF exacerbation at this time. IVF discontinued today. Qualifiers: Heart failure type: diastolic Heart failure chronicity: chronic Qualified Code(s): I50.32 - Chronic diastolic (congestive) heart failure (9) Acute cystitis with hematuria Current Visit: Yes Status: Acute Assessment and plan: She has a chronic history of UTIs. On long-term macrobid. Hold macrobid. Continue gentamicin, given multiple allergies. Urine culture with Klebsiella senstive to gentamicin. Consulted pharmacy for gentamicin dosing. Spoke with pharmacist about possible discharge home on PO augmentin. (10) Type II diabetes mellitus with hypoglycemia Current Visit: Yes Status: Acute Assessment and plan: Hypoglycemia resolved. Continue hypoglycemia protocol. Transition to regular diet today. Continue accuchecks. Will add low dose SSI today as blood glucose trending up. 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 Chronic issue. Wound care consulted; appreciate their recommendations. Qualifiers: Venous stasis ulcer site: other part of lower leg Varicose vein presence: unspecified whether present Laterality: right Non-pressure ulcer stage: unspecified non-pressure ulcer stage Qualified Code(s): I83.018 - Varicose veins of right lower extremity with ulcer other part of lower leg; L97.819 - Non -pressure chronic ulcer of other part of right lower leg with unspecified severity (12) DVT prophylaxis Current Visit: Yes Status: Acute Assessment and plan: Patient has prior history of lower extremity venous thrombosis. Continue home xarelto. - Time Spent With Patient Total time spent is greater than 50% in coordination of care (as documented) at patient's floor/unit and/or counseling patient: less than 15 minutes - Subjective Interval history: Patient had no acute events overnight. Nursing staff reports increased coughing this AM with a fever. Patient states that she is doing well. No coughing in room during my exam. She is on room air. Nursing staff reports that she still has loose stool. Family in room states that she looks better. She now has good PO intake. She denies nausea and vomiting at this time. Blood glucose now improved. She denies chest pain, SOB, and chills. She has no other complaints at this time. - Constitutional Vitals: Temp Pulse Resp BP Pulse Ox 99.7 F H 121 16 95/60 95 11/16/17 11:21 11/16/17 11:21 11/16/17 11:21 11/16/17 11:21 11/16/17 11:21 General appearance: Present: cooperative, A&O X 3, pleasant, no acute distress, answers questions appropriately - Respiratory Respiratory exam: Absent: accessory muscle use, rales, rhonchi, wheezes Additional comments: Normal WOB, coarse breath sounds bilaterally - Cardiovascular Cardiovascular exam: Present: RRR, +S1, +S2. Absent: diastolic murmur, gallop, rubs, systolic murmur Additional comments: No BLE edema - GI/Abdominal GI/Abdominal exam: Present: normal bowel sounds, soft. Absent: distended, hepatomegaly, mass, splenomegaly, tenderness - Psychiatric Psychiatric exam: Present: normal affect, normal mood. Absent: agitated, anxious, depressed - Skin Skin exam: Present: dry, intact, warm. Absent: cyanosis, rash Internal Medicine: Result - Labs CBC & Chem 7: 11/16/17 03:33 11/16/17 03:33 Labs: Short CBC 11/16/17 Range/Units 03:33 WBC 6.4 (4.3-11.1) K/mcL Hgb 8.8 L (11.5-15.4) g/dL Hct 27.0 L (35.3-44.9) % Plt Count 92 L (140-400) K/mcL Neutrophils # 5.7 (1.6-8.9) K/mcL BMP 11/16/17 03:33 Sodium 133 L Potassium 3.7 Chloride 103 Carbon Dioxide 25 BUN 38 H Creatinine 1.06 Glucose 98 Calcium 7.9 L - Impressions Impressions Chest X-Ray 11/16/17 11:04 IMPRESSION: Stable small left pleural effusion with overlying atelectasis versus pneumonia. D/ / Ash Castillo MD / Ash Castillo MD Interpreting Provider: Ash Castillo MD - VTE Documentation of Mechanical Device: Intermittent pneumatic compression device Contraindication No Overlap Therapy: Admin of oral Factor Xa Inhibitor Consult Discharge Plan - Plan Referrals: Hawa Patterson MD [Primary Care Provider] -
[2017-11-16] MEDS ORDERED: Hydrocortisone Rectal 2.5% CRM 28 GM TUBE RC PRN (12:57)
[2017-11-16] MEDS: Insulin LISPRO 300 UNITS/3 ML VIAL SQ SCH ×3 (13:20→22:56)
[2017-11-16] MEDS: *HR* Rivaroxaban 15 MG TABLET PO SCH (18:05)
[2017-11-17 02:09] LABS: Hematocrit 28.4 % (35.3-44.9); Hemoglobin 9.4 g/dL (11.5-15.4); Mean Corpuscular HGB Conc 33.1 g/dL (31.6-35.5); Mean Corpuscular Hemoglobin 28.5 pg (28.0-33.3); Mean Corpuscular Volume 86.1 fL (83.0-100.0); Mean Platelet Volume 10.2 fL (9.4-12.4); Monocytes # 0.1 K/mcL (0.0-1.3); Platelet Count 106 K/mcL (140-400); Red Cell Distribution Width 16.3 % (11.5-14.5)
[2017-11-17 02:27] LABS: BUN/Creatinine Ratio 32 (6-26); Blood Urea Nitrogen 31 mg/dL (8-23); Calcium 8.2 mg/dL (8.6-10.3); Carbon Dioxide 23 mEq/L (23-29); Chloride 102 mEq/L (98-107); Glucose 92 mg/dL (70-105); Osmolality,Calculated 280 (280-300); Potassium 4.1 mEq/L (3.5-5.1); Sodium 132 mEq/L (136-145); eGFR For African Americans > 60 (> 60); eGFR For Non-African Americans 55 (> 60)
[2017-11-17 03:34] LABS: Lymphocytes # 0.5 K/mcL (0.6-4.6); Lymphocytes % 7.3 %; Monocytes % 1.8 %; Neutrophils # 6.7 K/mcL (1.6-8.9); Platelet Estimate Slight Decrease (Normal); Segmented Neutrophils % 90.9 %
[2017-11-17] MEDS: Acetylcysteine 10% 2 ML INHSOL IH SCH ×4 (04:49→21:56)
[2017-11-17] MEDS: Ipratropium/Albuterol Neb 3 ML IH SCH ×4 (04:49→21:56)
[2017-11-17] MEDS: Insulin LISPRO 300 UNITS/3 ML VIAL SQ SCH ×4 (07:40→22:39)
[2017-11-17] MEDS ORDERED: Gentamicin 90 MG in 0.9 % Sodium Chloride 100 ML IVPB SCH (09:00)
[2017-11-17] MEDS: Aspirin Enteric Coated 81 MG Tablet PO SCH (09:56)
[2017-11-17] MEDS: Pantoprazole 40 MG VIAL IVP SCH (09:56)
[2017-11-17] MEDS: Acetaminophen 325 MG TABLET PO PRN (09:59)
[2017-11-17] MEDS: Fluticasone Propionate Nasal 50 MCG/SPRAY BOTTLE NS SCH (10:00)
[2017-11-17] MEDS: (Omega-3/Dha/Epa/Fish Oil [Fish Oil 1,000 Mg Softgel]) PO SCH ×2 (10:00→20:23)
[2017-11-17] MEDS: Lactobacillus 1 EACH CAP.SPRINK PO SCH ×2 (10:00→20:22)
[2017-11-17] MEDS: (Febuxostat [Uloric] 40 MG) PO SCH (10:00)
[2017-11-17] MEDS: Silvasorb 44.4 ML TUBE TP SCH ×2 (10:00→19:00)
[2017-11-17] MEDS: Loratadine 10 MG TABLET PO SCH (10:00)
[2017-11-17] MEDS: Cholecalciferol (D-3) 1,000 UNIT TABLET PO SCH (10:01)
[2017-11-17] MEDS: Cyanocobalamin (B-12) 1,000 MCG TABLET PO SCH (10:01)
[2017-11-17] MEDS: Multivit/Ca/Min/Fe/FA 1 TAB TABLET PO SCH (10:01)
--- NOTE | 2017-11-17 10:43 | Internal Med Progress Note ---
Date of Encounter: 11/17/17 Time of Encounter: 10:38 - Assessment and plan (1) Chronic diarrhea Current Visit: Yes Status: Acute Assessment and plan: Patient having diarrhea for 3 weeks now. Stool for C. difficile and GI panel negative. Loose bowel movements seem to be improving. Continue lactobacillus. Continue PRN imodium. Tolerating diet well. (2) Dehydration Current Visit: Yes Status: Resolved Assessment and plan: Patient presenting with dehydration and mild acute kidney injury related to acute on chronic diarrhea. Looks to now be resolved. Tolerating good diet. Recheck labwork in AM. (3) Generalized weakness Current Visit: Yes Status: Acute Assessment and plan: Likely secondary to dehydration. PT/OT/SW consulted. We will set up home health at discharge. (4) Acute kidney injury Current Visit: Yes Status: Resolved Assessment and plan: Resolved. Tolerating good diet now. Recheck BMP in AM. (5) Bronchitis Current Visit: Yes Status: Chronic Assessment and plan: History of COPD. Patient has chronic cough, looks somewhat worsened today. Now requiring 2L NC. CXR from yesterday showed small pleural effusion unchanged from previous, but with some overlying atelectasis vs pneumonia. I am less convinced that this is pneumonia. I will switch the gentamicin that we are using for UTI to unasyn to help cover pneumonia (pharmacist verified that she has had unasyn before without any allergic reaction). I will add IV solumedrol 40 mg Q8H for possible COPD exacerbation. Continue scheduled duonebs and albuterol nebs PRN. Continue chest PT and mucomyst inhaled with nebs. Continue claritin and mucinex. Will add robitussin DM PRN for cough. Continue home medications. Follow up with pulmonology outpatient after discharge, but may consider inpatient pulmonology consultation if no improvement with above measures. (6) Acute cystitis with hematuria Current Visit: Yes Status: Acute Assessment and plan: She has a chronic history of UTIs. On long-term macrobid. Hold macrobid. Discontinue gentamicin. Start unasyn as per above. Urine culture with Klebsiella senstive to unasyn. Consider discharge home on PO augmentin. (7) HLD (hyperlipidemia) Current Visit: Yes Status: Chronic Assessment and plan: Continue home zocor. Qualifiers: Hyperlipidemia type: pure hypercholesterolemia Qualified Code(s): E78.00 - Pure hypercholesterolemia, unspecified; E78.0 - Pure hypercholesterolemia (8) HTN (hypertension) Current Visit: Yes Status: Chronic Assessment and plan: Patient still slightly hypotensive. Tolerating good diet now. Hold antihypertensives for now. Monitor vitals closely. Qualifiers: Hypertension type: essential hypertension Qualified Code(s): I10 - Essential (primary) hypertension (9) CHF (congestive heart failure) Current Visit: Yes Status: Chronic Assessment and plan: Patient reports history of congestive heart failure. 2-D echocardiogram done earlier this month showed normal EF with indeterminate diastolic dysfunction. Will hold Lasix . No signs of acute CHF exacerbation at this time. Qualifiers: Heart failure type: diastolic Heart failure chronicity: chronic Qualified Code(s): I50.32 - Chronic diastolic (congestive) heart failure (10) Type II diabetes mellitus with hypoglycemia Current Visit: Yes Status: Chronic Assessment and plan: Hypoglycemia resolved. Continue hypoglycemia protocol. Continue accuchecks and SSI QID AC/HS. Qualifiers: Diabetes mellitus care home insulin use: unspecified care home insulin use status Diabetes mellitus complication detail: without coma Qualified Code(s) : E11.649 - Type 2 diabetes mellitus with hypoglycemia without coma (11) Venous stasis ulcer Current Visit: Yes Status: Acute Assessment and plan: RLE. Chronic issue. Wound care consulted; appreciate their recommendations. Qualifiers: Venous stasis ulcer site: other part of lower leg Varicose vein presence: unspecified whether present Laterality: right Non-pressure ulcer stage: unspecified non-pressure ulcer stage Qualified Code(s): I83.018 - Varicose veins of right lower extremity with ulcer other part of lower leg; L97.819 - Non -pressure chronic ulcer of other part of right lower leg with unspecified severity (12) DVT prophylaxis Current Visit: Yes Status: Acute Assessment and plan: Patient has prior history of lower extremity venous thrombosis. Continue home xarelto. - Time Spent With Patient Total time spent is greater than 50% in coordination of care (as documented) at patient's floor/unit and/or counseling patient: 25 - 35 minutes - Subjective Interval history: Patient had no acute events overnight. Patient and family report increased coughing. She is coughing up significant yellow phlegm. Patient states abdomen hurts from all the coughing. She is now on 2L NC. Nursing staff reports that she still has some loose stool. She denies nausea and vomiting at this time. She denies chest pain, SOB, and chills. She has no other complaints at this time. - Constitutional Vitals: Temp Pulse Resp BP Pulse Ox 98.8 F 94 16 101/58 98 11/17/17 06:30 11/17/17 06:30 11/17/17 10:11 11/17/17 06:30 11/17/17 10:11 General appearance: Present: cooperative, A&O X 3, pleasant, no acute distress, answers questions appropriately - Respiratory Respiratory exam: Absent: accessory muscle use, rales, rhonchi, wheezes Additional comments: Normal WOB, coarse breath sounds bilaterally, intermittent productive cough - Cardiovascular Cardiovascular exam: Present: RRR, +S1, +S2. Absent: diastolic murmur, gallop, rubs, systolic murmur Additional comments: No BLE edema - GI/Abdominal GI/Abdominal exam: Present: normal bowel sounds, soft, tenderness (mild TTP diffusely across abdomen). Absent: distended, hepatomegaly, mass, splenomegaly - Psychiatric Psychiatric exam: Present: normal affect, normal mood. Absent: agitated, anxious, depressed - Skin Skin exam: Present: dry, intact, warm. Absent: cyanosis, rash Internal Medicine: Result - Labs CBC & Chem 7: 11/17/17 00:53 11/17/17 00:53 Labs: Short CBC 11/17/17 Range/Units 00:53 WBC 7.4 (4.3-11.1) K/mcL Hgb 9.4 L (11.5-15.4) g/dL Hct 28.4 L (35.3-44.9) % Plt Count 106 L (140-400) K/mcL Neutrophils # 6.7 (1.6-8.9) K/mcL BMP 11/17/17 00:53 Sodium 132 L Potassium 4.1 Chloride 102 Carbon Dioxide 23 BUN 31 H Creatinine 0.97 Glucose 92 Calcium 8.2 L - Impressions Impressions Chest X-Ray 11/16/17 11:04 IMPRESSION: Stable small left pleural effusion with overlying atelectasis versus pneumonia. D/ / Ash Castillo MD / Ash Castillo MD Interpreting Provider: Ash Castillo MD - VTE Documentation of Mechanical Device: Intermittent pneumatic compression device Contraindication No Overlap Therapy: Admin of oral Factor Xa Inhibitor Consult Discharge Plan - Plan Referrals: Hawa Patterson MD [Primary Care Provider] -
[2017-11-17] MEDS: Ampicillin/Sulbactam 3,000 MG in 0.9 % Sodium Chloride Mini Bag 100 ML IVPB SCH ×4 (11:00→23:41)
[2017-11-17] MEDS: MethylPREDNISolone 40 MG/ML VIAL IVP SCH ×3 (11:09→23:41)
[2017-11-17] MEDS: *HR* Rivaroxaban 15 MG TABLET PO SCH (17:46)
[2017-11-17] MEDS: Ondansetron 4 MG/2 ML VIAL IVP PRN (20:22)
[2017-11-18 02:26] LABS: Hematocrit 27.4 % (35.3-44.9); Immature Granulocytes % 0.2 % (0-4); Lymphocytes # 0.5 K/mcL (0.6-4.6); Lymphocytes % 10.2 %; Mean Corpuscular HGB Conc 32.8 g/dL (31.6-35.5); Mean Corpuscular Hemoglobin 28.2 pg (28.0-33.3); Mean Corpuscular Volume 85.9 fL (83.0-100.0); Mean Platelet Volume 10.3 fL (9.4-12.4); Monocytes % 0.8 %; Platelet Count 105 K/mcL (140-400); Red Blood Count 3.19 M/mcL (3.82-4.97); Red Cell Distribution Width 16.2 % (11.5-14.5); Segmented Neutrophils % 88.8 %
[2017-11-18 02:29] LABS: Neutrophils # 4.4 K/mcL (1.6-8.9)
[2017-11-18 02:42] LABS: BUN/Creatinine Ratio 29 (6-26); Blood Urea Nitrogen 28 mg/dL (8-23); Calcium 8.1 mg/dL (8.6-10.3); Carbon Dioxide 25 mEq/L (23-29); Chloride 105 mEq/L (98-107); Glucose 263 mg/dL (70-105); Osmolality,Calculated 295 (280-300); Potassium 3.9 mEq/L (3.5-5.1); Sodium 135 mEq/L (136-145); eGFR For African Americans > 60 (> 60); eGFR For Non-African Americans 57 (> 60)
[2017-11-18 03:24] LABS: Platelet Estimate Decreased (Normal)
[2017-11-18] MEDS: Acetylcysteine 10% 2 ML INHSOL IH SCH ×2 (04:55→10:33)
[2017-11-18] MEDS: Ipratropium/Albuterol Neb 3 ML IH SCH ×4 (04:55→21:47)
[2017-11-18] MEDS: Ampicillin/Sulbactam 3,000 MG in 0.9 % Sodium Chloride Mini Bag 100 ML IVPB SCH ×3 (06:26→18:26)
[2017-11-18] MEDS: Insulin LISPRO 300 UNITS/3 ML VIAL SQ SCH ×3 (09:09→18:25)
[2017-11-18] MEDS: MethylPREDNISolone 40 MG/ML VIAL IVP SCH ×2 (09:10→15:16)
[2017-11-18] MEDS: Lactobacillus 1 EACH CAP.SPRINK PO SCH ×2 (09:12→21:16)
[2017-11-18] MEDS: Pantoprazole 40 MG VIAL IVP SCH (09:12)
[2017-11-18] MEDS: Multivit/Ca/Min/Fe/FA 1 TAB TABLET PO SCH (09:12)
[2017-11-18] MEDS: Cholecalciferol (D-3) 1,000 UNIT TABLET PO SCH (09:12)
[2017-11-18] MEDS: Loratadine 10 MG TABLET PO SCH (09:12)
[2017-11-18] MEDS: Aspirin Enteric Coated 81 MG Tablet PO SCH (09:12)
[2017-11-18] MEDS: Cyanocobalamin (B-12) 1,000 MCG TABLET PO SCH (09:12)
[2017-11-18] MEDS: Fluticasone Propionate Nasal 50 MCG/SPRAY BOTTLE NS SCH (09:13)
[2017-11-18] MEDS: (Omega-3/Dha/Epa/Fish Oil [Fish Oil 1,000 Mg Softgel]) PO SCH (09:13)
[2017-11-18] MEDS: (Febuxostat [Uloric] 40 MG) PO SCH (09:13)
--- NOTE | 2017-11-18 10:12 | Internal Med Progress Note ---
Date of Encounter: 11/18/17 Time of Encounter: 10:10 - Assessment and plan (1) Chronic diarrhea Current Visit: Yes Status: Acute Assessment and plan: Patient having diarrhea for 3 weeks now. Stool for C. difficile and GI panel negative. Loose bowel movements seem to be improving. Continue lactobacillus. Continue PRN imodium. Tolerating diet well. (2) Dehydration Current Visit: Yes Status: Resolved Assessment and plan: Patient presenting with dehydration and mild acute kidney injury related to acute on chronic diarrhea. Looks to now be resolved. Tolerating good diet. Recheck labwork in AM. (3) Generalized weakness Current Visit: Yes Status: Acute Assessment and plan: Likely secondary to dehydration. PT/OT/SW consulted. We will set up home health at discharge. (4) Acute kidney injury Current Visit: Yes Status: Resolved Assessment and plan: Resolved. Tolerating good diet now. Recheck BMP in AM. (5) Bronchitis Current Visit: Yes Status: Chronic Assessment and plan: History of COPD. Patient has chronic cough, looks much better today. Now on room air. CXR showed small pleural effusion unchanged from previous, but with some overlying atelectasis vs pneumonia. I am less convinced that this is pneumonia. Continue unasyn. Continue IV solumedrol 40 mg Q8H for COPD exacerbation; plan for possible discharge home with taper tomorrow. Palliative care consulted at the request of family. Continue scheduled duonebs and albuterol nebs PRN. Continue chest PT and mucomyst inhaled with nebs. Continue claritin and mucinex. Continue robitussin DM PRN for cough. Continue home medications. Follow up with pulmonology outpatient after discharge. (6) Acute cystitis with hematuria Current Visit: Yes Status: Acute Assessment and plan: She has a chronic history of UTIs. On long-term macrobid. Hold macrobid. Continue unasyn as per above. Urine culture with Klebsiella senstive to unasyn. Consider discharge home on PO augmentin. (7) HLD (hyperlipidemia) Current Visit: Yes Status: Chronic Assessment and plan: Continue home zocor. Qualifiers: Hyperlipidemia type: pure hypercholesterolemia Qualified Code(s): E78.00 - Pure hypercholesterolemia, unspecified; E78.0 - Pure hypercholesterolemia (8) HTN (hypertension) Current Visit: Yes Status: Chronic Assessment and plan: Patient still slightly hypotensive. Tolerating good diet now. Hold antihypertensives for now. Monitor vitals closely. Qualifiers: Hypertension type: essential hypertension Qualified Code(s): I10 - Essential (primary) hypertension (9) CHF (congestive heart failure) Current Visit: Yes Status: Chronic Assessment and plan: Patient reports history of congestive heart failure. 2-D echocardiogram done earlier this month showed normal EF with indeterminate diastolic dysfunction. Will hold Lasix for now. No signs of acute CHF exacerbation at this time. Qualifiers: Heart failure type: diastolic Heart failure chronicity: chronic Qualified Code(s): I50.32 - Chronic diastolic (congestive) heart failure (10) Type II diabetes mellitus with hypoglycemia Current Visit: Yes Status: Chronic Assessment and plan: Hypoglycemia resolved. Continue hypoglycemia protocol. Continue accuchecks and SSI QID AC/HS. Qualifiers: Diabetes mellitus custodial insulin use: unspecified custodial insulin use status Diabetes mellitus complication detail: without coma Qualified Code(s) : E11.649 - Type 2 diabetes mellitus with hypoglycemia without coma (11) Venous stasis ulcer Current Visit: Yes Status: Acute Assessment and plan: RLE. Chronic issue. Wound care consulted; appreciate their recommendations. Qualifiers: Venous stasis ulcer site: other part of lower leg Varicose vein presence: unspecified whether present Laterality: right Non-pressure ulcer stage: unspecified non-pressure ulcer stage Qualified Code(s): I83.018 - Varicose veins of right lower extremity with ulcer other part of lower leg; L97.819 - Non -pressure chronic ulcer of other part of right lower leg with unspecified severity (12) DVT prophylaxis Current Visit: Yes Status: Acute Assessment and plan: Patient has prior history of lower extremity venous thrombosis. Continue home xarelto. - Time Spent With Patient Total time spent is greater than 50% in coordination of care (as documented) at patient's floor/unit and/or counseling patient: less than 15 minutes - Subjective Interval history: Patient had no acute events overnight. Patient and family state that she is much better today. Cough is greatly improved. She is now on room air. She denies nausea and vomiting at this time. She denies chest pain, SOB, and chills. She has no other complaints at this time. - Constitutional Vitals: Temp Pulse Resp BP Pulse Ox 97.8 F 94 18 95/65 94 11/18/17 06:47 11/18/17 06:47 11/18/17 06:47 11/18/17 06:47 11/18/17 09:26 General appearance: Present: cooperative, A&O X 3, pleasant, no acute distress, answers questions appropriately - Respiratory Respiratory exam: Present: CTAB. Absent: accessory muscle use, rales, rhonchi, wheezes Additional comments: Normal WOB - Cardiovascular Cardiovascular exam: Present: RRR, +S1, +S2. Absent: diastolic murmur, gallop, rubs, systolic murmur Additional comments: No BLE edema - GI/Abdominal GI/Abdominal exam: Present: normal bowel sounds, soft. Absent: distended, hepatomegaly, mass, splenomegaly, tenderness - Psychiatric Psychiatric exam: Present: normal affect, normal mood. Absent: agitated, anxious, depressed - Skin Skin exam: Present: dry, intact, warm. Absent: cyanosis, rash Internal Medicine: Result - Labs CBC & Chem 7: 11/18/17 02:07 11/18/17 02:07 Labs: Short CBC 11/18/17 Range/Units 02:07 WBC 4.9 (4.3-11.1) K/mcL Hgb 9.0 L (11.5-15.4) g/dL Hct 27.4 L (35.3-44.9) % Plt Count 105 L (140-400) K/mcL Neutrophils # 4.4 (1.6-8.9) K/mcL BMP 11/18/17 02:07 Sodium 135 L Potassium 3.9 Chloride 105 Carbon Dioxide 25 BUN 28 H Creatinine 0.95 Glucose 263 H Calcium 8.1 L - VTE Documentation of Mechanical Device: Intermittent pneumatic compression device Contraindication No Overlap Therapy: Admin of oral Factor Xa Inhibitor Consult Discharge Plan - Plan Referrals: Hawa Patterson MD [Primary Care Provider] -
[2017-11-18] MEDS: *HR* Rivaroxaban 15 MG TABLET PO SCH (18:26)
[2017-11-18] MEDS ORDERED: Insulin LISPRO 300 UNITS/3 ML VIAL SQ SCH (21:00)
[2017-11-18] MEDS: Silvasorb 44.4 ML TUBE TP SCH (21:21)
[2017-11-19 02:39] LABS: Basophils % 0.1 %; Hematocrit 28.7 % (35.3-44.9); Hemoglobin 9.3 g/dL (11.5-15.4); Immature Granulocytes % 0.5 % (0-4); Lymphocytes # 0.6 K/mcL (0.6-4.6); Lymphocytes % 7.1 %; Mean Corpuscular HGB Conc 32.4 g/dL (31.6-35.5); Mean Corpuscular Volume 86.4 fL (83.0-100.0); Mean Platelet Volume 10.2 fL (9.4-12.4); Monocytes # 0.3 K/mcL (0.0-1.3); Monocytes % 3.2 %; Neutrophils # 7.6 K/mcL (1.6-8.9); Platelet Count 149 K/mcL (140-400); Red Blood Count 3.32 M/mcL (3.82-4.97); Red Cell Distribution Width 16.3 % (11.5-14.5); Segmented Neutrophils % 89.1 %
[2017-11-19 02:54] LABS: Calcium 8.5 mg/dL (8.6-10.3); Potassium 3.9 mEq/L (3.5-5.1)
[2017-11-19] MEDS: MethylPREDNISolone 40 MG/ML VIAL IVP SCH ×2 (03:48→08:30)
[2017-11-19] MEDS: Ampicillin/Sulbactam 3,000 MG in 0.9 % Sodium Chloride Mini Bag 100 ML IVPB SCH ×3 (03:48→12:20)
[2017-11-19] MEDS: Ipratropium/Albuterol Neb 3 ML IH SCH ×3 (04:19→16:10)
[2017-11-19] MEDS: (Omega-3/Dha/Epa/Fish Oil [Fish Oil 1,000 Mg Softgel]) PO SCH ×2 (06:29→08:31)
[2017-11-19] MEDS: Pantoprazole 40 MG VIAL IVP SCH (08:30)
[2017-11-19] MEDS: Cyanocobalamin (B-12) 1,000 MCG TABLET PO SCH (08:30)
[2017-11-19] MEDS: Insulin LISPRO 300 UNITS/3 ML VIAL SQ SCH (08:30)
[2017-11-19] MEDS: (Febuxostat [Uloric] 40 MG) PO SCH (08:31)
[2017-11-19] MEDS: Cholecalciferol (D-3) 1,000 UNIT TABLET PO SCH (08:31)
[2017-11-19] MEDS: Aspirin Enteric Coated 81 MG Tablet PO SCH (08:31)
[2017-11-19] MEDS: Loratadine 10 MG TABLET PO SCH (08:31)
[2017-11-19] MEDS: Lactobacillus 1 EACH CAP.SPRINK PO SCH (08:31)
[2017-11-19] MEDS: Multivit/Ca/Min/Fe/FA 1 TAB TABLET PO SCH (08:31)
[2017-11-19] MEDS: Fluticasone Propionate Nasal 50 MCG/SPRAY BOTTLE NS SCH (08:34)
[2017-11-19] MEDS ORDERED: Insulin LISPRO 300 UNITS/3 ML VIAL SQ SCH ×2 (11:30→21:00)
[2017-11-19 11:57] VITALS: BP 114/73
--- NOTE | 2017-11-19 12:26 | Palliative - Consult Note ---
<Johnnie Doll - Last Filed: 11/19/17 12:18> Date of Encounter: 11/19/17 Time of Encounter: 09:30 - Assessment and Plan (1) Dehydration Current Visit: Yes Status: Resolved Assessment and plan: Secondary to GI loss in setting of acute diarrhea Likely secondary to Antibiotic use Currently resolved, on appropriate stool regimen (2) Diarrhea Current Visit: Yes Status: Resolved Assessment and plan: Diarrhea, likely related to use of antibiotics On appropriate stool regiment including probiotic No acute complaints at this time Qualifiers: Diarrhea type: presumed infectious Qualified Code(s): R19.7 - Diarrhea, unspecified (3) Chronic venous hypertension w/ulcer and inflammation involv right side Current Visit: Yes Status: Chronic Assessment and plan: Chronic ulcers managed by podiatry and PCP (4) Generalized weakness Current Visit: Yes Status: Acute Assessment and plan: Secondary to overall poor health Patient has significant deconditioning PT/OT will likely play substantial role in recovery (5) Counseling regarding goals of care Current Visit: Yes Status: Acute Assessment and plan: Goals of therapy were discussed with the family. According to the daughter, who is the power of real estate attorney, the patient's main concern is having the appropriate resources at home to help her when she leaves. They both understand that the patient's urinalysis is not extremely poor such that she will likely within the next 6 months. They initially asked for hospice because they felt that maybe that would give him resources at home. Upon further discussion, the patient feels that her symptoms have primarily been managed very well with her primary care as well as multiple subspecialists that she does see. While in the hospital, she has had resolution of her diarrhea as well as her cough and shortness of breath that were associated with it. Now, her daughter is looking forward to the future and is concerned about getting health equipment at home. She is not sure what she is able to get through her health insurance or what resources may be available. CODE STATUS was addressed with the patient and she remains DNR CCA which is appropriate for her current condition. It was discussed that hospice would be inappropriate for this patient at this time due to her overall general health which does not appear to be in progressive decline at this time. QUESTIONS were answered. We will speak with social work to see what resources we may have for this patient. Palliative-CN HPI - Data of Consult Patient: new to practice Consult date: 11/19/17 Requesting Physician: Sheba De Dios MD Primary Care Provider: Hawa Patterson - Consult Narrative Palliative Care/Comfort Measures: Palliative care Reason for consult: "Family requests palliative consult for hospice" History of present illness: Ms. Sanders is a 82 year old female with a copy medical history including asthma, COPD, CVA, diabetes mellitus type 2, hypertension who presented to the ER with intractable diarrhea and UTI symptoms. The patient was recently treated at [facility] initially for ulcers on her lower extremities, however but also with an apparent pneumonia. At that time she was given antibiotics, however she soon developed intractable diarrhea that has been going on since that time. She does have issues with nausea as well, however she has had no vomiting. In addition to this, she has had a chronic cough which seems to be unremitting. At the time of admission, patient was found to be severely dehydrated with mild acute kidney injury likely related to GI loss. At this time the patient is saying that she is feeling much better with significantly decreased diarrhea and that her cough is improved greatly. She does say that she still remains extremely weak, and she does not feel that she will be able to complete her ADLs well. She is accompanied by her daughter, who does say that she has a lot of concerns about not being able to take care of her Elliott at home. She says that she does not have the right equipment, and she is concerned that when she comes home she will be unable to provide the needs for her to keep her well. They say that they do not feel her health is declining or that it is in jeopardy , but mainly that they do not have the resources needed to care for her appropriately. 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 - Social History Smoking Status: Never smoker Smokeless Tobacco Status: No Alcohol use: none Drug use: none - Family History Father Family Member Ethnicity: Non- Hx Family Cancer: Yes (Leukemia) Mother Family Member Ethnicity: Non- Living Status: Hx Family Cancer: Yes (Lung) Brother Family Member Ethnicity: Non- Living Status: Hx Family Respiratory Disorders: Yes (COPD/Emphysema) Hx Family Cancer: Yes (Lung) Sister Family Member Ethnicity: Non- Living Status: Still Living Hx Family Cardiac Disorders: No Hx Family Respiratory Disorders: Yes (COPD/Emphysema) Hx Family Cancer: Yes (Lung) Hx Family GI Disorders: No Hx Family Endocrine Disorder: No Hx Family Neuromuscular Disorders: No Hx Family Neurologic Disorders: No Hx Family HEENT Disorders: No Hx Family Autoimmune Disorders: No Medications and Allergies Ascorbate Calcium/Bioflavonoid [Shruthi-C 500 mg Tablet] 1 each PO DAILY 01/29/17 [History] Aspirin [Lo-Dose Aspirin EC] 81 mg PO DAILY 01/29/17 [History] Atenolol/Chlorthalidone [Tenoretic 50 Tablet] 1 each PO DAILY 01/29/17 [History] Ergocalciferol (VITAMIN D2) [Vitamin D2] 2,000 unit PO DAILY 01/29/17 [History] Febuxostat [Uloric] 40 mg PO DAILY 01/29/17 [History] Furosemide [Lasix] 20 mg PO QPM 01/29/17 [History] Furosemide [Lasix] 40 mg PO QAM 01/29/17 [History] Losartan Potassium [Cozaar] 25 mg PO DAILY 01/29/17 [History] Montelukast [Singulair] 10 mg PO DAILY 01/29/17 [History] Multivitamin [Multivitamins] 1 each PO AD 01/29/17 [History] [place]-3/Dha/Epa/Fish Oil [Fish Oil 1,000 mg Softgel] 1 each PO BID 01/29/17 [ History] Potassium Chloride [K-Tab ER] 20 meq PO TID 01/29/17 [History] Simvastatin [Zocor] 20 mg PO HS 01/29/17 [History] Vitamin E (Dl,Tocopheryl Acet) [Vitamin E] 400 unit PO DAILY 01/29/17 [History] Fluticasone Propionate Nasal [Flonase] 1 spray IN DAILY 05/18/17 [History] Ipratropium/Albuterol Neb [Duoneb] 3 ml IH Q6HR 08/21/17 [History] Nitrofurantoin Macrocrystal [Nitrofurantoin] 100 mg PO DAILY 08/21/17 [History] Pentoxifylline [TRENtal] 400 mg PO DAILY 08/21/17 [History] Rivaroxaban [Xarelto] 20 mg PO DAILY 08/21/17 [History] Cyanocobalamin (Vitamin B-12) [Vitamin B-12] 100 mcg PO DAILY 10/26/17 [History] 3 Allergy/AdvReac Type Severity Reaction Status Date / Time cefuroxime Allergy Rash Verified 11/13/17 14:43 cephalexin [From Keflex] Allergy Rash Verified 11/13/17 14:43 doxycycline Allergy Nausea Verified 11/16/17 11:06 gabapentin Allergy Rash Verified 11/13/17 14:43 levofloxacin [From Levaquin] Allergy see comment Verified 11/16/17 11:06 Penicillins [PCN] Allergy See Verified 11/16/17 11:06 Comments Sulfa (Sulfonamide Allergy Rash Verified 11/13/17 14:43 Antibiotics) Review of systems: Constitutional: Denies fevers, chills, weight loss. Admits to generalized fatigue Head/Neck: Denies HUBER, neck stiffness EENT: Denies vision changes/blurriness, rhinorrhea, congestion, sore throat CVS: Denies chest pain, palpitations. Admits to LE edema, orthopnea, some VINCENT Pulm: Admits to chronic cough with sputum production, SOB GI: Admits to chronic diarrhea which seems to have improved over hospital course : Denies dysuria, increased frequency, urgency, hematuria Heme: Denies ease of bleeding or bruising MSK: Denies joint pain, limited ROM Skin: Chronic ulceration in the right lower extremity associated with significant edema Neuro: Denies HUBER, paresthesias, focal deficits, ataxia Palliative Care-Exam - Constitutional Vitals: Temp Pulse Resp BP Pulse Ox 97.7 F 90 16 114/73 95 11/19/17 11:49 11/19/17 11:49 11/19/17 11:49 11/19/17 11:49 11/19/17 11:49 Exam: Gen: Vitals noted. No acute distress. HEENT: PERRL/EOMI, oropharynx clear, Normocephalic, atraumatic Neck: Supple. No adenopathy. Cardiac: Heart sounds faint, RRR, no murmur, +S1/S2 Pulmonary: There are bibasilar rales, right greater than left Abdomen: very mildly distended, however it is soft, nontender, BS noted, no guarding Back: Nontender throughout. MSK: ROM intact, no joint swelling noted Extremities: R: MAXIMINO wrap applied to LE below the knee, 2-3+ pitting edema above MAXIMINO with tenderness to light palpation which is chronic, L: trace edema in LLE Neuro: A&Ox3, moves all extremities, no focal deficits Psych: Appropriate mood and behavior Internal Medicine - CN: Reslt - Labs CBC & Chem 7: 11/19/17 01:54 11/19/17 01:54 Labs: Short CBC 11/19/17 Range/Units 01:54 WBC 8.5 D (4.3-11.1) K/mcL Hgb 9.3 L (11.5-15.4) g/dL Hct 28.7 L (35.3-44.9) % Plt Count 149 (140-400) K/mcL Neutrophils # 7.6 (1.6-8.9) K/mcL BMP 11/19/17 01:54 Sodium 136 Potassium 3.9 Chloride 103 Carbon Dioxide 24 BUN 34 H Creatinine 1.10 Glucose 292 H Calcium 8.5 L Consult Discharge Plan - Plan Referrals: Hawa Patterson MD [Primary Care Provider] - Palliative Quality Palliative Quality: Screen for Code Status: Yes, Screen for Goals of Care: Yes, Screen for Pain: Yes, If Pain Regimen Started, Initiate Bowel Regimen: Yes, Screen for Nausea/Vomitting: Yes Code Status: 11/16/17 09:54 DNR [Resuscitation Status: Active] [RES] Routine Comment: Resuscitation Status: DNR-Comfort Care-Arrest <Santhosh Ventura - Last Filed: 11/19/17 12:52> Date of Encounter: 11/19/17 Palliative-CN HPI - Data of Consult Requesting Physician: Sheba De Dios MD Primary Care Provider: Hawa Patterson - Consult Narrative History of present illness: Ms. Sanders is a 82 year old female CC: Sheba De Dios MD Palliative Care-Exam - Constitutional Vitals: Temp Pulse Resp BP Pulse Ox 97.7 F 90 16 114/73 95 11/19/17 11:49 11/19/17 11:49 11/19/17 11:49 11/19/17 11:49 11/19/17 11:49 Internal Medicine - CN: Reslt - Labs CBC & Chem 7: 11/19/17 01:54 11/19/17 01:54 Labs: Short CBC 11/19/17 Range/Units 01:54 WBC 8.5 D (4.3-11.1) K/mcL Hgb 9.3 L (11.5-15.4) g/dL Hct 28.7 L (35.3-44.9) % Plt Count 149 (140-400) K/mcL Neutrophils # 7.6 (1.6-8.9) K/mcL BMP 11/19/17 01:54 Sodium 136 Potassium 3.9 Chloride 103 Carbon Dioxide 24 BUN 34 H Creatinine 1.10 Glucose 292 H Calcium 8.5 L - Attending Attestation I examined this patient and my medical decision-making was reviewed with the Resident Physician. I agree with the documented findings, disposition and treatment plan as described except to the extent set forth below. At this time I believe the patient is not appropriate for hospice and in addition the patient does not wish to have hospice. Already noted in the resident's note we will work with social work to see what other resources are available for the patient at home. Palliative Quality Code Status: 11/16/17 09:54 DNR [Resuscitation Status: Active] [RES] Routine Comment: Resuscitation Status: DNR-Comfort Care-Arrest
--- NOTE | 2017-11-19 13:30 | Discharge Summary ---
- NOTES TO OUTPATIENT PROVIDER Notes to Outpatient Provider: Follow up with PCP in 2-3 days after discharge. Recheck BMP and CBC at that time. Follow up with mechanical engineering advisor in 1 week. Orders not resulted at time of discharge: Pending orders 11/20/17 04:00 Basic Metabolic Panel AM 0400 CBC [Complete Blood Count] [HEME] AM 0400 Date of Encounter: 11/19/17 Time of Encounter: 13:27 - Discharge Diagnosis (1) Diarrhea Priority: Primary Status: Resolved Qualifiers: Diarrhea type: presumed infectious Qualified Code(s): R19.7 - Diarrhea, unspecified (2) Chronic venous hypertension w/ulcer and inflammation involv right side Priority: Secondary Status: Chronic (3) Generalized weakness Priority: Secondary Status: Acute (4) Dehydration Priority: Secondary Status: Resolved (5) Counseling regarding goals of care Priority: Secondary Status: Acute (6) Acute cystitis with hematuria Priority: Secondary Status: Acute (7) Venous stasis ulcer Priority: Secondary Status: Chronic Qualifiers: Venous stasis ulcer site: other part of lower leg Varicose vein presence: unspecified whether present Laterality: right Non-pressure ulcer stage: unspecified non-pressure ulcer stage Qualified Code(s): I83.018 - Varicose veins of right lower extremity with ulcer other part of lower leg; L97.819 - Non -pressure chronic ulcer of other part of right lower leg with unspecified severity (8) Bronchitis Priority: Secondary Status: Chronic (9) CHF (congestive heart failure) Priority: Secondary Status: Chronic Qualifiers: Heart failure type: diastolic Heart failure chronicity: chronic Qualified Code(s): I50.32 - Chronic diastolic (congestive) heart failure (10) HLD (hyperlipidemia) Priority: Secondary Status: Chronic Qualifiers: Hyperlipidemia type: pure hypercholesterolemia Qualified Code(s): E78.00 - Pure hypercholesterolemia, unspecified; E78.0 - Pure hypercholesterolemia (11) HTN (hypertension) Priority: Secondary Status: Chronic Qualifiers: Hypertension type: essential hypertension Qualified Code(s): I10 - Essential (primary) hypertension (12) Type II diabetes mellitus with hypoglycemia Priority: Secondary Status: Chronic Qualifiers: Diabetes mellitus chcf insulin use: unspecified chcf insulin use status Diabetes mellitus complication detail: without coma Qualified Code(s) : E11.649 - Type 2 diabetes mellitus with hypoglycemia without coma (13) Acute kidney injury Priority: Secondary Status: Resolved (14) COPD exacerbation Priority: Secondary Status: Acute Hospital course: Ms. Sanders is a 82 year old female admitted for diarrhea, dehydration, chronic cough, and acute cystitis with hematuria. Patient was admitted to general medical floor. She was started on IV gentamicin for UTI given her multiple antibiotic allergies. Pharmacy was consulted and they verified her allergies; she has actually taken many of the antibiotics on her allergy list. Urine culture grew out Klebsiella sensitive to many antibiotics. Stool panel was completely negative, and her diarrhea may be related to antibiotics. Diarrhea resolved with probiotic and PRN imodium. Patient was hydrated and felt much better, but chronic cough persisted. Repeat CXR showed some atelectasis but cannot rule out pneumonia. I was not too convinced that she had pneumonia, but switched her to IV ampicillin. I also started to treat her for COPD exacerbation with IV solumedrol. She has had issues with COPD control for a while now, and follows up with mechanical engineering advisor Dr. Watson. She instantly started to improve with regards to her cough after starting steroids. Family requested hospice, and palliative care was consulted to speak with patient and family, although she is not really a hospice candidate. Palliative care agreed. Patient is adamant about going home today. I think that she is medically stable enough to discharge home with prednisone taper and 4 more days of PO augmentin. She is on room air without any respiratory issues now. Wound care saw patient and made dressing recommendations for RLE venous stasis ulcer. We will continue these recommendations at home with home health. Patient will follow up with PCP in 2-3 days after discharge. Repeat BMP and CBC can be checked at that time. She will follow up with mechanical engineering advisor in 1 week after discharge. SW was consulted to set up all home needs. Patient has met maximum benefit of this hospitalization and will be discharged home with home health in stable condition. Discharge discussed with: patient, family, nurse, social work - Time Spent with Patient Total time spent providing and/or coordinating discharge services: Greater than 30 minutes - Discharge Medications Prescriptions: GuaiFENesin/Dextromethorphan [Robitussin/Dm] 5 ml PO Q6HR PRN #200 ml PRN Reason: Cough Amoxicillin/Clavulanate [Augmentin] 875 mg PO BIDWM 4 Days #8 tablet Lactobacillus [Culturelle] 1 each PO BID 14 Days #28 cap.sprink predniSONE [PredniSONE] See Taper PO DAILY 15 Days #54 tablet Silvasorb 1 appl TP DAILY #1 tube Home Medications: Ascorbate Calcium/Bioflavonoid [Shruthi-C 500 mg Tablet] 1 each PO DAILY 01/29/17 [History] Aspirin [Lo-Dose Aspirin EC] 81 mg PO DAILY 01/29/17 [History] Ergocalciferol (VITAMIN D2) [Vitamin D2] 2,000 unit PO DAILY 01/29/17 [History] Febuxostat [Uloric] 40 mg PO DAILY 01/29/17 [History] Furosemide [Lasix] 40 mg PO QAM 01/29/17 [History] Losartan Potassium [Cozaar] 25 mg PO DAILY 01/29/17 [History] Montelukast [Singulair] 10 mg PO DAILY 01/29/17 [History] Multivitamin [Multivitamins] 1 each PO AD 01/29/17 [History] [place]-3/Dha/Epa/Fish Oil [Fish Oil 1,000 mg Softgel] 1 each PO BID 01/29/17 [ History] Potassium Chloride [K-Tab ER] 20 meq PO TID 01/29/17 [History] Simvastatin [Zocor] 20 mg PO HS 01/29/17 [History] Vitamin E (Dl,Tocopheryl Acet) [Vitamin E] 400 unit PO DAILY 01/29/17 [History] Fluticasone Propionate Nasal [Flonase] 1 spray IN DAILY 05/18/17 [History] Ipratropium/Albuterol Neb [Duoneb] 3 ml IH Q6HR 08/21/17 [History] Pentoxifylline [TRENtal] 400 mg PO DAILY 08/21/17 [History] Rivaroxaban [Xarelto] 20 mg PO DAILY 08/21/17 [History] Cyanocobalamin (Vitamin B-12) [Vitamin B-12] 100 mcg PO DAILY 10/26/17 [History] Amoxicillin/Clavulanate [Augmentin] 875 mg PO BIDWM 4 Days #8 tablet 11/19/17 [ Rx] GuaiFENesin/Dextromethorphan [Robitussin/Dm] 5 ml PO Q6HR PRN #200 ml 11/19/17 [ Rx] Lactobacillus [Culturelle] 1 each PO BID 14 Days #28 cap.sprink 11/19/17 [Rx] Silvasorb 1 appl TP DAILY #1 tube 11/19/17 [Rx] predniSONE [PredniSONE] See Taper PO DAILY 15 Days #54 tablet 11/19/17 [Rx] Allergies/Adverse Reactions: 3 Allergy/AdvReac Type Severity Reaction Status Date / Time cefuroxime Allergy Rash Verified 11/13/17 14:43 cephalexin [From Keflex] Allergy Rash Verified 11/13/17 14:43 doxycycline Allergy Nausea Verified 11/16/17 11:06 gabapentin Allergy Rash Verified 11/13/17 14:43 levofloxacin [From Levaquin] Allergy see comment Verified 11/16/17 11:06 Penicillins [PCN] Allergy See Verified 11/16/17 11:06 Comments Sulfa (Sulfonamide Allergy Rash Verified 11/13/17 14:43 Antibiotics) Date of admission: 11/14/17 12:01 Primary care physician: Hawa Patterson Consults: 11/15/17 09:45 Consult to [place] [CONS] Routine Reason for SW Consult: Set up home health with home PT/OT at discharge. 11/16/17 11:36 Consult to Respiratory Therapy [CONS] Routine Reason for Consult: Cough, COPD, wean off supplemental O2 Call Completed: No 11/17/17 16:42 Consult to Palliative Care [CONS] Routine Comment: Consulting Provider: Palliative Care Celeste Reason for Consult: family requesting hospice Call Completed: No 11/18/17 10:04 Consult to Diabetes Education [CONS] Stat Comment: Reason for Consult: Diabetic Diet Education Discharging clinician: Sanchez Ordonez Anticipated date of discharge: 11/19/17 - Constitutional Vitals: Temp Pulse Resp BP Pulse Ox 97.7 F 90 16 114/73 95 11/19/17 11:49 11/19/17 11:49 11/19/17 11:49 11/19/17 11:49 11/19/17 11:49 General appearance: Present: cooperative, A&O X 3, pleasant, no acute distress, answers questions appropriately - Respiratory Respiratory exam: Present: CTAB. Absent: accessory muscle use, rales, rhonchi, wheezes Additional comments: Normal WOB - Cardiovascular Cardiovascular exam: Present: gallop, RRR, +S1, +S2. Absent: diastolic murmur, rubs, systolic murmur Additional comments: No BLE edema - GI/Abdominal GI/Abdominal exam: Present: normal bowel sounds, soft. Absent: distended, hepatomegaly, mass, splenomegaly, tenderness - Psychiatric Psychiatric exam: Present: normal affect, normal mood. Absent: agitated, anxious, depressed - Skin Skin exam: Present: dry, intact, warm. Absent: cyanosis, rash - Patient Status Disposition: Home Health Service Condition: Good Overall status at discharge: patient is progressing back to baseline - Discharge Instructions Follow Up With: Hawa Patterson MD [Primary Care Provider] - Additional Instructions: Follow up with PCP in 2-3 days after discharge. Recheck BMP and CBC at that time. Follow up with mechanical engineering advisor in 1 week. - Diet and Activity Activity: resume usual activities as tolerated Diet: diabetic diet, low fat, low cholesterol, low salt diet, other (Cardiac Diet) - VTE Documentation of Mechanical Device: Intermittent pneumatic compression device Contraindication No Overlap Therapy: Admin of oral Factor Xa Inhibitor
--- NOTE | 2017-11-19 13:53 | Physician Discharge Referral ---
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 Priority: Secondary Status: Chronic (3) Generalized weakness Priority: Secondary Status: Acute (4) Dehydration Priority: Secondary Status: Resolved (5) Counseling regarding goals of care Priority: Secondary Status: Acute (6) Acute cystitis with hematuria Priority: Secondary Status: Acute (7) Venous stasis ulcer Priority: Secondary Status: Chronic (8) Bronchitis Priority: Secondary Status: Chronic (9) CHF (congestive heart failure) Priority: Secondary Status: Chronic (10) HLD (hyperlipidemia) Priority: Secondary Status: Chronic (11) HTN (hypertension) Priority: Secondary Status: Chronic (12) Type II diabetes mellitus with hypoglycemia Priority: Secondary Status: Chronic (13) Acute kidney injury Priority: Secondary Status: Resolved (14) COPD exacerbation Priority: Secondary Status: Acute - Respiratory Orders None Smoking Cessation: Smoking cessation has been advised. For more information, call the [employer] Tobacco Quit Line at 0-609-LFGH-NOW. - Dressing/Wound Care Site: RLE venous stasis ulcer dressing per wound care instructions. Silvasorb daily. - Diet/Nutrition Diet/Nutrition Orders: No Added Salt (RAISA), Cardiac, No Concentrated Sweets - Activity Activity: List: Per physical therapy - Services Needed Following services are medically necessary services: Nursing, Physical Therapy, Occupational Therapy, Med Social Work - Transfer Medications Prescriptions: GuaiFENesin/Dextromethorphan [Robitussin/Dm] 5 ml PO Q6HR PRN #200 ml PRN Reason: Cough Amoxicillin/Clavulanate [Augmentin] 875 mg PO BIDWM 4 Days #8 tablet Lactobacillus [Culturelle] 1 each PO BID 14 Days #28 cap.sprink predniSONE [PredniSONE] See Taper PO DAILY 15 Days #54 tablet Silvasorb 1 appl TP DAILY #1 tube Home Medications: Ascorbate Calcium/Bioflavonoid [Shruthi-C 500 mg Tablet] 1 each PO DAILY 01/29/17 [History] Aspirin [Lo-Dose Aspirin EC] 81 mg PO DAILY 01/29/17 [History] Ergocalciferol (VITAMIN D2) [Vitamin D2] 2,000 unit PO DAILY 01/29/17 [History] Febuxostat [Uloric] 40 mg PO DAILY 01/29/17 [History] Furosemide [Lasix] 40 mg PO QAM 01/29/17 [History] Losartan Potassium [Cozaar] 25 mg PO DAILY 01/29/17 [History] Montelukast [Singulair] 10 mg PO DAILY 01/29/17 [History] Multivitamin [Multivitamins] 1 each PO AD 01/29/17 [History] [place]-3/Dha/Epa/Fish Oil [Fish Oil 1,000 mg Softgel] 1 each PO BID 01/29/17 [ History] Potassium Chloride [K-Tab ER] 20 meq PO TID 01/29/17 [History] Simvastatin [Zocor] 20 mg PO HS 01/29/17 [History] Vitamin E (Dl,Tocopheryl Acet) [Vitamin E] 400 unit PO DAILY 01/29/17 [History] Fluticasone Propionate Nasal [Flonase] 1 spray IN DAILY 05/18/17 [History] Ipratropium/Albuterol Neb [Duoneb] 3 ml IH Q6HR 08/21/17 [History] Pentoxifylline [TRENtal] 400 mg PO DAILY 08/21/17 [History] Rivaroxaban [Xarelto] 20 mg PO DAILY 08/21/17 [History] Cyanocobalamin (Vitamin B-12) [Vitamin B-12] 100 mcg PO DAILY 10/26/17 [History] Amoxicillin/Clavulanate [Augmentin] 875 mg PO BIDWM 4 Days #8 tablet 11/19/17 [ Rx] GuaiFENesin/Dextromethorphan [Robitussin/Dm] 5 ml PO Q6HR PRN #200 ml 11/19/17 [ Rx] Lactobacillus [Culturelle] 1 each PO BID 14 Days #28 cap.sprink 11/19/17 [Rx] Silvasorb 1 appl TP DAILY #1 tube 11/19/17 [Rx] predniSONE [PredniSONE] See Taper PO DAILY 15 Days #54 tablet 11/19/17 [Rx] Allergies/Adverse Reactions: 3 Allergy/AdvReac Type Severity Reaction Status Date / Time cefuroxime Allergy Rash Verified 11/13/17 14:43 cephalexin [From Keflex] Allergy Rash Verified 11/13/17 14:43 doxycycline Allergy Nausea Verified 11/16/17 11:06 gabapentin Allergy Rash Verified 11/13/17 14:43 levofloxacin [From Levaquin] Allergy see comment Verified 11/16/17 11:06 Penicillins [PCN] Allergy See Verified 11/16/17 11:06 Comments Sulfa (Sulfonamide Allergy Rash Verified 11/13/17 14:43 Antibiotics) Certification: Further, I certify that my clinical findings support that this patient is homebound (i.e. absences from home require considerable and taxing effort and are for medical reasons or [employer] or infrequently or short duration when for other reasons) because: COPD, RLE venous stasis ulcer, Type II DM, CHF , HTN, HLD, and generalized weakness. Homebound Reason: Patient requires assistance of a person or device to safely leave home, Leaving home requires considerable and taxing effort due to condition, Severity of cardiac or pulmonary status limits activity tolerance Attestation: My signature below is to certify that this patient is under my care and that I, or nurse practitioner, or a physician's assistant professor of radiology working with me, has a face-to -face encounter with this patient.
[2017-11-19] MEDS: Silvasorb 44.4 ML TUBE TP SCH (16:58)
== END 2017-11-19 17:18 | disposition home health service (06) | DRG 391 ==
LOC: 3NENU 14:38 → EMEROO 14:38 → 3NENU 17:51
PROVIDERS: ADMIT Family Medicine; ATTEND Family Medicine